=== PATIENT | female | born 1980 | race Caucasian/White ===

== ENCOUNTER 2023-12-19 23:27 | Emergency (ER) | payer OTHER, SELFPAY ==
[2023-12-19 23:34] VITALS: BP 127/88; PULSE 68; TEMP 37.3; O2SAT 98; BMI 35.9
--- NOTE | 2023-12-19 23:38 | XR_ITS ---
The [address] [address] Patient Name: KUN LANDAVERDE MRN: [id number] date: 1980 Sex: F Assigned Patient Location: ED.MAIN Current Patient Location: ER Accession/Order Number: [id number] Exam Date: 12/19/2023 23:59 Report Date: 12/20/2023 00:49 At the request of: AUDRA WIGGINS Procedure: XR cervical spine 2-3V EXAM: XR cervical spine 2-3V HISTORY: The patient is a 43-year-old female. Atraumatic pain for 3 days COMPARISON: None. FINDINGS: There is no radiographic evidence of fracture or loss of vertebral body height throughout the cervical spine. There is no malalignment or disc space narrowing. No prevertebral soft tissue swelling is seen. XR/XR cervical spine 2-3V IMPRESSION: Radiographically negative. Electronically authenticated by: LATOSHA IBANEZ Date: 12/20/2023 00:49
--- NOTE | 2023-12-19 23:39 | ED.NECK1 ---
HPI HPI - Neck Pain/Injury General Chief Complaint: Neck Pain/Injury Stated Complaint: Pain in Neck Time Seen by Provider: 12/19/23 23:29 Source: patient Mode of arrival: walk-in Limitations: no limitations History of Present Illness HPI Narrative: 43-year-old female presents for posterior neck pain of 3 days duration. She was helping somebody clean up their yard and she picked up a pallet and felt a snapping sensation in the back of her neck. It has been hurting since. She did not fall. The pain goes towards the shoulder but not into her arms and she has no weakness or numbness. No previous history of neck problems. Lower back does not hurt Related Data Previous Rx's ?Medication ?Instructions ?Recorded acetaminophen 300 mg-codeine 30 mg 1 tab PO Q6H PRN pain 5 days #20 12/20/23 tablet tabs methocarbamol 500 mg tablet 500 mg PO Q8H PRN pain #20 tabs 12/20/23 Allergies Allergy/AdvReac Type Severity Reaction Status Date / Time No Known Drug Allergies Allergy Verified 12/19/23 23:34 Opioid HPI Opioid Management Most Recent Opioid Data: Last Pain Scale 8 12/20/23 00:55 Last ED Pain Assessment 12/20/23 00:01 Last MAR Pain Assessment 12/20/23 00:55 Review of Systems ROS Narrative A ten point review of systems is negative except as noted above. Exam Narrative Exam Narrative: Nurses note and vital signs reviewed and patient is not hypoxic. General: The patient appears well and in no apparent distress. Patient is resting comfortably on cart. Skin: Warm, dry, no pallor noted. There is no rash noted. Head: Normocephalic, atraumatic Eye: Normal conjunctiva, no drainage Ears, Nose, Mouth, and Throat: oral mucosa is moist. Nares patent. Cardiovascular: Regular Rate and Rhythm Respiratory: Patient is in no distress, no accessory muscle use, lungs are clear to auscultation, no wheezing, rales or rhonchi Back: She is reluctant to turn her head. Cervical spine is not palpably tender. No bruising or swelling. GI: Soft and nontender Musculoskeletal: The patient has no evidence of calf tenderness, no pitting edema, symmetrical pulses noted bilaterally Neurological: A&O, normal speech, upper and lower extremity strength intact Psychiatric: Cooperative Constitutional Vital Signs, click to edit/add: Last Vital Signs Temp 99.1 F 12/19/23 23:34 Pulse 68 12/19/23 23:34 Resp 18 12/19/23 23:34 BP 127/88 12/19/23 23:34 Pulse Ox 98 12/19/23 23:34 O2 Del Method Room Air 12/19/23 23:34 Course Vital Signs Vital signs: Vital Signs Temperature 99.1 F 12/19/23 23:34 Pulse Rate 68 12/19/23 23:34 Respiratory Rate 18 12/19/23 23:34 Blood Pressure 127/88 12/19/23 23:34 Pulse Oximetry 98 12/19/23 23:34 Oxygen Delivery Method Room Air 12/19/23 23:34 Temperature 99.1 F 12/19/23 23:34 Pulse Rate 68 12/19/23 23:34 Respiratory Rate 18 12/19/23 23:34 Blood Pressure 127/88 12/19/23 23:34 Pulse Oximetry 98 12/19/23 23:34 Oxygen Delivery Method Room Air 12/19/23 23:34 MDM - Neck Pain/Injury MDM Narrative Medical decision making narrative: X-ray showed no acute finding per radiologist. She was given IM Toradol and Norflex here and prescribed Tylenol 3 and Robaxin for home. Treatment diagnosis and follow-up were discussed with the patient. Differential Diagnosis Differential diagnosis: Likely fracture of cervical spine without lesion of spinal cord, torticollis and strain of neck muscle Lab Data Labs: Lab Results 12/19/23 Range/Units 23:45 Urine HCG, Qual Negative (NEGATIVE) Imaging Data C-spine x-ray: Radiologist's impression: ITS Impressions Cervical Spine X-Ray 12/19/23 23:38 IMPRESSION: Radiographically negative. Electronically authenticated by: LATOSHA IBANEZ Date: 12/20/2023 00:49 Discharge Plan Discharge Stand Alone Forms: Portal Instructions Chief Complaint: Neck Pain/Injury Clinical Impression: Cervical muscle strain Patient Disposition: Home, Self-Care Time of Disposition Decision: 00:55 Condition: Good Mode of Transportation: Private Vehicle Prescriptions / Home Meds: New acetaminophen-codeine 300-30 mg tablet 1 tab PO Q6H PRN (Reason: pain) 5 Days Qty: 20 0RF methocarbamol 500 mg tablet 500 mg PO Q8H PRN (Reason: pain) Qty: 20 0RF Print Language: Lebanese Instructions: Cervical Strain (ED) Referrals: Physician,Non-Staff, MD [Primary Care Provider] - 1 week
[2023-12-20 00:04] LABS: HCG Qualitative Urine* NEGATIVE (NEGATIVE)
[2023-12-20] MEDS: KETOROLAC TROMETHAMINE 60 MG/2 ML VIAL IM (00:55)
[2023-12-20] MEDS: ORPHENADRINE 60 MG/ 2 ML VIAL IM (00:55)
== END 2023-12-20 01:00 | disposition home or self-care (01) ==
PROVIDERS: Emergency Provider Emergency Medicine
DX: S16.1XXA Strain of muscle, fascia and tendon at neck level, initial encounter (principal); X50.9XXA Other and unspecified overexertion or strenuous movements or postures, initial encounter
CPT/HCPCS: 72040; 84703; 96372; 99284

== ENCOUNTER 2024-08-27 16:31 | Observation (INO) | payer OTHER, SELFPAY ==
[2024-08-27] VITALS (28 sets, daily range): BP systolic 103–130; BP diastolic 69–83; PULSE 97–133; TEMP 36.9–37.1; O2SAT 90–98; BMI 37.1; BMI 39.2
--- OUTSIDE RECORDS SUMMARY | 2024-08-27 16:43 | XMS_ITS | CCD ---
Author Organization [facility] Care Team Providers Care Program Supervisor Name Role Phone DR SHANIQUE VALERIO Primary Care Unavailable AMMY PAZ Admitting Unavailable AMMY APZ Consulting Unavailable AMMY PAZ Attending Unavailable MARK OROZCO Consulting Unavailable MONSE CARRIZALES Consulting Unavailable DO Jose Carpio Emergency Provider NO FAMILY, PHYSICIAN Primary Care Provider Whitney Vega Primary Care Provider DELPHINE FERMIN Referring Unavailable MCCULLOUGH WHITNEY B Primary Care Unavailable TEETEE MCCULLOUGHIN B Referring Unavailable SADIA WHITNEY B Primary Care Unavailable OUSMANE SOTO Referring Unavailrafael e WHITNEY MCCULLOUGH Primary Care Unavailable DELPHINE FERMIN Referring Unavailable TEETEE MCCULLOUGHIN B Primary Care Unavailable OUSMANE SOTO Referring Unavailabl e SADIA WHITNEY B Primary Care Unavailable TIFFANIE KEARNEY Consulting Unavailable BHARAT NUÑEZ Admitting Unavaila BHARAT Leos Attending Unavaila ble JAIR HOUSTON Attending Unava OUSMANE Jamison Attending Unavailabl e OUSMANE SOTO Attending Unavailabl Fercho Nelson Attending Unavailab Fercho Zelaya Admitting Unavailab jessica NO FAMILY, PHYSICIAN Primary Care Unavailable Medications Current Medications Medication Drug Class(es) Dates Sig (Normalized) Sig (Original) 24 hr nicotine 0.875 mg/hr transdermal system (1 source) Cholinergic Nicotinic Agonist Start: 04-08-2023 End: 05-20-2023 apply 1 dose transdermal route once daily nicotine (NICODERM CQ) 21 MG/24HR Indications: Tobacco abuse Place 1 patch onto the skin daily 42 patch 0 04/08/2023 05/20/2023 Active PARoxetine hydrochloride 20 mg oral tablet (1 source) Serotonin Reuptake Inhibitor Start: 04-08-2023 take 1 tablet by mouth once daily PARoxetine (PAXIL) 20 MG tablet Indications: Anxiety and depression Take 1 tablet by mouth daily 30 tablet 3 04/08/2023 Active Problems Active Problems Problem Classification Problem Date Documented Date Episodic/Chronic Abdominal pain (4 sources) Unspecified abdominal pain; Translations: [UNSPECIFIED ABDOMINAL PAIN] Onset: 05-17-2022 Episodic Administrative/social admission (2 sources) Patient encounter status; Translations: [Persons encountering health services in other specified circumstances] 09-12-2022 Episodic Epilepsy; convulsions (1 source) Neurological finding; Translations: [Unspecified convulsions] Onset: 04-08-2023 04-08-2023 Episodic Immunizations and screening for infectious disease (4 sources) Encounter for screening for human papillomavirus (HPV); Translations: [Encounter for screening for human papillomavirus (HPV)] Onset: 05-26-2023 Episodic Menstrual disorders (4 sources) Irregular menstruation, unspecified; Translations: [Irregular menstruation, unspecified] Onset: 07-14-2023 Chronic Other nutritional; endocrine; and metabolic disorders (1 source) Body mass index 30+ - obesity; Translations: [Body mass index (BMI) 33.0-33.9, adult] Onset: 04-08-2023 04-08-2023 Chronic Residual codes; unclassified (1 source) Acquired absence of other specified parts of digestive tract; Translations: [ACQ ABSENCE OTH PART DIGESTV TRACT] Onset: 05-21-2022 Episodic Schizophrenia and other psychotic disorders (1 source) Unspecified psychosis not due to a substance or known physiological condition; Translations: [Unspecified psychosis not due to a substance or known physiological condition] Onset: 08-18-2023 Chronic Substance-related disorders (1 source) Nicotine dependence, cigarettes, uncomplicated; Translations: [NICOTINE DEPEND CIGARETTES UNCOMP] Onset: 05-21-2022 Chronic Unclassified (4 sources) BX; Translations: [BX] Onset: 07-25-2023 Unclassified (1 source) Homelessness unspecified; Translations: [Homelessness unspecified] Onset: 08-11-2023 Past or Other Problems Problem Classification Problem Date Documented Da te Episodic/Chronic Other screening for suspected conditions (not mental disorders or infectious disease) (2 sources) Encounter for screening mammogram for malignant neoplasm of breast; Translations: [Encounter for screening mammogram for malignant neoplasm of breast] Onset: 04-30-2023 Episodic Results Test Name Value Interpretation Reference Range Facility Hepatitis Acute [facility] 08-15 Hep A Ab,IgM Non-Reactive Normal NR [facility] Comment on above: Performed By: #### T SHX, PTT, BHCG, CDP, PT #### [facility] [address] [place] [address] Vat Tender: Pierre Cowart DO #### E2, FSH, LH #### [address] [address] Vat Tender: Robert Neri MD Hep B Core Ab,IgM Non-Reactive Normal [facility] Comment on above: Performed By: #### T SHX, PTT, BHCG, CDP, PT #### [facility] [address] [place] [address] Vat Tender: Pierre Cowart DO #### E2, FSH, LH #### [address] [address] Vat Tender: Robert Neri MD Hep B Surf Ag Non-Reactive Normal [facility] Comment on above: Performed By: #### T SHX, PTT, BHCG, CDP, PT #### [facility] [address] [place] [address] Vat Tender: Pierre Cowart DO #### E2, FSH, LH #### [address] [address] Vat Tender: Robert Neri MD Hep C Ab Non-Reactive Normal [facility] Comment on above: Result Comment: The hepatitis C procedure used in our laboratory is a Chemiluminescent test specific for three recombinant HCV antigens. A negative anti-HCV result indicates that the antibodies to hepatitis C virus are not present at this time. Individuals with reactive anti-HCV should be considered infected and infectious until proven otherwise. Confirmation of all equivocal or reactive results is recommended by ordering HCV RNA by PCR. Performed By: #### T SHX, PTT, BHCG, CDP, PT #### [facility] [address] [place] [address] Vat Tender: Pierre Cowart DO #### E2, FSH, LH #### [address] [address] Vat Tender: Robert Neri MD CBC with Diffon 08-13-2023 Abs. Basophil 0.10 k/uL Normal 0.0-0.2 [facility] Comment on above: Performed By: #### T SHX, PTT, BHCG, CDP, PT #### [facility] [place] [address] Vat Tender: Pierre Cowart DO #### E2, FSH, LH #### [address] [address] Vat Tender: Robert Neri MD Abs.Neutrophil (Seg) 5.00 k/uL Normal 1.3-9.1 [facility] Comment on above: Performed By: #### T SHX, PTT, BHCG, CDP, PT #### [facility] [place] [address] Vat Tender: Pierre Cowart DO #### E2, FSH, LH #### [address] [address] Vat Tender: Robert Neri MD Basophils/100 WBC (Bld) 1 % Normal 0-2 [facility] Comment on above: Performed By: #### T SHX, PTT, BHCG, CDP, PT #### [facility] [place] [address] Vat Tender: Pierre Cowart DO #### E2, FSH, LH #### [address] [address] Vat Tender: Robert Neri MD Eosinophils (Bld) [#/Vol] 0.20 10*3/uL Normal 0.0-0.4 [facility] Comment on above: Performed By: #### T SHX, PTT, BHCG, CDP, PT #### [facility] [address] [place] [address] Vat Tender: Pierre Cowart DO #### E2, FSH, LH #### [address] [address] Vat Tender: Robert Neri MD Eosinophils/100 WBC (Bld) 2 % Normal 0-4 [facility] Comment on above: Performed By: #### T SHX, PTT, BHCG, CDP, PT #### [facility] [address] [place] [address] Vat Tender: Pierre Cowart DO #### E2, FSH, LH #### [address] [address] Vat Tender: Robert Neri MD Erythrocyte distribution width (RBC) [Ratio] 14.9 % Normal 11.5-14.9 [facility] Comment on above: Performed By: #### T SHX, PTT, BHCG, CDP, PT #### [facility] [address] [place] [address] Vat Tender: Pierre Cowart DO #### E2, FSH, LH #### [address] [address] Vat Tender: Robert Neri MD Hematocrit (Bld) [Volume fraction] 39.6 % Normal 36-46 [facility] Comment on above: Performed By: #### T SHX, PTT, BHCG, CDP, PT #### [facility] [address] [place] [address] Vat Tender: Pierre Cowart DO #### E2, FSH, LH #### [address] [place] [address] Vat Tender: Robert Neri MD Hemoglobin (Bld) [Mass/Vol] 12.7 g/dL Normal 12.0-16.0 [facility] Comment on above: Performed By: #### T SHX, PTT, BHCG, CDP, PT #### [facility] [place] [address] Vat Tender: Pierre Cowart DO #### E2, FSH, LH #### [address] [place] [address] Vat Tender: Robert Neri MD Lymphocytes (Bld) [#/Vol] 2.70 10*3/uL Normal 1.0-4.8 [facility] Comment on above: Performed By: #### T SHX, PTT, BHCG, CDP, PT #### [facility] [address] [place] [address] Vat Tender: Pierre Cowart DO #### E2, FSH, LH #### [address] [address] Vat Tender: Robert Neri MD Lymphocytes/100 WBC (Bld) 31 % Normal 24-44 [facility] Comment on above: Performed By: #### T SHX, PTT, BHCG, CDP, PT #### [facility] [place] [address] Vat Tender: Pierre Cowart DO #### E2, FSH, LH #### [address] [address] Vat Tender: Robert Neri MD MCH (RBC) [Entitic mass] 27.5 pg Normal 26-34 [facility] Comment on above: Performed By: #### T SHX, PTT, BHCG, CDP, PT #### [facility] [address] [place] [address] Vat Tender: Pierre Cowart DO #### E2, FSH, LH #### [address] [address] Vat Tender: Robert Neri MD MCHC (RBC) [Mass/Vol] 32.0 g/dL Normal 31-37 [facility] Comment on above: Performed By: #### T SHX, PTT, BHCG, CDP, PT #### [facility] [place] [address] Vat Tender: Pierre Cowart DO #### E2, FSH, LH #### [address] [address] Vat Tender: Robert Neri MD MCV (RBC) [Entitic vol] 86.1 fL Normal 80-100 [facility] Comment on above: Performed By: #### T SHX, PTT, BHCG, CDP, PT #### [facility] [place] [address] Vat Tender: Pierre Cowart DO #### E2, FSH, LH #### [address] [address] Vat Tender: Robert Neri MD Monocytes (Bld) [#/Vol] 0.80 10*3/uL Normal 0.1-1.3 [facility] Comment on above: Performed By: #### T SHX, PTT, BHCG, CDP, PT #### [facility] [address] [place] [address] Vat Tender: Pierre Cowart DO #### E2, FSH, LH #### [address] [address] Vat Tender: Robert Neri MD Monocytes/100 WBC (Bld) 10 % High 1-7 [facility] Comment on above: Performed By: #### T SHX, PTT, BHCG, CDP, PT #### [facility] [address] [place] [address] Vat Tender: Pierre Cowart DO #### E2, FSH, LH #### [address] [address] Vat Tender: Robert Neri MD Neutrophil (Seg) 56 % Normal 36-66 [facility] Comment on above: Performed By: #### T SHX, PTT, BHCG, CDP, PT #### [facility] [address] [place] [address] Vat Tender: Pierre Cowart DO #### E2, FSH, LH #### [address] [address] Vat Tender: Robert Neri MD Platelet mean volume (Bld) [Entitic vol] 9.7 fL Normal 6.0-12.0 [facility] Comment on above: Performed By: #### T SHX, PTT, BHCG, CDP, PT #### [facility] [address] [place] [address] Vat Tender: Pierre Cowart DO #### E2, FSH, LH #### [address] [address] Vat Tender: Robert Neri MD Platelets (Bld) [#/Vol] 228 10*3/uL Normal 150-450 [facility] Comment on above: Performed By: #### T SHX, PTT, BHCG, CDP, PT #### [facility] [place] [address] Vat Tender: Pierre Cowart DO #### E2, FSH, LH #### [address] [address] Vat Tender: Robert Neri MD RBC (Bld) [#/Vol] 4.60 10*6/uL Normal 4.0-5.2 [facility] Comment on above: Performed By: #### T SHX, PTT, BHCG, CDP, PT #### [facility] [address] [place] [address] Vat Tender: Pierre Cowart DO #### E2, FSH, LH #### [address] [address] Vat Tender: Robert Neri MD WBC (Bld) [#/Vol] 8.9 10*3/uL Normal 3.5-11.0 [facility] Comment on above: Performed By: #### T SHX, PTT, BHCG, CDP, PT #### [facility] [address] [place] [address] Vat Tender: Pierre Cowart DO #### E2, FSH, LH #### [address] [address] Vat Tender: Robert Neri MD Comp Metabolic Pr/rfx MGon 1 10-14-2022 Albumin [Mass/Vol] 3.5 g/dL Normal 3.5-5.2 [facility] Comment on above: Performed By: #### T SHX, PTT, BHCG, CDP, PT #### [facility] [address] [place] [address] Vat Tender: Pierre Cowart DO #### E2, FSH, LH #### [address] [address] Vat Tender: Robert Neri MD Alkaline Phos 73 U/L Normal 35-104 [facility] Comment on above: Performed By: #### T SHX, PTT, BHCG, CDP, PT #### [facility] [address] [place] [address] Vat Tender: Pierre Cowart DO #### E2, FSH, LH #### [address] [address] Vat Tender: Robert Neri MD ALT [Catalytic activity/Vol] 36 U/L High 5-33 [facility] Comment on above: Performed By: #### T SHX, PTT, BHCG, CDP, PT #### [facility] [address] [place] [address] Vat Tender: Pierre Cowart DO #### E2, FSH, LH #### [address] [address] Vat Tender: Robert Neri MD Anion gap [Moles/Vol] 6 mmol/L Low 9-17 [facility] Comment on above: Performed By: #### T SHX, PTT, BHCG, CDP, PT #### [facility] [address] [place] [address] Vat Tender: Pierre Cowart DO #### E2, FSH, LH #### [address] [address] Vat Tender: Robert Neri MD AST [Catalytic activity/Vol] 25 U/L Normal <32 [facility] Comment on above: Performed By: #### T SHX, PTT, BHCG, CDP, PT #### [facility] [address] [place] [address] Vat Tender: Pierre Cowart DO #### E2, FSH, LH #### [address] [address] Vat Tender: Robert Neri MD Bilirubin [Mass/Vol] 0.3 mg/dL Normal 0.3-1.2 [facility] Comment on above: Performed By: #### T SHX, PTT, BHCG, CDP, PT #### [facility] [address] [place] [address] Vat Tender: Pierre Cowart DO #### E2, FSH, LH #### [address] [address] Vat Tender: Robert Neri MD Calcium [Mass/Vol] 8.6 mg/dL Normal 8.6-10.4 [facility] Comment on above: Performed By: #### T SHX, PTT, BHCG, CDP, PT #### [facility] [address] [place] [address] Vat Tender: Pierre Cowart DO #### E2, FSH, LH #### [address] [address] Vat Tender: Robert Neri MD Chloride [Moles/Vol] 106 mmol/L Normal 98-107 [facility] Comment on above: Performed By: #### T SHX, PTT, BHCG, CDP, PT #### [facility] [address] [place] [address] Vat Tender: Pierre Cowart DO #### E2, FSH, LH #### [address] [address] Vat Tender: Robert Neri MD CO2 [Moles/Vol] 28 mmol/L Normal 20-31 [facility] Comment on above: Performed By: #### T SHX, PTT, BHCG, CDP, PT #### [facility] [address] [place] [address] Vat Tender: Pierre Cowart DO #### E2, FSH, LH #### [address] [address] Vat Tender: Robert Neri MD Creatinine [Mass/Vol] 0.8 mg/dL Normal 0.5-0.9 [facility] Comment on above: Performed By: #### T SHX, PTT, BHCG, CDP, PT #### [facility] [address] [place] [address] Vat Tender: Pierre Cowart DO #### E2, FSH, LH #### [address] [phone] Vat Tender: Robert Neri MD GFR/1.73 sq M.predicted among non-blacks MDRD (S/P/Bld) [Vol rate/Area] mL/min/{1.73_m2} Normal >60 [facility] Comment on above: Result Comment: These results are not intended for use in patients <18 years of age. eGFR results are calculated without a race factor using the 2020 CKD-EPI equation. Careful clinical correlation is recommended, particularly when comparing to results calculated using previous equations. The CKD-EPI equation is less accurate in patients with extremes of muscle mass, extra-renal metabolism of creatine, excessive creatine ingestion, or following therapy that affects renal tubular secretion. Performed By: #### T SHX, PTT, BHCG, CDP, PT #### [facility] [address] [place] [address] Vat Tender: Pierre Cowart DO #### E2, FSH, LH #### [address] [phone] Vat Tender: Robert Neri MD Glucose [Mass/Vol] 94 mg/dL Normal 70-99 [facility] Comment on above: Performed By: #### T SHX, PTT, BHCG, CDP, PT #### [facility] [address] [place] [address] Vat Tender: Pierre Cowart DO #### E2, FSH, LH #### [address] [address] Vat Tender: Robert Neri MD Potassium [Moles/Vol] 4.6 mmol/L Normal 3.7-5.3 [facility] Comment on above: Performed By: #### T SHX, PTT, BHCG, CDP, PT #### [facility] [place] [address] Vat Tender: Pierre Cowart DO #### E2, FSH, LH #### [address] [address] Vat Tender: Robert Neri MD Protein [Mass/Vol] 5.8 g/dL Low 6.4-8.3 [facility] Comment on above: Performed By: #### T SHX, PTT, BHCG, CDP, PT #### [facility] [place] [address] Vat Tender: Pierre Cowart DO #### E2, FSH, LH #### [address] [address] Vat Tender: Robert Neri MD Sodium [Moles/Vol] 140 mmol/L Normal 135-144 [facility] Comment on above: Performed By: #### T SHX, PTT, BHCG, CDP, PT #### [facility] [place] [address] Vat Tender: Fanelly, Pierre, DO #### E2, FSH, LH #### [address] [place] [address] Vat Tender: Robert Neri MD Urea nitrogen [Mass/Vol] 7 mg/dL Normal 6-20 [facility] Comment on above: Performed By: #### T SHX, PTT, BHCG, CDP, PT #### [facility] [address] [place] [address] Vat Tender: Pierre Cowart DO #### E2, FSH, LH #### [address] [address] Vat Tender: Robert Neri MD Hemoglobin A1Con 9 Glucose [Mass/Vol] 111 mg/dL Normal [facility] Comment on above: Result Comment: The ADA and AACC recommend providing the estimated average glucose result to permit better patient understanding of their HBA1c result. Performed By: #### T SHX, PTT, BHCG, CDP, PT #### [facility] [address] [place] [address] Vat Tender: Pierre Cowart DO #### E2, FSH, LH #### [address] [address] Vat Tender: Robert Neri MD HbA1c (Bld) [Mass fraction] 5.5 % Normal 4.0-6.0 [facility] Comment on above: Performed By: #### T SHX, PTT, BHCG, CDP, PT #### [facility] [address] [place] [address] Vat Tender: Pierre Cowart DO #### E2, FSH, LH #### [address] [address] Vat Tender: Robert Neri MD Lipid Profileon 08-13-2023 Cholesterol [Mass/Vol] 116 mg/dL Normal <200 [facility] Comment on above: Result Comment: Cholesterol Guidelines: <200 Desirable 200-240 Borderline >240 Undesirable Performed By: #### T SHX, PTT, BHCG, CDP, PT #### [facility] [address] [place] [address] Vat Tender: Pierre Cowart DO #### E2, FSH, LH #### [address] [address] Vat Tender: Robert Neri MD Cholesterol in HDL [Mass/Vol] 48 mg/dL Normal >40 [facility] Comment on above: Result Comment: HDL Guidelines: <40 Undesirable 40-59 Borderline >59 Desirable Performed By: #### T SHX, PTT, BHCG, CDP, PT #### [facility] [place] [address] Vat Tender: Pierre Cowart DO #### E2, FSH, LH #### [address] [address] Vat Tender: Robert Neri MD Cholesterol in LDL [Mass/Vol] 52 mg/dL Normal 0-130 [facility] Comment on above: Result Comment: LDL Guidelines: <100 Desirable 100-129 Near to/above Desirable 130-159 Borderline >159 Undesirable Direct (measured) LDL and calculated LDL are not interchangeable tests. Performed By: #### T SHX, PTT, BHCG, CDP, PT #### [facility] [address] [place] [address] Vat Tender: Pierre Cowart DO #### E2, FSH, LH #### [address] [address] Vat Tender: Robert Neri MD Cholesterol.total/Yamileth sterol in HDL [Mass ratio] 2.4 {ratio} Normal <5 [facility] Comment on above: Performed By: #### T SHX, PTT, BHCG, CDP, PT #### [facility] [place] [address] Vat Tender: Pierre Cowart DO #### E2, FSH, LH #### [address] [address] Vat Tender: Robert Neri MD Triglyceride [Mass/Vol] 81 mg/dL Normal <150 [facility] Comment on above: Result Comment: Triglyceride Guidelines: <150 Desirable 150-199 Borderline 200-499 High >499 Very high Based on AHA Guidelines for fasting triglyceride, May 2012. Performed By: #### T SHX, PTT, BHCG, CDP, PT #### [facility] [address] [place] [address] Vat Tender: Pierre Cowart DO #### E2, FSH, LH #### [address] [address] Vat Tender: Robert Neri MD TSH w/reflex to FT4on 2022 Thyroid Stim. Horm. 3.88 uIU/mL Normal 0.30-5.00 [facility] Comment on above: Performed By: #### T SHX, PTT, BHCG, CDP, PT #### [facility] [address] [place] [address] Vat Tender: Pierre Cowart DO #### E2, FSH, LH #### [address] [address] Vat Tender: Robert Neri MD Drug Scr, Abuse, Uron 2022 Amphetamine(s),Ur Negative Normal NEG [facility] Comment on above: Result Comment: (Positive cutoff 1000 ng/mL) Performed By: #### U MICAO, SCOTT, UAX #### [facility] [address] [place] [address] Vat Tender: Pierre Cowart DO Barbiturate(s),Ur Negative Normal NEG [facility] Comment on above: Result Comment: (Positive cutoff 200 ng/mL) Performed By: #### U MICAO, SCOTT, UAX #### [facility] [place] [address] Vat Tender: Pierre Cowart DO Benzodiazepine(s) Negative Normal NEG [facility] Comment on above: Result Comment: (Positive cutoff 200 ng/mL) Performed By: #### U MICAO, SCOTT, UAX #### [facility] [address] [place] [address] Vat Tender: Pierre Cowart DO Cannabinoid(s),Ur Positive Abnormal NEG [facility] Comment on above: Result Comment: (Positive cutoff 50 ng/mL) Performed By: #### U MICAO, SCOTT, UAX #### [facility] [address] [place] [address] Vat Tender: Pierre Cowart DO Cocaine Metabolite Negative Normal NEG [facility] Comment on above: Result Comment: (Positive cutoff 300 ng/mL) Performed By: #### U MICAO, SCOTT, UAX #### [facility] [address] [place] [address] Vat Tender: Pierre Cowart DO Fentanyl, Urine Negative Normal NEG [facility] Comment on above: Result Comment: (Positive cutoff 5 ng/ml) Performed By: #### U MICAO, SCOTT, UAX #### [facility] [address] [place] [address] Vat Tender: Pierre Cowart DO Interpretive Info Assay provides medical screening only. The absence of expected drug(s) and/or Normal [facility] Comment on above: Result Comment: meta bolite(s) may indicate diluted or adulterated urine, limitations of testing or timing of collection. Testing for legal purposes should be confirmed by another method. To request confirmation of test result, please call the lab within 7 days of sample submission. Performed By: #### U MICAO, SCOTT, UAX #### [facility] [address] [place] [address] Vat Tender: Pierre Cowart DO Methadone Ql (U) Negative Normal NEG [facility] Comment on above: Result Comment: (Positive cutoff 300 ng/mL) Performed By: #### U MICAO, SCOTT, UAX #### [facility] [address] [place] [address] Vat Tender: Pierre Cowart DO Opiate(s), Ur Negative Normal NEG [facility] Comment on above: Result Comment: (Positive cutoff 300 ng/mL) Performed By: #### U MICAO, SCOTT, UAX #### [facility] [address] [place] [address] Vat Tender: Pierre Cowart DO Oxycodone, Urine Negative Normal NEG [facility] Comment on above: Result Comment: (Positive cutoff 100 ng/mL) Performed By: #### U MICAO, SCOTT, UAX #### [facility] [address] [place] [address] Vat Tender: Pierre Cowart DO Phencyclidine, Ur Negative Normal NEG [facility] Comment on above: Result Comment: (Positive cutoff 25 ng/mL) Performed By: #### U MICAO, SCOTT, UAX #### [facility] [address] [place] [address] 59341 Vat Tender: Pierre Cowart DO UA w/Reflex Cultureon 2022 Bilirubin, SemiQt,Ur Negative Normal NEG [facility] Comment on above: Performed By: #### U MICAO, SCOTT, UAX #### [facility] [address] [place] [address] 97490 Vat Tender: Pierre Cowart DO Blood, Urine Negative Normal NEG [facility] Comment on above: Performed By: #### U MICAO, SCOTT, UAX #### [facility] [address] [place] [address] 7[address]42 Vat Tender: Pierre Cowart DO Clarity (U) Turbid Abnormal CLEAR [facility] Comment on above: Performed By: #### U MICAO, SCOTT, UAX #### [facility] [address] [place] [address] 91763 Vat Tender: Pierre Cowart DO Color (U) Yellow Normal YEL [facility] Comment on above: Performed By: #### U KYLIEO, SCOTT, UAX #### [facility] [address] [place] [address] 01722 Vat Tender: Pierre Cowart DO Glucose Ql (U) Negative Normal NEG [facility] Comment on above: Performed By: #### U MICAO, SCOTT, UAX #### [facility] [address] [place] [address] 56769 Vat Tender: Pierre Cowart DO Ketones Ql (U) Negative Normal NEG [facility] Comment on above: Performed By: #### U MICAO, SCOTT, UAX #### [facility] [address] [place] [address] 01895 Vat Tender: Pierre Cowart DO Leukocyte esterase Test strip Ql (U) Negative Normal NEG [facility] Comment on above: Performed By: #### U MICAO, SCOTT, UAX #### [facility] [address] [place] [address] 89927 Vat Tender: Pierre Cowart DO Nitrite,Ur Negative Normal NEG [facility] Comment on above: Performed By: #### U MICAO, SCOTT, UAX #### [facility] [place] [address] Vat Tender: Pierre Cowart DO PH,Ur >=9.0 Normal 5.0-8.0 [facility] Comment on above: Performed By: #### U MICAO, SCOTT, UAX #### [facility] [address] [place] [address] 17179 Vat Tender: Pierre Cowart DO Protein Ql (U) Negative Normal NEG [facility] Comment on above: Performed By: #### U MICAO, SCOTT, UAX #### [facility] [address] [place] [address] 21886 Vat Tender: Pierre Cowart DO Spec. [place],Ur 1.016 Normal 1.000-1.030 [facility] Comment on above: Performed By: #### U MICAO, SCOTT, UAX #### [facility] [address] [place] [address] 33189 Vat Tender: Pierre Cowart DO Urobilinogen,Ur Normal Normal 0.0-1.0 [facility] Comment on above: Performed By: #### U MICAO, SCOTT, UAX #### [facility] [address] [place] [address] 50014 Vat Tender: Pierre Cowart DO Urinalysis,Microon 3 Bacteria FEW Abnormal NONE [facility] Comment on above: Performed By: #### T SHX, PTT, BHCG, CDP, PT #### [facility] [address] [place] [address] 45144 Vat Tender: Pierre Cowart DO #### E2, FSH, LH #### [address] [address] Vat Tender: Robert Neri MD Casts 0 TO 2 Abnormal NONE [facility] Comment on above: Performed By: #### T SHX, PTT, BHCG, CDP, PT #### [facility] [address] [place] [address] Vat Tender: Pierre Cowart DO #### E2, FSH, LH #### [address] [address] Vat Tender: Robert Neri MD Epithelial cells LM Ql (Urine sed) 10 TO 20 Normal [facility] Comment on above: Performed By: #### T SHX, PTT, BHCG, CDP, PT #### [facility] [address] [place] [address] Vat Tender: Pierre Cowart DO #### E2, FSH, LH #### [address] [address] Vat Tender: Robert Neri MD Urine RBC's 0 TO 2 Normal R02 [facility] Comment on above: Performed By: #### T SHX, PTT, BHCG, CDP, PT #### [facility] [address] [place] [address] Vat Tender: Pierre Cowart DO #### E2, FSH, LH #### [address] [address] Vat Tender: Robert Neri MD Urine WBC's 3 to 5 Abnormal R05 [facility] Comment on above: Performed By: #### T SHX, PTT, BHCG, CDP, PT #### [facility] [address] [place] [address] Vat Tender: Pierre Cowart DO #### E2, FSH, LH #### [address] [place] [phone] Vat Tender: Robert Neri MD Surgical Pathology Reporton 07-25-2023 Surgical Pathology Report (NOTE) Path Number: [id number] -- Diagnosis -- UTERINE CAVITY, BIOPSY: - BENIGN ENDOCERVICAL TISSUE, SCANT SQUAMOUS EPITHELIUM AND MUCUS. - NO DIAGNOSTIC ENDOMETRIAL TISSUE IS IDENTIFIED. - NEGATIVE FOR ATYPIA AND MALIGNANCY. Marvin Mnceil M.D. Electronically Signed Out [facility]/07/29/2023 Clinical Information Pre-Op Diagnosis: IRREGULAR MENSES; SEVERE DYSMENORRHEA; LEFT OVARIAN CYST Operative Findings: ENDOMETRIUM kb Source of Specimen A: ENDOMETRIUM BIOPSY Gross Description KIERA LANDAVERDETHALIA BX Received in formalin is cloudy mason mucous, 2.8 x 2.5 x 0.2 cm in aggregate. Entirely 1cs. jj tm [facility]/kb2:07/28/2023 Microscopic Description The specimen consists of detached fragments of benign endocervical epithelium and stroma, scant squamous epithelium, and intermixed mucus. No diagnostic endometrial tissue is identified. There is no evidence of atypia or malignancy. Processing Lab: [address] [id number] Interpretation Performed at [address] [id number] SURGICAL PATHOLOGY CONSULTATION Patient Name: KIERA LANDAVERDE [facility] Rec: [id number] [facility] ANATOMIC PATHOLOGY [address] [place] [id number] Normal [facility] APTTon 07-14-2023 aPTT Coag (Bld) [Time] 29.9 s Normal 24.0-36.0 [facility] Comment on above: Result Comment: IV Heparin Therapy Range: 62.0-94.0 Performed By: #### B HCG, CDP, PT, TSHX, PTT #### [facility] [address] [place], [place] [id number] Vat Tender: Pierre Cowart DO #### E2, FSH, LH #### [address] [place] [address] Vat Tender: Robert Neri MD Performed By: #### T SHX, PTT, BHCG, CDP, PT #### [facility] [address] [place] [address] Vat Tender: Pierre Cowart DO #### E2, FSH, LH #### [address] [address] Vat Tender: Robert Neri MD CBC with Diffon 07-14-2023 Abs. Basophil 0.10 k/uL Normal 0.0-0.2 [facility] Comment on above: Performed By: #### B HCG, CDP, PT, TSHX, PTT #### [facility] [address] [place] [address] Vat Tender: Pierre Cowart DO #### E2, FSH, LH #### [address] [address] Vat Tender: Robert Neri MD Performed By: #### T SHX, PTT, BHCG, CDP, PT #### [facility] [address] [place] [address] Vat Tender: Pierre Cowart DO #### E2, FSH, LH #### [address] [address] Vat Tender: Robert Neri MD Abs.Neutrophil (Seg) 6.70 k/uL Normal 1.3-9.1 [facility] Comment on above: Performed By: #### B HCG, CDP, PT, TSHX, PTT #### [facility] [address] [place] [address] Vat Tender: Pierre Cowart DO #### E2, FSH, LH #### [address] [address] Vat Tender: Robert Neri MD Performed By: #### T SHX, PTT, BHCG, CDP, PT #### [facility] [address] [place] [address]231 Vat Tender: Pierre Cowart DO #### E2, FSH, LH #### [address] [address] Vat Tender: Robert Neri MD Basophils/100 WBC (Bld) 1 % Normal 0-2 [facility] Comment on above: Performed By: #### B HCG, CDP, PT, TSHX, PTT #### [facility] [address] [place] [address] 9[address] Vat Tender: Pierre Cowart DO #### E2, FSH, LH #### [place] [address] Vat Tender: Robert Neri MD Performed By: #### T SHX, PTT, BHCG, CDP, PT #### [facility] [address] [place] [address] Vat Tender: Pierre Cowart DO #### E2, FSH, LH #### [place] [address] Vat Tender: Robert Neri MD Eosinophils (Bld) [#/Vol] 0.10 10*3/uL Normal 0.0-0.4 [facility] Comment on above: Performed By: #### B HCG, CDP, PT, TSHX, PTT #### [facility] [address] [place] [address] Vat Tender: Pierre Cowart DO #### E2, FSH, LH #### [address] [address] Vat Tender: Robert Neri MD Performed By: #### T SHX, PTT, BHCG, CDP, PT #### [facility] [address] [place] [address] Vat Tender: Pierre Cowart DO #### E2, FSH, LH #### [address] [address] Vat Tender: Robert Neri MD Eosinophils/100 WBC (Bld) 1 % Normal 0-4 [facility] Comment on above: Performed By: #### B HCG, CDP, PT, TSHX, PTT #### [facility] [address] [place] [address] Vat Tender: Pierre Cowart DO #### E2, FSH, LH #### [address] [phone] Vat Tender: Robert Neri MD Performed By: #### T SHX, PTT, BHCG, CDP, PT #### [facility] [place] [address] Vat Tender: Pierre Cowart DO #### E2, FSH, LH #### [address] [address] Vat Tender: Robert Neri MD Erythrocyte distribution width (RBC) [Ratio] 14.4 % Normal 11.5-14.9 [facility] Comment on above: Performed By: #### B HCG, CDP, PT, TSHX, PTT #### [facility] [place] [address] Vat Tender: Pierre Cowart DO #### E2, FSH, LH #### [address] [address] Vat Tender: Robert Neri MD Performed By: #### T SHX, PTT, BHCG, CDP, PT #### [facility] [place] [address] Vat Tender: Pierre Cowart DO #### E2, FSH, LH #### [address] [address] Vat Tender: Robert Neri MD Hematocrit (Bld) [Volume fraction] 43.1 % Normal 36-46 [facility] Comment on above: Performed By: #### B HCG, CDP, PT, TSHX, PTT #### [facility] [address] [place] [address] Vat Tender: Pierre Cowart DO #### E2, FSH, LH #### [address] [address] Vat Tender: Robert Neri MD Performed By: #### T SHX, PTT, BHCG, CDP, PT #### [facility] [address] [place] [address] 24050 Vat Tender: Pierre Cowart DO #### E2, FSH, LH #### [address] [address] Vat Tender: Robert Neri MD Hemoglobin (Bld) [Mass/Vol] 14.1 g/dL Normal 12.0-16.0 [facility] Comment on above: Performed By: #### B HCG, CDP, PT, TSHX, PTT #### [facility] [address] [place] [address] Vat Tender: Pierre Cowart DO #### E2, FSH, LH #### [address] [address] Vat Tender: Robert Neri MD Performed By: #### T SHX, PTT, BHCG, CDP, PT #### [facility] [address] [place] [address] 8[address]32 Vat Tender: Pierre Cowart DO #### E2, FSH, LH #### [address] [address] Vat Tender: Robert Neri MD Lymphocytes (Bld) [#/Vol] 1.80 10*3/uL Normal 1.0-4.8 [facility] Comment on above: Performed By: #### B HCG, CDP, PT, TSHX, PTT #### [facility] [address] [place] [address]88 Vat Tender: Pierre Cowart DO #### E2, FSH, LH #### [address] [address] Vat Tender: Robert Neri MD Performed By: #### T SHX, PTT, BHCG, CDP, PT #### [facility] [address] [place] [address] Vat Tender: Pierre Cowart DO #### E2, FSH, LH #### [address] [address] Vat Tender: Robert Neri MD Lymphocytes/100 WBC (Bld) 19 % Low 24-44 [facility] Comment on above: Performed By: #### B HCG, CDP, PT, TSHX, PTT #### [facility] [address] [place] [address] Vat Tender: Pierre Cowart DO #### E2, FSH, LH #### [address] [address] Vat Tender: Robert Neri MD Performed By: #### T SHX, PTT, BHCG, CDP, PT #### [facility] [address] [place] [address] Vat Tender: Pierre Cowart DO #### E2, FSH, LH #### [address] [address] Vat Tender: Robert Neri MD MCH (RBC) [Entitic mass] 27.8 pg Normal 26-34 [facility] Comment on above: Performed By: #### B HCG, CDP, PT, TSHX, PTT #### [facility] [address] [place] [address] Vat Tender: Pierre Cowart DO #### E2, FSH, LH #### [address] [address] Vat Tender: Robert Neri MD Performed By: #### T SHX, PTT, BHCG, CDP, PT #### [facility] [address] [place] [address] Vat Tender: Pierre Cowart DO #### E2, FSH, LH #### [address] [address] Vat Tender: Robert Neri MD MCHC (RBC) [Mass/Vol] 32.6 g/dL Normal 31-37 [facility] Comment on above: Performed By: #### B HCG, CDP, PT, TSHX, PTT #### [facility] [address] [place] [address] Vat Tender: Pierre Cowart DO #### E2, FSH, LH #### [address] [address] Vat Tender: Robert Neri MD Performed By: #### T SHX, PTT, BHCG, CDP, PT #### [facility] [address] [place] [address] Vat Tender: Pierre Cowart DO #### E2, FSH, LH #### [address] [address] Vat Tender: Robert Neri MD MCV (RBC) [Entitic vol] 85.2 fL Normal 80-100 [facility] Comment on above: Performed By: #### B HCG, CDP, PT, TSHX, PTT #### [facility] [place] [address] Vat Tender: Pierre Cowart DO #### E2, FSH, LH #### [address] [address] Vat Tender: Robert Neri MD Performed By: #### T SHX, PTT, BHCG, CDP, PT #### [facility] [address] [place] [address] Vat Tender: Pierre Cowart DO #### E2, FSH, LH #### [address] [address] Vat Tender: Robert Neri MD Monocytes (Bld) [#/Vol] 1.00 10*3/uL Normal 0.1-1.3 [facility] Comment on above: Performed By: #### B HCG, CDP, PT, TSHX, PTT #### [facility] [address] [place] [address] Vat Tender: Pierre Cowart DO #### E2, FSH, LH #### [address] [address] Vat Tender: Robert Neri MD Performed By: #### T SHX, PTT, BHCG, CDP, PT #### [facility] [address] [place] [address] Vat Tender: Pierre Cowart DO #### E2, FSH, LH #### [address] [place] [address] Vat Tender: Robert Neri MD Monocytes/100 WBC (Bld) 11 % High 1-7 [facility] Comment on above: Performed By: #### B HCG, CDP, PT, TSHX, PTT #### [facility] [address] [place] [address] Vat Tender: Pierre Cowart DO #### E2, FSH, LH #### [address] [address] Vat Tender: Robert Neri MD Performed By: #### T SHX, PTT, BHCG, CDP, PT #### [facility] [address] [place] [address] Vat Tender: Pierre Cowart DO #### E2, FSH, LH #### [address] [address] Vat Tender: Robert Neri MD Neutrophil (Seg) 68 % High 36-66 [facility] Comment on above: Performed By: #### B HCG, CDP, PT, TSHX, PTT #### [facility] [address] [place] [address] Vat Tender: Pierre Cowart DO #### E2, FSH, LH #### [address] [address] Vat Tender: Robert Neri MD Performed By: #### T SHX, PTT, BHCG, CDP, PT #### [facility] [address] [place] [address] Vat Tender: Pierre Cowart DO #### E2, FSH, LH #### [address] [address] Vat Tender: Robert Neri MD Platelet mean volume (Bld) [Entitic vol] 10.3 fL Normal 6.0-12.0 [facility] Comment on above: Performed By: #### B HCG, CDP, PT, TSHX, PTT #### [facility] [address] [place] [address] Vat Tender: Pierre Cowart DO #### E2, FSH, LH #### [address] [address] Vat Tender: Robert Neri MD Performed By: #### T SHX, PTT, BHCG, CDP, PT #### [facility] [address] [place] [address] Vat Tender: Pierre Cowart DO #### E2, FSH, LH #### [address] [address] Vat Tender: Robert Neri MD Platelets (Bld) [#/Vol] 226 10*3/uL Normal 150-450 [facility] Comment on above: Performed By: #### B HCG, CDP, PT, TSHX, PTT #### [facility] [address] [place] [address] Vat Tender: Pierre Cowart DO #### E2, FSH, LH #### [address] [address] Vat Tender: Robert Neri MD Performed By: #### T SHX, PTT, BHCG, CDP, PT #### [facility] [address] [place] [address] Vat Tender: Pierre Cowart DO #### E2, FSH, LH #### [address] [address] Vat Tender: Robert Neri MD RBC (Bld) [#/Vol] 5.06 10*6/uL Normal 4.0-5.2 [facility] Comment on above: Performed By: #### B HCG, CDP, PT, TSHX, PTT #### [facility] [address] [place] [address] Vat Tender: Pierre Cowart DO #### E2, FSH, LH #### [address] [address] Vat Tender: Robert Neri MD Performed By: #### T SHX, PTT, BHCG, CDP, PT #### [facility] [address] [place] [address] Vat Tender: Pierre Cowart DO #### E2, FSH, LH #### [address] [address] Vat Tender: Robert Neri MD WBC (Bld) [#/Vol] 9.7 10*3/uL Normal 3.5-11.0 [facility] Comment on above: Performed By: #### B HCG, CDP, PT, TSHX, PTT #### [facility] [address] [place] [address] Vat Tender: Pierre Cowart DO #### E2, FSH, LH #### [address] [address] Vat Tender: Robert Neri MD Performed By: #### T SHX, PTT, BHCG, CDP, PT #### [facility] [address] [place] [address] Vat Tender: Pierre Cowart DO #### E2, FSH, LH #### [address] [address] Vat Tender: Robert Neri MD Estradiolon 07-14-2023 Estradiol 107.0 pg/mL Normal [facility] Comment on above: Result Comment: FEMALES: Normally menstruating Luteal phase 60-232 Follicular phase 31-90 Midcycle phase 60-533 Postmenopausal (untreated) <138 Fulvestrant treatment will show an increased estradiol concentration with this methodology. Alternate methodologies are available upon request. Performed By: #### B HCG, CDP, PT, TSHX, PTT #### [facility] [address] [place] [address] Vat Tender: Pierre Cowart DO #### E2, FSH, LH #### [facility] [employer] [address] [place] [address] Vat Tender: Robert Neri MD Performed By: #### T SHX, PTT, BHCG, CDP, PT #### [facility] [address] [place] [address] Vat Tender: Pierre Cowart DO #### E2, FSH, LH #### [facility] [employer] [address] [place] [address] Vat Tender: Robert Neri MD Follicle Stim. Hormon 2022 Follicle Stim. Horm 7.7 mIU/mL Normal [facility] Comment on above: Result Comment: Refe rence Range: Male: 1.5-12.4 Ovulating Female: Follicular Phase 3.5-12.5 Ovulation Phase 4.7-21.5 Luteal Phase 1.7-7.7 Postmenopausal Female: 25.8-134.8 Performed By: #### B HCG, CDP, PT, TSHX, PTT #### [facility] [address] [place] [address] Vat Tender: Pierre Cowart DO #### E2, FSH, LH #### [facility] [address] [place] [address] Vat Tender: Robert Neri MD Performed By: #### T SHX, PTT, BHCG, CDP, PT #### [facility] [address] [place] [address] Vat Tender: Pierre Cowart DO #### E2, FSH, LH #### [address] [address] Vat Tender: Robert Neri MD HCG, Quanton 07-14-2023 HCG, Quant <1.0 Normal <5 [facility] Comment on above: Result Comment: Non-preg premeno <=5 Postmeno <=8 Male <=3 If HCG results do not concur with clinical observations, additional testing to confirm results is recommended. Performed By: #### B HCG, CDP, PT, TSHX, PTT #### [facility] [address] [place] [address] Vat Tender: Pierre Cowart DO #### E2, FSH, LH #### [address] [address] Vat Tender: Robert Neri MD Performed By: #### T SHX, PTT, BHCG, CDP, PT #### [facility] [address] [place] [address] Vat Tender: Pierre Cowart DO #### E2, FSH, LH #### [address] [address] Vat Tender: Robert Neri MD Luteinizing Hormoneon 2 Luteinizing Hormone 7.0 mIU/mL Normal 1.7-8.6 [facility] Comment on above: Result Comment: Refe rence Range: Male: 1.7-8.6 Ovulating Female: Follicular Phase 2.4-12.6 Ovulation Phase 14.0-95.6 Luteal Phase 1.0-11.4 Postmenopausal Female: 7.7-58.5 Performed By: #### B HCG, CDP, PT, TSHX, PTT #### [facility] [address] [place] [address] Vat Tender: Pierre Cowart DO #### E2, FSH, LH #### [address] [address] Vat Tender: Robert Neri MD Performed By: #### T SHX, PTT, BHCG, CDP, PT #### [facility] [address] [place] [address] Vat Tender: Pierre Cowart DO #### E2, FSH, LH #### [address] [address] Vat Tender: Robert Neri MD PTon 07-14-2023 INR Coag (PPP) [Relative time] 1.0 {INR} Normal [facility] Comment on above: Result Comment: Therapeutic Range: Moderate Anticoagulant Intensity: INR = 2.0-3.0 High Anticoagulant Intensity: INR = 2.5-3.5 Performed By: #### B HCG, CDP, PT, TSHX, PTT #### [facility] [place] [address] Vat Tender: Pierre Cowart DO #### E2, FSH, LH #### [address] [address] Vat Tender: Robert Neri MD Performed By: #### T SHX, PTT, BHCG, CDP, PT #### [facility] [address] [place] [address] Vat Tender: Pierre Cowart DO #### E2, FSH, LH #### [address] [address] Vat Tender: Robert Neri MD PT Coag (PPP) [Time] 13.6 s Normal 11.8-14.6 [facility] Comment on above: Performed By: #### B HCG, CDP, PT, TSHX, PTT #### [facility] [address] [facility] [place] [address] Vat Tender: Pierre Cowart DO #### E2, FSH, LH #### [address] [address] Vat Tender: Robert Neri MD Performed By: #### T SHX, PTT, BHCG, CDP, PT #### [facility] [address] [place] [address]. [place] [address] Vat Tender: Pierre Cowart DO #### E2, FSH, LH #### [address] [address] Vat Tender: Robert Neri MD TSH w/reflex to FT4on 2022 Thyroid Stim. Horm. 3.02 uIU/mL Normal 0.30-5.00 [facility] Comment on above: Performed By: #### B HCG, CDP, PT, TSHX, PTT #### [facility] [address] [place] [address]. [place] [address] Vat Tender: Pierre Cowart DO #### E2, FSH, LH #### [address] [address] Vat Tender: Robert Neri MD Performed By: #### T SHX, PTT, BHCG, CDP, PT #### [facility] [address] [place] [address] Vat Tender: Pierre Cowart DO #### E2, FSH, LH #### [address] [address] Vat Tender: Robert Neri MD US PELVIS COMPLETEon 023 US PELVIS COMPLETE Table formatting from the original result was not included. GYNECOLOGY ULTRASOUND REPORT [facility] Obstetrics AND Gynecology [facility]; [address] [place] [address] mn Fax 07/14/2023 Contact Serial #: [id number] Kiera Landaverde Date of : 1980 Age: 42 y.o. The ultrasound images were reviewed. Please see the attached ultrasound report. Safety Spec: Demetria Anthony RDMS Assessment: Kiera Landaverde is a 42 y.o. female 1. Irregular menses Specific Ultrasound Imaging Obtained: Transabdominal Approach: Yes Transvaginal Approach: Yes Limitations of Study Encountered requiring Trans Vaginal imaging: Overlying bowel AND gas limiting the study: No Poor prep for procedure limiting study: Yes Elevated BMI limiting study: No Ovaries are NOT seen on Transabdominal imaging, required to better visualize structures, or a retroverted uterus is present. No Impressions: 1. The Uterus is heterogeneous and anteverted (7.71 x 4.37 x 3.59 cm) 2. The Endometrial Stripe measurement is 0.49 cm 3. The Left Ovary has a less than 3 cm cystic structure. This may be paraovarian in nature. Difficult to visualize 4. The Right Ovary is without masses or cysts 5. There is not an abnormal amount of cul-de-sac fluid Recommendations: 1. Gynecologic Physician follow up appointment 2. Consider 8-12 week follow up Transvaginal imaging vs MR imaging of pelvis if persistent at follow up imaging study. Interpreted by: Ousmane Soto DO Signed by: Ousmane Soto DO 07/14/23 Final result Normal [facility] HPV DNA High Riskon 05-28-20 23 HPV Interp Normal [facility] Comment on above: Result Comment: This test amplifies and detects DNA of 14 high-risk HPV types associated with cervical cancer and its precursor lesions (HPV types 16,18, 31, 33, 35, 39, 45, 51, 52, 56, 58, 59, 66, and 68). Sensitivity may be affected by specimen collection methods, stage of infection, and the presence of interfering substances. Results should be interpreted in conjunction with other available laboratory and clinical data. A negative high-risk HPV result does not exclude the possibility of future cytologic HSIL or underlying CIN2-3 or cancer. This test is intended for medical purposes only and is not valid for the evaluation of suspected sexual abuse or for other forensic purposes. Performed By: #### H PVH #### [address] [address] Vat Tender: Robert Neri MD HPV Type 16 Not detected Normal [facility] Comment on above: Performed By: #### H PVH #### [address] [address] Vat Tender: Robert Neri MD HPV Type 18 Not detected Normal [facility] Comment on above: Performed By: #### H PVH #### [address] [address] Vat Tender: Robert Neri MD Other High Risk HPV Not detected Normal [facility] Comment on above: Performed By: #### H PVH #### [address] [address] Vat Tender: Robert Neri MD HPV DNA High Riskon 05-27-20 23 HPV Sample .THIN PREP Normal [facility] Comment on above: Performed By: #### H PVH #### [address] [address] Vat Tender: Robert Neri MD Source CERVICAL MATERIAL Normal [facility] Comment on above: Performed By: #### H PVH #### [address] [address] Vat Tender: Robert Neri MD Cytology Reporton 05-26-2023 Cytology report Cyto stain.thin prep Doc (Cvx/Vag) (NOTE) Path Number: [id number] DIAGNOSIS Imaged ThinPrep Pap - Cervical (1 monolayer slide): Specimen Adequacy: Satisfactory for evaluation. - Endocervical/transf ormation zone component present. Descriptive Diagnosis: Negative for intraepithelial lesion or malignancy. [employer] Screener: EY Electronically Signed Out Ambar REYES(ASCP) ey/06/04/2023 Procedure/Addendum HPV Procedure Report Date Ordered: 05/27/2023 Status: Signed Out Date Complete: 05/28/2023 By: System Interface Date Reported: 05/28/2023 Sample: HPV Type 16 Result: Not Detected Ref Range: (Not Detected) Sample: HPV Type 18 Result: Not Detected Ref Range: (Not Detected) Sample: Other High Risk HPV Result: Not Detected Ref Range: (Not Detected) Sample: HPV Interp Result: Ref Range: (Not Detected) This test amplifies and detects DNA of 14 high-risk HPV types associated with cervical cancer and its precursor lesions (HPV types 16,18, 31, 33, 35, 39, 45, 51, 52, 56, 58, 59, 66, and 68). Sensitivity may be affected by specimen collection methods, stage of infection, and the presence of interfering substances. Results should be interpreted in conjunction with other available laboratory and clinical data. A negative high-risk HPV result does not exclude the possibility of future cytologic HSIL or underlying CIN2-3 or cancer. This test is intended for medical purposes only and is not valid for the evaluation of suspected sexual abuse or for other forensic purposes. Performed at [facility], [address] [place], [place] [id number] . Source of Specimen: A: Imaged ThinPrep Pap - Cervical (1 monolayer slide) HPV Reflex?............ 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 The Pap smear is a screening test primarily for squamous epithelial lesions, which is subject to both false negative and false positive results. Your patient should be reminded to consult you immediately if she experiences any suspicious signs or symptoms, regardless of her Pap smear result. GYNECOLOGIC CYTOLOGY REPORT Patient Name: KIERA LANDAVERDE [facility] Rec: [id number] [facility] [employer] [facility] ANATOMIC PATHOLOGY [address] [place] [id number] Normal [facility] IRAM DIGITAL SCREEN SELF REFERRAL W OR WO CAD BILATERALon 05-02-2023 [facility] IRAM DIGITAL SCREEN SELF REFERRAL W OR WO CAD BILATERAL EXAMINATION: SCREENING DIGITAL BILATERAL MAMMOGRAM WITH TOMOSYNTHESIS, 04/30/2023 TECHNIQUE: Screening mammography of the bilateral breasts was performed with tomosynthesis. 2D standard and 3D tomosynthesis combination imaging performed through both breasts in the MLO and CC projection. Computer aided detection was utilized in the interpretation of this exam. COMPARISON: Outside mammography dated 06/20/2021 and 03/10/2020 HISTORY: Screening. FINDINGS: The breast tissue is composed of scattered fibroglandular tissue. There is no suspicious mass, suspicious microcalcification, or area of architectural distortion. IMPRESSION: No mammographic evidence of malignancy. BI-RADS 1 BIRADS: BIRADS - CATEGORY 1 Negative, no evidence of malignancy. Normal interval follow-up is recommended in 12 months. OVERALL ASSESSMENT - NEGATIVE A letter of notification will be sent to the patient regarding the results. The [employer] recommends annual mammograms for women 40 years and older. Interpreted by: Josh Mitchell MD Signed by: Josh Mitchell MD 05/02/23 Final result Normal [facility] No mammographic evidence of malignancy. BI-RADS 1 BIRADS: BIRADS - CATEGORY 1 Negative, no evidence of malignancy. Normal interval follow-up is recommended in 12 months. OVERALL ASSESSMENT - NEGATIVE A letter of notification will be sent to the patient regarding the results. The [employer] recommends annual mammograms for women 40 years and older. [facility] RIS CONSOLIDATED EXAMINATION: SCREENING DIGITAL BILATERAL MAMMOGRAM WITH TOMOSYNTHESIS, 04/30/2023 TECHNIQUE: Screening mammography of the bilateral breasts was performed with tomosynthesis. 2D standard and 3D tomosynthesis combination imaging performed through both breasts in the MLO and CC projection. Computer aided detection was utilized in the interpretation of this exam. COMPARISON: Outside mammography dated 06/20/2021 and 03/10/2020 HISTORY: Screening. FINDINGS: The breast tissue is composed of scattered fibroglandular tissue. There is no suspicious mass, suspicious microcalcification, or area of architectural distortion. [facility] RIS CONSOLIDATED [facility] IRAM DIGITAL SCREEN SELF REFERRAL W OR WO CAD BILATERALOrdered By: Josh Mitchell on 05-02-2023 [employer] Work Phone: [facility] IRAM DIGITAL SCREEN SELF REFERRAL W OR WO CAD BILATERALon 04-30-2023 Radiology Study observation (narrative) [facility] Basophils Auto (Bld) [#/Vol] Ordered By: Jose Carpio on 09-12-2022 Basophils (Bld) [#/Vol] 0.1 10*3/uL 0.0-0.2 [facility] Basophils/100 WBC Auto (Bld) Ordered By: Jose Carpio on 09-12-2022 Basophils/100 WBC (Bld) 0.8 % . F [facility] Body fluid albumin measureme nt (mass/volume)Ordered By: Jose Carpio on 09-12-2022 Albumin (Body fld) [Mass/Vol] 3.5 g/dL 3.2-5.5 [facility] Creatinine and Glomerular fi ltration rate.predicted panel (S/P/Bld)Ordered By: Jose Carpio on 09-12-2022 Creatinine [Mass/Vol] 0.80 mg/dL 0.44-1.03 [facility] Eosinophils Auto (Bld) [#/Vo l]Ordered By: Jose Carpio on 09-12-2022 Eosinophils (Bld) [#/Vol] 0.2 10*3/uL 0.0-0.45 [facility] Eosinophils/100 WBC Auto (Bl d)Ordered By: Jose Carpio on 09-12-2022 Eosinophils/100 WBC (Bld) 1.5 % . [facility] Erythrocyte distribution wid th Auto (RBC) [Ratio]Ordered By: Jose Carpio on 09-12-2022 Erythrocyte distribution width (RBC) [Ratio] 14.7 % 11.9-15.3 [facility] Estimated glomerular filtrat ion rate (GFR) non- AmericanOrdered By: Jose Carpio on 09-12-2022 GFR/1.73 sq M.predicted among non-blacks MDRD (S/P/Bld) [Vol rate/Area] > 60 mL/Min [facility] Globulin Calc (S) [Mass/Vol] Ordered By: Jose Carpio on 09-12-2022 Globulin (S) [Mass/Vol] 2.2 g/dL F [facility] Hematocrit Auto (Bld) [Volum e fraction]Ordered By: Jose Carpio on 09-12-2022 Hematocrit (Bld) [Volume fraction] 42.2 % 34.0-46.4 [facility] Hemoglobin [Mass/volume] in BloodOrdered By: Jose Carpio on 09-12-2022 Hemoglobin (Bld) [Mass/Vol] 13.7 g/dL 11.8-15.4 [facility] Leukocytes [#/volume] correc carlos enrique for nucleated erythrocytes in Blood by Automated counOrdered By: Jose Carpio on 09-12-2022 WBC corrected for nucl RBC Auto (Bld) [#/Vol] 11.0 10*3/uL 3.8-11.6 [facility] Lymphocytes Auto (Bld) [#/Vo l]Ordered By: Jose Carpio on 09-12-2022 Lymphocytes (Bld) [#/Vol] 2.6 10*3/uL 1.00-4.8 [facility] Lymphocytes/100 WBC Auto (Bl d)Ordered By: Jose Carpio on 09-12-2022 Lymphocytes/100 WBC (Bld) 23.5 % . [facility] MCH Auto (RBC) [Entitic mass ]Ordered By: Jose Carpio on 09-12-2022 MCH (RBC) [Entitic mass] 27.3 pg 24.7-34.3 [facility] MCHC Auto (RBC) [Mass/Vol]Or dered By: Jose Carpio on 09-12-2022 MCHC (RBC) [Mass/Vol] 32.5 g/dL 32.0-35.0 [facility] MCV Auto (RBC) [Entitic vol] Ordered By: Jose aCrpio on 09-12-2022 MCV (RBC) [Entitic vol] 84.2 fL 80-100 F [facility] Monocyte distribution width [Entitic volume] in Blood by AutomatedOrdered By: Jose Carpio on 09-12-2022 Monocyte distribution width Auto (Bld) [Entitic vol] 17.69 % 0.00-20.00 [facility] Monocytes Auto (Bld) [#/Vol] Ordered By: Jose Carpio on 09-12-2022 Monocytes (Bld) [#/Vol] 1.0 10*3/uL 0.0-0.8 [facility] Monocytes/100 WBC Auto (Bld) Ordered By: Jose Carpio on 09-12-2022 Monocytes/100 WBC (Bld) 9.2 % . F [facility] Neutrophils Auto (Bld) [#/Vo l]Ordered By: Jose Carpio on 09-12-2022 Neutrophils (Bld) [#/Vol] 7.1 10*3/uL 1.8-7.7 [facility] Neutrophils/100 WBC Auto (Bl d)Ordered By: Jose Carpio on 09-12-2022 Neutrophils/100 WBC (Bld) 65.0 % . [facility] No Panel InformationOrdered By: Jose Carpio on 09-12-2022 Estimated GFR () > 60 mL/Min [facility] Comment on above: GFR estimated refere nce range: According to KDOQI guidelines, <60 ml/min/1.73m2 is sufficient to diagnose a patient with chronic kidney disease. Pharmacy Creatinine Clearance (Chem 89.78 [facility] Nucleated erythrocytes [Pres ence] in Blood by Automated countOrdered By: Jose Carpio on 09-12-2022 Nucleated RBC Auto Ql (Bld) 0.2 /100{WBC} 0-0.5 [facility] Platelet mean volume Auto (B ld) [Entitic vol]Ordered By: Jose Carpio on 09-12-2022 Platelet mean volume (Bld) [Entitic vol] 10.3 fL 6.3-10.7 [facility] Platelets Auto (Bld) [#/Vol] Ordered By: Jose Carpio on 09-12-2022 Platelets (Bld) [#/Vol] 237 10*3/uL 150-450 [facility] Protein [Mass/volume] in Ser um or PlasmaOrdered By: Jose Carpio on 09-12-2022 Protein [Mass/Vol] 5.7 g/dL 6.1-7.9 [facility] RBC Auto (Bld) [#/Vol]Ordere d By: Jose Carpio on 09-12-2022 RBC (Bld) [#/Vol] 5.01 10*6/uL 3.60-5.00 [facility] Serum or plasma alanine enriquez otransferase measurement without P-5'-P (enzymatic activiOrdered By: Jose Carpio on 09-12-2022 ALT No additional P-5'-P [Catalytic activity/Vol] 20 U/L 10-60 [facility] Serum or plasma albumin/glob ulin mass ratioOrdered By: Jose Carpio on 09-12-2022 Albumin/Globulin [Mass ratio] 1.6 {ratio} [facility] Serum or plasma alkaline radha sphatase measurement (enzymatic activity/volume)Ordered By: Jose Carpio on 09-12-2022 ALP [Catalytic activity/Vol] 69 U/L 32-92 [facility] Serum or plasma anion gap de terminationOrdered By: Jose Carpio on 09-12-2022 Anion gap [Moles/Vol] 11.2 mmol/L 6.0-15.0 [facility] Serum or plasma aspartate am inotransferase measurement (enzymatic activity/volume)Ordered By: Jose Carpio on 09-12-2022 AST [Catalytic activity/Vol] 14 U/L 10-42 [facility] Serum or plasma calcium bouchra urement (mass/volume)Ordered By: Jose Carpio on 09-12-2022 Calcium [Mass/Vol] 8.9 mg/dL 8.2-10.2 [facility] Serum or plasma chloride seferino surement (moles/volume)Ordered By: Jose Carpio on 09-12-2022 Chloride [Moles/Vol] 103 mmol/L 95-114 [facility] Serum or plasma ethanol bouchra urement (mass/volume)Ordered By: Jose Carpio on 09-12-2022 Ethanol [Mass/Vol] mg/dL [facility] Ethanol [Mass/Vol] TNP [facility] Comment on above: Test not performed Serum or plasma glucose bouchra urement (mass/volume)Ordered By: Jose Carpio on 09-12-2022 Glucose [Mass/Vol] 134 mg/dL 70-100 [facility] Comment on above: ADA recommended refe rence rangeRandom Glucose Reference Range is dependent on time and content of last meal. Glucose of more than 200 mg/dL in a nonstressed, ambulatory subject supports the diagnosis of Diabetes Mellitus. Serum or plasma potassium me asurement (moles/volume)Ordered By: Jose Carpio on 09-12-2022 Potassium [Moles/Vol] 3.7 mmol/L 3.5-5.1 [facility] Serum or plasma sodium measu rement (moles/volume)Ordered By: Jose Carpio on 09-12-2022 Sodium [Moles/Vol] 137 mmol/L 136-146 [facility] Serum or plasma total biliru bin measurement (mass/volume)Ordered By: Jose Carpio on 09-12-2022 Bilirubin [Mass/Vol] 0.2 mg/dL 0.3-1.2 [facility] Serum or plasma total carbon dioxide measurement (moles/volume)Ordered By: Jose Carpio on 09-12-2022 CO2 [Moles/Vol] 26.5 mmol/L 22.0-30.0 [facility] Serum or plasma urea nitroge n measurement (mass/volume)Ordered By: Jose Carpio on 09-12-2022 Urea nitrogen [Mass/Vol] 6 mg/dL 9-23 [facility] WBC Auto (Bld) [#/Vol]Ordere d By: Jose Carpio on 09-12-2022 WBC (Bld) [#/Vol] 11.0 10*3/uL 3.8-11.6 [facility] AMYLASEon 05-18-2022 Amylase [Catalytic activity/Vol] 44 U/L Normal 25-115 [facility] Comment on above: Performed By: #### C MP, LIPA, CMADM, JHONY #### [facility] [address] [address] [address] Desean Ward CARDIAC HELEN ADMITon 022 CK [Catalytic activity/Vol] 51 U/L Normal 26-192 [facility] Comment on above: Performed By: #### C MP, LIPA, CMADM, JHONY #### [facility] [address] [place] [address] Dr. Desean Ward CK.MB [Mass/Vol] 1.15 ng/mL Normal <=3.60 [facility] Comment on above: Performed By: #### C MP, LIPA, CMADM, JHONY #### [facility] [address] [place] [address] Dr. Desean Ward HSTROP <4.0 Normal 4.0-51.3 [facility] Comment on above: Result Comment: CUT- OFF POINTS HAVE BEEN ESTABLISHED BASED ON THE FOURTH UNIVERSAL DEFINITIONS OF MYOCARDIAL INFARCTION. THE UPPER REFERENCE LIMIT (URL) OF TROPONIN, DEFINED THE 99TH PERCENTILE OF cTnI DISTRIBUTION IN A REFERENCE POPULATION, HAS BEEN CONFIRMED THE DECISION THRESHOLD FOR [place] DIAGNOSIS. Performed By: #### C MP, LIPA, CMADM, JHONY #### [facility] [address] [place] [address] Dr. Desean Ward ESTEFANY 38 ng/mL Normal 9-82 [facility] Comment on above: Performed By: #### C MP, LIPA, CMADM, JHONY #### [facility] [address] [place] [address] Dr. Desean Ward CBC AUTO DIFFon 05-18-2022 BASO # 0.1 103/ul Normal 0.0-0.1 [facility] Comment on above: Performed By: #### C BC #### [facility] [address] [place] [address] Dr. Desean Ward Basophils/100 WBC (Bld) 0.8 % Normal 0.2-2.0 [facility] Comment on above: Performed By: #### C BC #### [facility] [address] [place] [address] Dr. Desean Ward EO # 0.2 103/ul Normal 0.0-0.7 [facility] Comment on above: Performed By: #### C BC #### [facility] [address] [place] [address] Dr. Desean Ward Eosinophils/100 WBC (Bld) 1.8 % Normal 0.9-7.0 [facility] Comment on above: Performed By: #### C BC #### [facility] [address] [place] [address] Dr. Desean Ward Erythrocyte distribution width (RBC) [Ratio] 14.3 % Normal 11.0-15.0 [facility] Comment on above: Performed By: #### C BC #### [facility] [address] [place] [address] Dr. Desean Ward Hematocrit (Bld) [Volume fraction] 43.5 % Normal 36.0-48.0 [facility] Comment on above: Performed By: #### C BC #### [facility] [address] [place] [address] Dr. Desean Ward Hemoglobin (Bld) [Mass/Vol] 13.8 g/dL Normal 12.0-16.0 [facility] Comment on above: Performed By: #### C BC #### [facility] [address] [place] [address] Dr. Desean Ward IG # 0.04 10e3/ul Critically high 0.00-0.03 [facility] Comment on above: Performed By: #### C BC #### [facility] [address] [place] [address] Dr. Desean Ward IG % 0.3 % Normal 0.0-0.5 [facility] Comment on above: Performed By: #### C BC #### [facility] [address] [place] [address] Dr. Desean Ward LYMPH # 3.2 103/ul Normal 1.2-3.8 [facility] Comment on above: Performed By: #### C BC #### [facility] [address] [place] [address] Dr. Desean Ward Lymphocytes/100 WBC (Bld) 24.5 % Normal 20.5-60.0 [facility] Comment on above: Performed By: #### C BC #### [facility] [address] [place] [address] Dr. Desean Ward MANUAL DIFF REQ NO Normal [facility] Comment on above: Performed By: #### C BC #### [facility] [address] [place] [address] Dr. Desean Ward MCH (RBC) [Entitic mass] 27.3 pg Normal 26.7-34.0 [facility] Comment on above: Performed By: #### C BC #### [facility] [address] [place] [address] Dr. Desean Ward MCHC (RBC) [Mass/Vol] 31.7 g/dL Normal 29.9-35.2 [facility] Comment on above: Performed By: #### C BC #### [facility] [address] [place] [address] Dr. Desean Ward MCV (RBC) [Entitic vol] 86.1 fL Normal 81.0-99.0 [facility] Comment on above: Performed By: #### C BC #### [facility] [address] [place] [address] Dr. Desean Ward MONO # 1.1 103/ul Critically high 0.3-0.8 [facility] Comment on above: Performed By: #### C BC #### [facility] [address] [place] [address] Dr. Desean Ward Monocytes/100 WBC (Bld) 8.6 % Normal 1.7-12.0 [facility] Comment on above: Performed By: #### C BC #### [facility] [address] [place] [address] Dr. Desean Ward NEUT # 8.5 103/ul Critically high 1.4-6.5 [facility] Comment on above: Performed By: #### C BC #### [facility] [address] [place] [address] Dr. Desean Ward Neutrophils/100 WBC (Bld) 64.0 % Normal 43.0-75.0 [facility] Comment on above: Performed By: #### C BC #### [facility] [address] [place] [address] Dr. Desean Ward Platelet mean volume (Bld) [Entitic vol] 11.3 fL Normal 9.5-13.5 [facility] Comment on above: Performed By: #### C BC #### [facility] [address] [place] [address] Dr. Desean Ward PLT 294 103/ul Normal 150-450 [facility] Comment on above: Performed By: #### C BC #### [facility] [address] [place] [address] Dr. Desean Ward RBC 5.05 106/ul Normal 4.20-5.40 [facility] Comment on above: Performed By: #### C BC #### [facility] [address] [place] [address] Dr. Desean Ward WBC 13.2 103/ul Critically high 4.0-11.0 [facility] Comment on above: Performed By: #### C BC #### [facility] [address] [place] [address] ABD/PELV W CONon 05-18-20 CT ABD/PELV W CON CT ABDOMEN AND PELVIS WITH CONTRAST: INDICATION: GENERALIZED ABDOMINAL PAIN. COMPARISON: None. TECHNIQUE: Helical CT images of the abdomen and pelvis were obtained after the administration of intravenous contrast. Dose reduction techniques were achieved by using automated exposure control and/or adjustment of mA and/or kV according to patient size and/or use of iterative reconstruction technique. FINDINGS: LOWER CHEST: Normal. LIVER: Normal in size and attenuation. No focal lesions. GALLBLADDER AND BILIARY SYSTEM: Status-post cholecystectomy. SPLEEN: Normal. PANCREAS: Normal. ADRENAL GLANDS: Normal. KIDNEYS AND URETERS: Normal. VASCULATURE: Normal. RETROPERITONEUM AND LYMPH NODES: Normal, with no lymphadenopathy. GASTROINTESTINAL TRACT/MESENTERY: The bowel loops are normal in caliber. There is moderate submucosal fat throughout the colon. Normal appendix. BLADDER: Normal. REPRODUCTIVE SYSTEM: There are several cystic lesions in the cervix suggestive of nabothian cysts which measure up to 16 mm. There are bilateral adnexal cystic lesions measuring 2.5 cm and 1.2 cm on the left and 2.3 cm, and 0.9 cm on the right. These are likely physiologic ovarian cysts. There is an arcuate uterus configuration. BODY WALL: Normal. BONES: There is bilateral spondylolysis at L5. No spondylolisthesis. There is no acute osseous abnormality. IMPRESSION: 1. No acute process in the abdomen or pelvis. 2. Prominent submucosal fat in the colon which can be seen as a normal variant as well as with chronic colitis. 3. Bilateral adnexal cysts, likely physiologic ovarian cysts. Nabothian cysts are also visualized in the cervix. 4. Bilateral spondylolysis at L5. Electronically authenticated by: MARK OROZCO Date: 2022-05-18 00:06 Normal The [facility] D-DIMERon 05-18-2022 D-DIMER 0.47 mg/L FEU Normal <=0.59 The [facility] Comment on above: Performed By: #### D DIM #### [facility] [address] [place] [address] Dr. Desean Ward D-DIMER COMMENTS SEE BELOW Normal [facility] Comment on above: Result Comment: Incr eases in D-Dimer concentration observed with thromboembolic events can be variable due to localization, size, and age of the thrombus. Therefore, a thromboembolic event cannot be diagnosed with certainty on the basis of the reference range. D-Dimers may also be elevated for a variety of disorders including: advanced age, , coronary disease, cancer, liver disease, infection, inflammation, hematoma, DIC, trauma, post-surgery, diabetes, thrombolytic or anticoagulant therapy, stress, and generalized hospitalization. Performed By: #### D DIM #### [facility] [address] [address] [address] Desean Ward ER URINE PROFILEon 2 Bilirubin Ql (U) Negative Normal NEGATIVE [facility] Comment on above: Performed By: #### E RUR, PREGU #### [facility] [address] [address] [address] Desean Ward Clarity (U) CLEAR Normal CLEAR [facility] Comment on above: Performed By: #### E RUR, PREGU #### [facility] [address] [place] [address] Dr. Desean Ward Color (U) LT. YELLOW Normal YELLOW [facility] Comment on above: Performed By: #### E RUR, PREGU #### [facility] [address] [address] [address] Desean NEVAREZ A micrscopic examination will be performed if indicated. Normal [facility] Comment on above: Performed By: #### E RUR, PREGU #### [facility] [address] [address] [address] Desean Ward Glucose Ql (U) Negative Normal NEGATIVE The [facility] Comment on above: Performed By: #### E RUR, PREGU #### [facility] [address] [place] [address] Dr. Desean Ward Hemoglobin Ql (U) Negative Normal NEGATIVE [facility] Comment on above: Performed By: #### E RUR, PREGU #### [facility] [address] [place] [address] Dr. Desean Ward Ketones Ql (U) Negative Normal NEGATIVE [facility] Comment on above: Performed By: #### E RUR, PREGU #### [facility] [address] [place] [address] Dr. Desean Ward LEUKOCYTES Negative Normal NEGATIVE [facility] Comment on above: Performed By: #### E RUR, PREGU #### [facility] [address] [place] [address] Dr. Desean Ward Nitrite Ql (U) Negative Normal NEGATIVE [facility] Comment on above: Performed By: #### E RUR, PREGU #### [facility] [address] [place] [address] Dr. Desean Ward pH (U) 6.0 [pH] Normal 5-9 [facility] Comment on above: Performed By: #### E RUR, PREGU #### [facility] [address] [address] [address] Desean Ward SPEC GRAVITY <=1.005 Abnormal 1.005-<=1.02 5 [facility] Comment on above: Performed By: #### E RUR, PREGU #### [facility] [address] [place] [address] Dr. Desean Ward UA PROTEIN Negative Normal NEGATIVE/ TRACE [facility] Comment on above: Performed By: #### E RUR, PREGU #### [facility] [address] [place] [address] Dr. Desean Ward UR MICRO IND NOT INDICATED Normal The [facility] Comment on above: Performed By: #### E TAYLAR, PREGU #### [facility] [address] [place] [address] Dr. Desean Ward Urobilinogen Qn (U) 1.0 {Saul'U}/dL Normal 0.2 - 1. 0 [facility] Comment on above: Performed By: #### E TAYLAR, PREGU #### [facility] [address] [place] [address] Dr. Desean Ward LIPASEon 05-18-2022 Lipase [Catalytic activity/Vol] 109.0 U/L Normal 73.0-393.0 [facility] Comment on above: Performed By: #### C MP, LIPA, CMADM, JHONY #### [facility] [address] [place] [address] Dr. Desean Ward URon 05-18-2022 , QUAL Negative Normal NEGATIVE The [facility] Comment on above: Performed By: #### Jena GORMAN, PREGU #### [facility] [address] [place] [address] Dr. Desean Ward PROF 14(COMP METB)on 022 Albumin [Mass/Vol] 3.6 g/dL Normal 3.4-5.0 [facility] Comment on above: Performed By: #### C MP, LIPA, CMADM, JHONY #### [facility] [address] [place] [address] Dr. Desean Ward Albumin/Globulin [Mass ratio] 1.1 {ratio} Normal [facility] Comment on above: Performed By: #### C MP, LIPA, CMADM, JHONY #### [facility] [address] [place] [address] Dr. Desean Ward ALP [Catalytic activity/Vol] 89 U/L Normal 46-116 [facility] Comment on above: Performed By: #### C MP, LIPA, CMADM, JHONY #### [facility] [address] [place] [address] Dr. Desean Ward ALT [Catalytic activity/Vol] 45 U/L Normal 14-59 [facility] Comment on above: Performed By: #### C MP, LIPA, CMADM, JHONY #### [facility] [address] [place] [address] Dr. Desean Ward Anion gap [Moles/Vol] 8.5 mmol/L Normal [facility] Comment on above: Performed By: #### C MP, LIPA, CMADM, JHONY #### [facility] [address] [place] [address] Dr. Desean Ward AST [Catalytic activity/Vol] 14 U/L Critically low 15-37 [facility] Comment on above: Performed By: #### C MP, LIPA, CMADM, JHONY #### [facility] [address] [place] [address] Dr. Desean Ward Bilirubin [Mass/Vol] 0.4 mg/dL Normal 0.2-1.0 [facility] Comment on above: Performed By: #### C MP, LIPA, CMADM, JHONY #### [facility] [address] [place] [address] Dr. Desean Ward Calcium [Mass/Vol] 8.7 mg/dL Normal 8.5-10.1 [facility] Comment on above: Performed By: #### C MP, LIPA, CMADM, JHONY #### [facility] [address] [address] [address] Desean Ward Chloride [Moles/Vol] 98 mmol/L Normal 98-107 [facility] Comment on above: Performed By: #### C MP, LIPA, CMADM, JHONY #### [facility] [address] [place] [address] Dr. Desean Ward CO2 [Moles/Vol] 28.9 mmol/L Normal 21.0-32.0 [facility] Comment on above: Performed By: #### C MP, LIPA, CMADM, JHONY #### [facility] [address] [place], [place] [id number] Dr. Desean Ward Creatinine [Mass/Vol] 0.83 mg/dL Normal 0.55-1.02 [facility] Comment on above: Performed By: #### C MP, LIPA, CMADM, JHONY #### [facility] [address] [address] [address] Desean Ward EGFR-AF FILIPINO >60 Normal >=60 [facility] Comment on above: Performed By: #### C MP, LIPA, CMADM, JHONY #### [facility] [address] [address] [address] Desean Ward EGFR-NON AF FILIPINO >60 Normal >=60 [facility] Comment on above: Performed By: #### C MP, LIPA, CMADM, JHONY #### [facility] [address] [place] [address] Dr. Desean Ward Globulin (S) [Mass/Vol] 3.2 g/dL Normal T [facility] Comment on above: Performed By: #### C MP, LIPA, CMADM, JHONY #### [facility] [address] [address] [address] Desean Ward Glucose [Mass/Vol] 95 mg/dL Normal 74-106 [facility] Comment on above: Performed By: #### C MP, LIPA, CMADM, JHONY #### [facility] [address] [place] [address] Dr. Desean Ward Potassium [Moles/Vol] 3.4 mmol/L Critically low 3.5-5.1 [facility] Comment on above: Performed By: #### C MP, LIPA, CMADM, JHONY #### [facility] [address] [place] [address] Dr. Desean Ward Protein [Mass/Vol] 6.8 g/dL Normal 6.4-8.2 [facility] Comment on above: Performed By: #### C MP, LIPA, CMADM, JHONY #### [facility] [address] [place] [address] Dr. Desean Ward Sodium [Moles/Vol] 132 mmol/L Critically low 136-145 Th e [facility] Comment on above: Performed By: #### C MP, LIPA, CMADM, JHONY #### [facility] [address] [address] [address] Desean Ward Urea nitrogen [Mass/Vol] 6.0 mg/dL Critically low 7.0-18.0 [facility] Comment on above: Performed By: #### C MP, LIPA, CMADM, HJONY #### [facility] [address] [address] [address] Desean Ward Urea nitrogen/Creatinine [Mass ratio] 7.2 mg/mg Normal [facility] Comment on above: Performed By: #### C MP, LIPA, CMADM, JHONY #### [facility] [address] [address] [address] Desean Ward XR CHEST 1 Von 05-18-2022 XR CHEST 1 V EXAM: XR CHEST 1 V HISTORY: Chest pain NAUSEA WITH VOMITING, UNSPECIFIED COMPARISON: None. TECHNIQUE: Single frontal view chest x-ray FINDINGS: No lobar consolidation, large pleural effusions, pneumothorax, or acute bony abnormality. Cardiac size is unremarkable. Accentuated left pulmonary vasculature density, likely secondary to projectional artifact. IMPRESSION: No radiographic evidence for acute chest abnormality. Electronically authenticated by: MONSE CARRIZALES Date: 2022-05-17 23:22 Normal [facility] Vital Signs Date Time Vital Sign Value Performing Clinician Karen bravo 09-12-2022 13:37-0500 Body height 157.48 cm DO Jose Shirin Work Phone: [facility] 09-12-2022 13:37-0500 Body weight 81.65 kg DO Jose Shirin Work Phone: [facility] 09-12-2022 13:37-0500 Diastolic blood pressure 94 mm[Hg] DO Jose Shirin Work Phone: [facility] 09-12-2022 13:37-0500 Heart rate 105 /min DO Jose Shirin Work Phone: [facility] 09-12-2022 13:37-0500 Respiratory rate 20 /min DO Ojse Shirin Work Phone: [facility] 09-12-2022 13:37-0500 SaO2% (BldA) [Mass fraction] 95 % DO Jose Carpio Work Phone: [facility] 09-12-2022 13:37-0500 Systolic blood pressure 142 mm[Hg] DO Jose Carpio Work Phone: [facility] Encounters Encounter Date Encounter Type Care Provider Facility Start: 11-20-2023 ambulatory Fercho [place] [facility] Start: 08-11-2023 End: 08-19-2023 Evaluation and management of inpatient TIFFANIE [facility] Start: 08-11-2023 End: 08-11-2023 Emergency department patient visit JAIR ADAM [facility] Start: 07-25-2023 End: 07-26-2023 ambulatory OUSMANE SOTO [facility] Start: [facility]: 07-14-2023 End: 07-15-2023 ambulatory [facility] Start: 07-14-2023 End: 07-14-2023 ambulatory OUSMANE SOTO [facility] Start: 05-26-2023 End: 05-27-2023 ambulatory [facility] Start: 05-26-2023 End: 05-27-2023 Encounter for gynecological examination (general) (routine) without abnormal findings [facility] Start: 04-30-2023 End: 05-03-2023 ambulatory WHITNEY MCCULLOUGH [facility] Start: 04-30-2023 End: 05-02-2023 [facility] Comment on above: Encounter for screen ing mammogram for malignant neoplasm of breast Start: 09-12-2022 End: 09-12-2022 Emergency department patient visit DO Jose Carpio Work Phone: [facility] Work Phone: Start: 05-17-2022 End: 05-18-[address] DOCTOR ABBOTT Facility:H1 Procedures Date Procedure Procedure Detail Performing Clinician Start: 04-30-2023 Screening mammograph y bi 2-view breast inc cad Whitney TERRELL Work Phone: Start: 06-10-2021 Microscopic observat ion [Identifier] in Cervix by Cyto stain [facility] Plan of Treatment Date Care Activity Detail Author Start: 04-15-2028 Lipid panel Lipids [facility] Start: 06-10-2024 Screening for malign ant neoplasm of cervix [facility] Start: 04-08-2024 Depression Monitoring Depression Mon itoring [facility] Start: 10-09-2023 End: 10-09-2023 Patient encounter procedure 10/09/2023 1:00 PM EST Office Visit [facility] [address] [place], [place] [id number] [place] [address] [facility] [place] [address] Return in about 6 weeks (around 05/20/2023) for Med cehck paxil smoking check. [facility] Comment on above: Return in about 6 we eks (around 05/20/2023) for Med cehck paxil smoking check. Start: 03-18-2023 Influenza vaccination Flu vaccine (# 1) [facility] Start: 09-12-2022 [facility] Start: 2009 Screening for malign ant neoplasm of cervix HPV (without or with Pap) [facility] Start: 1998 DTaP/Tdap/Td vaccine (1 - Tdap) DTaP/Tdap/Td vaccine (1 - Tdap) [facility] Start: 1994 HIV screening HIV screen [facility] Start: 1985 Pneumococcal 0-64 ye ars Vaccine (1 - PCV) Pneumococcal 0-64 years Vaccine (1 - PCV) [facility] Start: 02-05-1980 COVID-19 Vaccine (#1) COVID-19 Vacci ne (#1) [facility] Start: 1979 Hepatitis B vaccine (1 of 3 - 3-dose series) Hepatitis B vaccine (1 of 3 - 3-dose series) [facility] Patient referral [facility] Work Phone: Payers Date Payer Category Payer Self-pay [id number] 1980 Unknown [id number] [id number] 1980 Unknown [id number] 2.16.8 [id number] 1979 Unknown [id number] 2.16.8 [id number] 1979 Unknown [id number] 2.16. [id number] 1979 Unknown [id number] 2.16. [id number] 1979 Unknown [id number] 2.16. [id number] 1979 Unknown [id number] 2.16.8 [id number] 1979 Unknown [id number] 2.16.8 [id number] 1959 Unknown [id number] Medicaid [facility] [id number] Medicaid [place] [employer] [id number] 501 [id number] Unknown [id number] [id number] Social History Date Type Detail Facility Start: 01-26-2023 [facility] Start: 1980 Sex Assigned At Female F [facility] Start: 08-18-1995 [facility] [employer] Start: 08-18-1995 History of tobacco use Cigarette Smo ker [employer] Start: 04-08-2023 End: 04-30-2023 Cigarettes smoked current (pack per day) - Reported 1 [employer] Start: 04-08-2023 Tobacco use and exposure Smoke less tobacco non-user [employer] Start: 04-30-2023 Alcohol intake Lifetime non-d mk (finding) [employer] Start: 04-08-2023 End: 04-30-2023 Tobacco use panel [employer] How hard is it for y ou to pay for the very basics like food, housing, medical care, and heating Very hard [employer] Patient Health Questionnaire 9 item (PHQ-9) total score [Reported] 0 [employer] (I/We) worried johnny er (my/our) food would run out before (I/we) got money to buy more. Often true [employer] At any time in the p ast 12 months, were you homeless or living in alf [including now]? Yes [employer] Start: 04-08-2023 Tobacco Comment Unsure if she wants to quit [employer] Start: 1980 Sex Assigned At Not on file B ON [employer] NEGATED: Highlighted rowStart: NINF History of tobacco use Passive smoker [employer] Evaluation note Note Date & Type Note Facility Evaluation note No assessment information availa ble [facility] Work Phone: Evaluation note Note Date & Type Note Facility Evaluation note Diagnosis Encounter for screening mammogram for malignant neoplasm of breast Other screening mammogram documented in this encounter [employer] [facility] Discharge instructions Note Date & Type Note Facility Hospital Discharge instructions Additional Instructions Follow-up with your primary care doctor and mental health Return to the ED if develop worsening symptoms or concerns [facility] Work Phone: Summary Purpose Family History No Family History Records FoundNo Family History Records FoundNo Family History Records FoundNo Family History Records FoundNo Family History Records FoundNo Family History Records Found Advance Directives No Advanced Directives Records Found Advance Directive Response Recorded Date/ Time Advance Directives No August 20, 2018 1:35pm Chief Complaint and Reason for Visit Chief Complaint request mental eval Reason for Referral Specialty Diagnoses / Procedures Referred By Ron morgan Referred To Contact Radiology Diagnoses Encounter for screening mammogram for malignant neoplasm of breast Procedures JAMEE IRAM DIGITAL SCREEN SELF REFERRAL W OR WO CAD BILATERAL JAMEE DIGITAL SCREEN W [place] [address] [place] [address] Referral ID Status Reason Start Date Expiration Date Visits Re quested Visits Authorized [id number] Closed 04/08/2023 04/07/2024 1 1 Additional Source Comments INFORMATION SOURCE (unrecogn ized section and content) DATE CREATED AUTHOR 06/28/2022 [facility] DATE CREATED AUTHOR AUTHOR'S ORGANIZ ATION 07/15/2023 [facility] DATE CREATED AUTHOR AUTHOR'S ORGANIZ ATION 07/31/2023 [facility] DATE CREATED AUTHOR AUTHOR'S ORGANIZ ATION 08/21/2023 [facility] DATE CREATED AUTHOR AUTHOR'S ORGANIZ ATION 08/21/2023 [facility] DATE CREATED AUTHOR AUTHOR'S ORGANIZ ATION 01/08/2024 [facility] Care Teams (unrecognized sec tion and content) Team Status: Inactive Member Role Status Dates Jose Carpio DO Emergency Provider Active PHYSICIAN NO FAMILY Primary Care Provider Active Team Status: Active Member Role Status Dates PHYSICIAN NO FAMILY Primary Care Provider Active Program Supervisor Relationship Specialty Start [place] [address] [place] [address] PCP - General Physician Manager Music 04/08/23 Goals (unrecognized section and content) Goals may be documented in a n alternate section Reason for Visit (unrecogniz ed section and content) Specialty Diagnoses / Procedures Referred By Ron morgan Referred To Contact Radiology Diagnoses Encounter for screening mammogram for malignant neoplasm of breast Procedures JAMEE IRAM DIGITAL SCREEN SELF REFERRAL W OR WO CAD BILATERAL JAMEE DIGITAL SCREEN W OR WO CAD BILATERAL Whitney Mccullough, NIDHI [address] [facility] [place] [address] Referral ID Status Reason Start Date Expiration Date Visits Re quested Visits Authorized [id number] Closed 04/08/2023 04/07/2024 1 1 FOR RECORDS PERTAINING TO PATIENTS WHO ARE OR HAVE BEEN ENROLLED IN A CHEMICAL DEPENDENCY/SUBSTANCEABUSE PROGRAM, SOME INFORMATION MAY BE OMITTED. This clinical summary was aggregated from multiple sources. Caution should be exercised in using it in the provision of clinical care. This summary normalizes information from multiple sources, and as a consequence, information in this document may materially change the coding, format and clinical context of patient data. In addition, data may be omitted in some cases. CLINICAL DECISIONS SHOULD BE BASED ON THE PRIMARY CLINICAL RECORDS. [facility] [employer] provides no warranty or guarantee of the accuracy or completeness of information in this document.
--- NOTE | 2024-08-27 16:53 | ECG_ITS ---
The [facility] Test Date: 2024-08-27 Pat Name: KUN LANDAVERDE Department: Room: - Gender: Female [employer] Consultant: : 1980 Requested By: Order Number: [id number] Reading MD: JENNIFER ANNA Measurements Intervals [place] Rate: 115 P: 64 AL: 164 QRS: 78 QRSD: 90 T: 62 QT: 314 QTc: 382 Interpretive Statements 1120 Sinus tachycardia 7300 Indeterminate axis 8102 Low QRS voltage in chest leads 9140 abnormal rhythm ECG Electronically Signed On 08-28-2024 8:02:05 EST by JENNIFER ANNA
--- NOTE | 2024-08-27 16:53 | XR_ITS ---
The [address] [address] Patient Name: KUN LANDAVERDE MRN: [id number] date: 1980 Sex: F Assigned Patient Location: ER Current Patient Location: ER Accession/Order Number: [id number] Exam Date: 08/27/2024 17:08 Report Date: 08/27/2024 18:22 At the request of: COLTON GRAY Procedure: XR chest 1V CXR HISTORY: Shortness of breath COMPARISON: None. TECHNIQUE: 1 view chest submitted for review. FINDINGS: The lungs are adequately expanded without evidence of acute infiltrate or effusion. The cardiac silhouette measures within normal. Pulmonary vascularity is unremarkable. Osseous structures do not demonstrate any acute abnormality. XR/XR chest 1V IMPRESSION: No plain film evidence for acute cardiopulmonary disease. Electronically authenticated by: SADAF GÓMEZ Date: 08/27/2024 18:22
--- NOTE | 2024-08-27 17:04 | ED_ITS ---
HPI HPI - General Adult General Chief complaint: Shortness of Breath/Dyspnea Stated complaint: DIFF BREATHING, EAR CONGESTION, CHILLS Time Seen by Provider: 08/27/24 16:37 Source: patient Mode of arrival: walk-in History of Present Illness HPI narrative: Patient is a 44-year-old female who is presenting to the ER today with chief complaint of difficulty breathing intermittently for the past 2 months. Patient has 2 inhalers at home, she realized today that neither of her inhalers have any more puffs on them. Patient stated that she was staying with a family house, where she has a CPAP machine and a nebulizer. Patient states she is not been around anybody that had influenza or COVID. Patient states he supposed to wear CPAP at nighttime, but she does not have the machine. The family member locked the house, if she cannot get her supplies cannot afford another CPAP machine or nebulizer. Patient does have a PCP, Dr. Chand. Patient has no abdominal pain, nausea or vomiting. Patient has no recent traveling. Patient has a history of tobacco abuse history, smokes 1 pack of cigarettes a day when she is feeling well. Patient has a history of asthma, patient never been intubated. She does have a history of COPD. Patient states years ago she did have medication for COPD and when she was taking them she felt really good, she has not taken on years, has not refilled any medication. Patient is currently going from different houses living, she is currently staying in the basement of her friend's house. She states a friend's house a very nice, no old vents, no chance of mold that she believes. All systems are negative except as noted/marked. All systems reviewed and otherwise negative. Nurses note and vital signs reviewed and patient is not hypoxic. General: The patient appears well and in no apparent distress. Patient is resting comfortably on cart. Patient is not toxic, lethargic, or listless Skin: Warm, dry, no pallor noted. There is no rash noted. No petechiae, purpura. Head: Normocephalic, atraumatic Eye: Normal conjunctiva, no drainage, EOMI. PERRL Ears, Nose, Mouth, and Throat: oral mucosa is moist. Patient has clear drainage to the posterior pharynx, cobblestoning noted. No unilateral swelling. No oral airway compromise no intraoral pathology Nares patent. Mouth without vesicles. Cardiovascular: Regular Rate and Rhythm, no murmur, gallop, rub Respiratory: Patient is in no distress, no accessory muscle use, lungs are significantly diminished bilateral, faint wheezing to upper lobes bilateral, no rhonchi or rales heard, prolonged expiration, equal breath sounds bilateral. Back: non-tender, no CVA tenderness bilaterally to percussion. No CT LS midline pain GI: no tenderness to palpation, no masses appreciated. No rebound, guarding, or rigidity noted. No distention Musculoskeletal: Patient has full range of motion of all of the extremities, no motor, sensory, or focal neurological deficits Neurological: A&O x4, normal speech Psychiatric: Cooperative Related Data Allergies Allergy/AdvReac Type Severity Reaction Status Date / Time No Known Drug Allergies Allergy Verified 12/19/23 23:34 Opioid HPI Opioid Management Most Recent Opioid Data: Last Pain Scale 8 12/20/23 00:55 12/20/23 PFSH PFSH Social History Little interest or pleasure in doing things: not at all Feeling down, depressed, or hopeless: not at all Exam Constitutional Vital Signs, click to edit/add: Last Vital Signs Temp 98.4 F 08/27/24 16:34 Pulse 105 H 08/27/24 19:18 Resp 18 08/27/24 19:18 BP 130/82 08/27/24 18:30 Pulse Ox 96 08/27/24 19:18 O2 Del Method Nasal Cannula 08/27/24 19:18 O2 Flow Rate 2 08/27/24 19:18 Course Vital Signs Vital signs: Vital Signs Temperature 98.4 F 08/27/24 16:34 Pulse Rate 133 H 08/27/24 16:34 Respiratory Rate 20 08/27/24 16:34 Blood Pressure 108/77 08/27/24 16:34 Pulse Oximetry 95 08/27/24 16:34 Oxygen Delivery Method Room Air 08/27/24 16:34 Temperature 98.4 F 08/27/24 16:34 Pulse Rate 105 H 08/27/24 19:18 Respiratory Rate 18 08/27/24 19:18 Blood Pressure 130/82 08/27/24 18:30 Pulse Oximetry 96 08/27/24 19:18 Oxygen Delivery Method Nasal Cannula 08/27/24 19:18 Oxygen Delivery Flow Rate 2 08/27/24 19:18 Medical Decision Making MDM Narrative Medical decision making narrative: EKG shows tachycardia. Patient was given 2 DuoNeb breathing treatments, Solu- Medrol, chest x-ray, lab work. Influenza COVID swabs are done as well. Patient heart rate improved from the 130s down into the low 100s. Patient chest x-ray shows no acute signs of infiltrate, effusion, or acute cardiopulmonary disease. Patient was given albuterol aerosol at 7 PM. Patient will be given a dose of Levaquin. 1914 patient's heart rate is 107, blood pressure is 114/76, 94% on 2 L. 191 I have spoken to Linda NAVARRO, nurse practitioner. She recommended adding blood cultures, urine drug screen. Lactic acid is also been ordered along with urinalysis. Patient agrees to admission. I am concerned about patient going home, she has no inhalers, nebulizers, she has no CPAP to wear at nighttime. Patient lungs have improved, she still wheezy throughout, expiration has improved, she does have better air movement. However, she has a high risk of rebeca uncing back with failed outpatient treatment because she had does not have any many resources to obtain any medications as well. Patient will be admitted for observation. Patient will continue IV steroids, breathing treatments, and continue treatment on the floor. Lab Data Labs: Lab Results 08/27/24 08/27/24 08/27/24 Range/Units 17:00 17:50 18:10 WBC 23.0 H (4.0-11.0) 10^3/uL RBC 5.60 H (4.20-5.40) 10^6/uL Hgb 14.7 (12.0-16.0) g/dL Hct 46.5 (36.0-48.0) % MCV 83.0 (81.0-99.0) fL MCH 26.3 L (26.7-34.0) pg MCHC 31.6 (29.9-35.2) g/dL RDW 13.9 (11.0-15.0) % Plt Count 266 (150-450) 10^3/uL MPV 12.1 (9.5-13.5) fL Neut % (Auto) 77.6 H (43.0-75.0) % Lymph % (Auto) 10.3 L (20.5-60.0) % [place] % (Auto) 10.8 (1.7-12.0) % Eos % (Auto) 0.4 L (0.9-7.0) % Baso % (Auto) 0.4 (0.2-2.0) % Neut # (Auto) 17.8 H (1.4-6.5) 10^3/uL Lymph # (Auto) 2.4 (1.2-3.8) 10^3/uL [place] # (Auto) 2.5 H (0.3-0.8) 10^3/uL Eos # (Auto) 0.1 (0.0-0.7) 10^3/uL Baso # (Auto) 0.1 (0.0-0.1) 10^3/uL Abs Immat Gran (auto) 0.12 H (0.00-0.03) 10^3/uL Imm/Tot Granulo (auto) 0.5 (0.0-0.5) % D-Dimer 0.48 (<=0.59) mg/L FEU VBG pH 7.410 (7.330-7.430) VBG pCO2 38.7 L (40.0-52.0) mmHg Sodium 138 (136-145) mmol/L Potassium 3.7 (3.5-5.1) mmol/L Chloride 100 (98-107) mmol/L Carbon Dioxide 27.1 (21.0-32.0) mmol/L Anion Gap 14.6 BUN 7.0 (7.0-18.0) mg/dL Creatinine 0.88 (0.55-1.02) mg/dL Est GFR ( Amer) >60 (>=60 mL/min/1.73m^2) Est GFR (Non-Af Amer) >60 (>=60 mL/min/1.73m^2) BUN/Creatinine Ratio 8.0 Glucose 123 H (74-106) mg/dL Calcium 9.0 (8.5-10.1) mg/dL Troponin I High Sens <4.0 L (4.0-51.3) pg/mL NT-Pro-B Natriuret Pep 76.0 (<=450.0) pg/mL ECG Data Attestation: I personally reviewed and interpreted this ECG as follows: (EKG interpretation. Sinus tachycardia at 115. Normal axis deviation. No acute ST elevation, no acute ectopy. QTc of 382. Low voltage QRS.) Discharge Plan Discharge Chief Complaint: Shortness of Breath/Dyspnea Clinical Impression: Chronic dyspnea, Medical non-compliance, Asthma with COPD with exacerbation, Dehydration Patient Disposition: Admitted as Observation Time of Disposition Decision: 19:14 Condition: Fair
[2024-08-27] MEDS: METHYLPREDNISOLONE SOD SUCC PF 125 MG/2 ML VIAL IVP (17:09)
[2024-08-27] MEDS: IPRATROPIUM/ALBUTEROL SULFATE 3 ML AMPUL.NEB 6 ML IH (17:13)
[2024-08-27] MEDS: 0.9 % SODIUM CHLORIDE 1,000 ML 1000 ML IV (17:35)
[2024-08-27 18:01] LABS: Basophils Absolute Auto 0.1 10^3/uL (0.0-0.1); Basophils Percent Auto 0.4 % (0.2-2.0); Eosinophils Absolute Auto 0.1 10^3/uL (0.0-0.7); Eosinophils Percent Auto 0.4 % (0.9-7.0); Hematocrit 46.5 % (36.0-48.0); Hemoglobin 14.7 g/dL (12.0-16.0); Immature Granulocytes Abs Auto 0.12 10^3/uL (0.00-0.03); Immature Granulocytes Pct Auto 0.5 % (0.0-0.5); Lymphocytes Absolute Auto 2.4 10^3/uL (1.2-3.8); Lymphocytes Percent Auto 10.3 % (20.5-60.0); Mean Corpuscular HGB Conc 31.6 g/dL (29.9-35.2); Mean Corpuscular Hemoglobin 26.3 pg (26.7-34.0); Mean Platelet Volume 12.1 fL (9.5-13.5); Monocytes Absolute Auto 2.5 10^3/uL (0.3-0.8); Monocytes Percent Auto 10.8 % (1.7-12.0); Neutrophils Absolute Auto 17.8 10^3/uL (1.4-6.5); Neutrophils Percent Auto 77.6 % (43.0-75.0); Platelet Count 266 10^3/uL (150-450); Red Cell Distribution Width 13.9 % (11.0-15.0)
[2024-08-27 18:06] LABS: D Dimer 0.48 mg/L FEU (<=0.59)
[2024-08-27 18:18] LABS: Anion Gap 14.6; Carbon Dioxide 27.1 mmol/L (21.0-32.0); Chloride 100 mmol/L (98-107); Estimated GFR (African America >60 (>=60 mL/min/1.73m^2); Estimated GFR (Non-African Ame >60 (>=60 mL/min/1.73m^2); Glucose 123 mg/dL (74-106); Potassium 3.7 mmol/L (3.5-5.1); Sodium 138 mmol/L (136-145); Troponin I High Sensitivity <4.0 pg/mL (4.0-51.3)
[2024-08-27 18:24] LABS: PCO2 VBG 38.7 mmHg (40.0-52.0)
[2024-08-27] MEDS: ALBUTEROL SULFATE 2.5 MG/3 ML VIAL NEB IH (19:18)
[2024-08-27 20:00] LABS: Lactate/Lactic Acid 1.4 mmol/L (0.4-2.0)
--- OUTSIDE RECORDS SUMMARY | 2024-08-27 20:09 | XMS_ITS | CCD ---
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 Name Role Phone DR SHANIQUE VALERIO Primary Care Unavailable AMMY PAZ Admitting Unavailable AMMY PAZ Consulting Unavailable AMMY PAZ Attending Unavailable MARK [...] Value Interpretation Reference Range Facility Hepatitis Acute [facility] 08-15 Hep A Ab,IgM Non-Reactive Normal NR [facility] Comment on above: Performed By: #### T SHX, PTT, BHCG, CDP, PT #### [facility] [address] [place] [address] [employer]ary Furnace Tender: Pierre Cowart DO #### E2, FSH, LH #### [address] [address] [employer]ary Furnace Tender: Robert Neri MD Hep B Core Ab,IgM Non-Reactive Normal [facility] Comment on above: Performed By: #### T SHX, PTT, BHCG, CDP, PT #### [facility] [address] [place] [address] [employer]ary Furnace Tender: Pierre Cowart DO #### E2, FSH, LH #### [address] [address] [employer]ary Furnace Tender: Robert Neri MD Hep B Surf Ag Non-Reactive Normal [facility] Comment on above: Performed By: #### T SHX, PTT, BHCG, CDP, PT #### [facility] [address] [place] [address] [employer]ary Furnace Tender: Pierre Cowart DO #### E2, FSH, LH #### [address] [address] [employer]ary Furnace Tender: Robert Neri MD Hep C Ab Non-Reactive Normal [facility] Comment on above: Result Comment: The hepatitis [...] T SHX, PTT, BHCG, CDP, PT #### [facility] [address] [place] [address] [employer]ary Furnace Tender: Pierre Cowart DO #### E2, FSH, LH #### [address] [address] [employer]ary Furnace Tender: Robert Neri MD CBC with Diffon 08-13-2023 Abs. Basophil 0.10 k/uL Normal 0.0-0.2 [facility] Comment on above: Performed By: #### T SHX, PTT, BHCG, CDP, PT #### [facility] [place] [address] Rotary Furnace Tender: Pierre Cowart DO #### E2, FSH, LH #### [address] [address] [employer]ary Furnace Tender: Robert Neri MD Abs.Neutrophil (Seg) 5.00 k/uL Normal 1.3-9.1 [facility] Comment on above: Performed By: #### T SHX, PTT, BHCG, CDP, PT #### [facility] [place] [address] [employer]ary Furnace Tender: Pierre Cowart DO #### E2, FSH, LH #### [address] [address] [employer]ary Furnace Tender: Robert Neri MD Basophils/100 WBC (Bld) 1 % Normal 0-2 M [facility] Comment on above: Performed By: #### T SHX, PTT, BHCG, CDP, PT #### [facility] [place] [address] [employer]ary Furnace Tender: Pierre Cowart DO #### E2, FSH, LH #### [address] [address] Rotary Furnace Tender: Robert Neri MD Eosinophils (Bld) [#/Vol] 0.20 10*3/uL Normal 0.0-0.4 [facility] Comment on above: Performed By: #### T SHX, PTT, BHCG, CDP, PT #### [facility] [address] [place] [address] [employer]ary Furnace Tender: Pierre Cowart DO #### E2, FSH, LH #### [address] [address] Rotary Furnace Tender: Robert Neri MD Eosinophils/100 WBC (Bld) 2 % Normal 0-4 [facility] Comment on above: Performed By: #### T SHX, PTT, BHCG, CDP, PT #### [facility] [address] [place] [address] [employer]ary Furnace Tender: Pierre Cowart DO #### E2, FSH, LH #### [address] [address] [employer]ary Furnace Tender: Robert Neri MD Erythrocyte distribution width (RBC) [Ratio] 14.9 % Normal 11.5-14.9 [facility] Comment on above: Performed By: #### T SHX, PTT, BHCG, CDP, PT #### [facility] [address] [place] [address] Rotary Furnace Tender: Pierre Cowart DO #### E2, FSH, LH #### [address] [address] [employer]ary Furnace Tender: Robert Neri MD Hematocrit (Bld) [Volume fraction] 39.6 % Normal 36-46 [facility] Comment on above: Performed By: #### T SHX, PTT, BHCG, CDP, PT #### [facility] [address] [place] [address] [employer]ary Furnace Tender: Pierre Cowart DO #### E2, FSH, LH #### [id number] [place] [address] [employer]ary Furnace Tender: Robert Neri MD Hemoglobin (Bld) [Mass/Vol] 12.7 g/dL Normal 12.0-16.0 [facility] Comment on above: Performed By: #### T SHX, PTT, BHCG, CDP, PT #### [facility] [place] [address] Rotary Furnace Tender: Pierre Cowart DO #### E2, FSH, LH #### [address] [place] [address] [employer]ary Furnace Tender: Robert Neri MD Lymphocytes (Bld) [#/Vol] 2.70 10*3/uL Normal 1.0-4.8 [facility] Comment on above: Performed By: #### T SHX, PTT, BHCG, CDP, PT #### [facility] [address] [place] [address] Rotary Furnace Tender: Pierre Cowart DO #### E2, FSH, LH #### [address] [address] Rotary Furnace Tender: Robert Neri MD Lymphocytes/100 WBC (Bld) 31 % Normal 24-44 [facility] Comment on above: Performed By: #### T SHX, PTT, BHCG, CDP, PT #### [facility] [place] [address] Rotary Furnace Tender: Pierre Cowart DO #### E2, FSH, LH #### [address] [address] Rotary Furnace Tender: Robert Neri MD MCH (RBC) [Entitic mass] 27.5 pg Normal 26-34 [facility] Comment on above: Performed By: #### T SHX, PTT, BHCG, CDP, PT #### [facility] [address] [place] [address] Rotary Furnace Tender: Pierre Cowart DO #### E2, FSH, LH #### [address] [address] Rotary Furnace Tender: Robert Neri MD MCHC (RBC) [Mass/Vol] 32.0 g/dL Normal 31-37 [facility] Comment on above: Performed By: #### T SHX, PTT, BHCG, CDP, PT #### [facility] [place] [address] Rotary Furnace Tender: Pierre Cowart DO #### E2, FSH, LH #### [address] [address] Rotary Furnace Tender: Robert Neri MD MCV (RBC) [Entitic vol] 86.1 fL Normal 80-100 M [facility] Comment on above: Performed By: #### T SHX, PTT, BHCG, CDP, PT #### [facility] [place] [address] Rotary Furnace Tender: Pierre Cowart DO #### E2, FSH, LH #### [address] [address] Rotary Furnace Tender: Robert Neri MD Monocytes (Bld) [#/Vol] 0.80 10*3/uL Normal 0.1-1.3 [facility] Comment on above: Performed By: #### T SHX, PTT, BHCG, CDP, PT #### [facility] [address] [place] [address] Rotary Furnace Tender: Pierre Cowart DO #### E2, FSH, LH #### [address] [address] Rotary Furnace Tender: Robert Neri MD Monocytes/100 WBC (Bld) 10 % High 1-7 M [facility] Comment on above: Performed By: #### T SHX, PTT, BHCG, CDP, PT #### [facility] [address] [place] [address] Rotary Furnace Tender: Pierre Cowart DO #### E2, FSH, LH #### [address] [address] Rotary Furnace Tender: Robert Neri MD Neutrophil (Seg) 56 % Normal 36-66 [facility] Comment on above: Performed By: #### T SHX, PTT, BHCG, CDP, PT #### [facility] [address] [place] [address] Rotary Furnace Tender: Pierre Cowart DO #### E2, FSH, LH #### [address] [address] Rotary Furnace Tender: Robert Neri MD Platelet mean volume (Bld) [Entitic vol] 9.7 fL Normal 6.0-12.0 [facility] Comment on above: Performed By: #### T SHX, PTT, BHCG, CDP, PT #### [facility] [address] [place] [address] Rotary Furnace Tender: Pierre Cowart DO #### E2, FSH, LH #### [address] [address] Rotary Furnace Tender: Robert Neri MD Platelets (Bld) [#/Vol] 228 10*3/uL Normal 150-450 [facility] Comment on above: Performed By: #### T SHX, PTT, BHCG, CDP, PT #### [facility] [place] [address] Rotary Furnace Tender: Pierre Cowart DO #### E2, FSH, LH #### [address] [address] Rotary Furnace Tender: Robert Neri MD RBC (Bld) [#/Vol] 4.60 10*6/uL Normal 4.0-5.2 [facility] Comment on above: Performed By: #### T SHX, PTT, BHCG, CDP, PT #### [facility] [address] [place] [address] Rotary Furnace Tender: Pierre Cowart DO #### E2, FSH, LH #### [address] [address] Rotary Furnace Tender: Robert Neri MD WBC (Bld) [#/Vol] 8.9 10*3/uL Normal 3.5-11.0 [facility] Comment on above: Performed By: #### T SHX, PTT, BHCG, CDP, PT #### [facility] [address] [place] [address] Rotary Furnace Tender: Pierre Cowart DO #### E2, FSH, LH #### [address] [address] Rotary Furnace Tender: Robert Neri MD Comp Metabolic Pr/rfx MGon 1 10-14-2022 Albumin [Mass/Vol] 3.5 g/dL Normal 3.5-5.2 [facility] Comment on above: Performed By: #### T SHX, PTT, BHCG, CDP, PT #### [facility] [address] [place] [address] Rotary Furnace Tender: Pierre Cowart DO #### E2, FSH, LH #### [address] [address] Rotary Furnace Tender: Robert Neri MD Alkaline Phos 73 U/L Normal 35-104 [facility] Comment on above: Performed By: #### T SHX, PTT, BHCG, CDP, PT #### [facility] [address] [place] [address] Rotary Furnace Tender: Pierre Cowart DO #### E2, FSH, LH #### [address] [address] Rotary Furnace Tender: Robert Neri MD ALT [Catalytic activity/Vol] 36 U/L High 5-33 [facility] Comment on above: Performed By: #### T SHX, PTT, BHCG, CDP, PT #### [facility] [address] [place] [address] [employer]ary Furnace Tender: Pierre Cowart DO #### E2, FSH, LH #### [address] [address] Rotary Furnace Tender: Robert Neri MD Anion gap [Moles/Vol] 6 mmol/L Low 9-17 [facility] Comment on above: Performed By: #### T SHX, PTT, BHCG, CDP, PT #### [facility] [address] [place] [address] Rotary Furnace Tender: Pierre Cowart DO #### E2, FSH, LH #### [address] [address] Rotary Furnace Tender: Robert Neri MD AST [Catalytic activity/Vol] 25 U/L Normal <32 [facility] Comment on above: Performed By: #### T SHX, PTT, BHCG, CDP, PT #### [facility] [address] [place] [address] Rotary Furnace Tender: Pierre Cowart DO #### E2, FSH, LH #### [address] [address] Rotary Furnace Tender: Robert Neri MD Bilirubin [Mass/Vol] 0.3 mg/dL Normal 0.3-1.2 [facility] Comment on above: Performed By: #### T SHX, PTT, BHCG, CDP, PT #### [facility] [address] [place] [address] Rotary Furnace Tender: Pierre Cowart DO #### E2, FSH, LH #### [address] [address] Rotary Furnace Tender: Robert Neri MD Calcium [Mass/Vol] 8.6 mg/dL Normal 8.6-10.4 [facility] Comment on above: Performed By: #### T SHX, PTT, BHCG, CDP, PT #### [facility] [address] [place] [address] Rotary Furnace Tender: Pierre Cowart DO #### E2, FSH, LH #### [address] [address] Rotary Furnace Tender: Robert Neri MD Chloride [Moles/Vol] 106 mmol/L Normal 98-107 [facility] Comment on above: Performed By: #### T SHX, PTT, BHCG, CDP, PT #### [facility] [address] [place] [address] Rotary Furnace Tender: Pierre Cowart DO #### E2, FSH, LH #### [address] [address] Rotary Furnace Tender: Robert Neri MD CO2 [Moles/Vol] 28 mmol/L Normal 20-31 [facility] Comment on above: Performed By: #### T SHX, PTT, BHCG, CDP, PT #### [facility] [address] [place] [address] Rotary Furnace Tender: Pierre Cowart DO #### E2, FSH, LH #### [address] [address] Rotary Furnace Tender: Robert Neri MD Creatinine [Mass/Vol] 0.8 mg/dL Normal 0.5-0.9 [facility] Comment on above: Performed By: #### T SHX, PTT, BHCG, CDP, PT #### [facility] [address] [place] [address] Rotary Furnace Tender: Pierre Cowart DO #### E2, FSH, LH #### [address] [id number] Rot[employer] Furnace Tender: Robert Neri MD GFR/1.73 sq M.predicted among non-blacks MDRD (S/P/Bld) [Vol rate/Area] mL/min/{1.73_m2} Normal >60 [facility] Comment on above: Result Comment: These results [...] T SHX, PTT, BHCG, CDP, PT #### [facility] [address] [place] [address] Rotary Furnace Tender: Pierre Cowart DO #### E2, FSH, LH #### [address] [phone] Rot[employer] Furnace Tender: Robert Neri MD Glucose [Mass/Vol] 94 mg/dL Normal 70-99 [facility] Comment on above: Performed By: #### T SHX, PTT, BHCG, CDP, PT #### [facility] [address] [place] [address] Rotary Furnace Tender: Pierre Cowart DO #### E2, FSH, LH #### [address] [address] Rotary Furnace Tender: Robert Neri MD Potassium [Moles/Vol] 4.6 mmol/L Normal 3.7-5.3 [facility] Comment on above: Performed By: #### T SHX, PTT, BHCG, CDP, PT #### [facility] [place] [address] Rotary Furnace Tender: Pierre Cowart DO #### E2, FSH, LH #### [address] [address] Rotary Furnace Tender: Robert Neri MD Protein [Mass/Vol] 5.8 g/dL Low 6.4-8.3 [facility] Comment on above: Performed By: #### T SHX, PTT, BHCG, CDP, PT #### [facility] [place] [address] Rotary Furnace Tender: Pierre Cowart DO #### E2, FSH, LH #### [address] [address] Rotary Furnace Tender: Robert Neri MD Sodium [Moles/Vol] 140 mmol/L Normal 135-144 [facility] Comment on above: Performed By: #### T SHX, PTT, BHCG, CDP, PT #### [facility] [place] [address] Rotary Furnace Tender: Fanelly, Pierre, DO #### E2, FSH, LH #### [address] [place] [address] [employer]ary Furnace Tender: Robert Neri MD Urea nitrogen [Mass/Vol] 7 mg/dL Normal 6-20 [facility] Comment on above: Performed By: #### T SHX, PTT, BHCG, CDP, PT #### [facility] [address] [place] [address] Rotary Furnace Tender: Pierre Cowart DO #### E2, FSH, LH #### [address] [address] Rotary Furnace Tender: Robert Neri MD Hemoglobin A1Con 6 Glucose [Mass/Vol] 111 mg/dL Normal [facility] Comment on above: Result Comment: The ADA and AACC recommend providing the estimated average glucose result to permit better patient understanding of their HBA1c result. Performed By: #### T SHX, PTT, BHCG, CDP, PT #### [facility] [address] [place] [address] Rotary Furnace Tender: Pierre Cowart DO #### E2, FSH, LH #### [address] [address] Rotary Furnace Tender: Robert Neri MD HbA1c (Bld) [Mass fraction] 5.5 % Normal 4.0-6.0 [facility] Comment on above: Performed By: #### T SHX, PTT, BHCG, CDP, PT #### [facility] [address] [place] [address] Rotary Furnace Tender: Pierre Cowart DO #### E2, FSH, LH #### [address] [address] Rotary Furnace Tender: Robert Neri MD Lipid Profileon 08-13-2023 Cholesterol [Mass/Vol] 116 mg/dL Normal <200 [facility] Comment on above: Result Comment: Cholesterol Guidelines: <200 Desirable 200-240 Borderline >240 Undesirable Performed By: #### T SHX, PTT, BHCG, CDP, PT #### [facility] [address] [place] [address] Rotary Furnace Tender: Pierre Cowart DO #### E2, FSH, LH #### [address] [address] Rotary Furnace Tender: Robert Neri MD Cholesterol in HDL [Mass/Vol] 48 mg/dL Normal >40 [facility] Comment on above: Result Comment: HDL Guidelines: <40 Undesirable 40-59 Borderline >59 Desirable Performed By: #### T SHX, PTT, BHCG, CDP, PT #### [facility] [place] [address] Rotary Furnace Tender: Pierre Cowart DO #### E2, FSH, LH #### [address] [address] Rotary Furnace Tender: Robert Neri MD Cholesterol in LDL [Mass/Vol] 52 mg/dL Normal 0-130 [facility] Comment on above: Result Comment: LDL Guidelines: <100 Desirable 100-129 Near to/above Desirable 130-159 Borderline >159 Undesirable Direct (measured) LDL and calculated LDL are not interchangeable tests. Performed By: #### T SHX, PTT, BHCG, CDP, PT #### [facility] [address] [place] [address] Rotary Furnace Tender: Pierre Cowart DO #### E2, FSH, LH #### [address] [address] Rotary Furnace Tender: Robert Neri MD Cholesterol.total/Yamileth sterol in HDL [Mass ratio] 2.4 {ratio} Normal <5 [facility] Comment on above: Performed By: #### T SHX, PTT, BHCG, CDP, PT #### [facility] [place] [address] Rotary Furnace Tender: Pierre Cowart DO #### E2, FSH, LH #### [address] [address] Rotary Furnace Tender: Robert Neri MD Triglyceride [Mass/Vol] 81 mg/dL Normal <150 [facility] Comment on above: Result Comment: Triglyceride Guidelines: <150 Desirable 150-199 Borderline 200-499 High >499 Very high Based on AHA Guidelines for fasting triglyceride, May 2012. Performed By: #### T SHX, PTT, BHCG, CDP, PT #### [facility] [address] [place] [address] Rotary Furnace Tender: Pierre Cowart DO #### E2, FSH, LH #### [address] [address] Rotary Furnace Tender: Robert Neri MD TSH w/reflex to FT4on 2022 Thyroid Stim. Horm. 3.88 uIU/mL Normal 0.30-5.00 [facility] Comment on above: Performed By: #### T SHX, PTT, BHCG, CDP, PT #### [facility] [address] [place] [address] Rotary Furnace Tender: Pierre Cowart DO #### E2, FSH, LH #### [address] [address] Rotary Furnace Tender: Robert Neri MD Drug Scr, Abuse, Uron 2022 Amphetamine(s),Ur Negative Normal NEG [facility] Comment on above: Result Comment: (Positive cutoff 1000 ng/mL) Performed By: #### U MICAO, SCOTT, UAX #### [facility] [address] [place] [address] Rotary Furnace Tender: Pierre Cowart DO Barbiturate(s),Ur Negative Normal NEG [facility] Comment on above: Result Comment: (Positive cutoff 200 ng/mL) Performed By: #### U MICAO, SCOTT, UAX #### [facility] [place] [address] Rotary Furnace Tender: Pierre Cowart DO Benzodiazepine(s) Negative Normal NEG [facility] Comment on above: Result Comment: (Positive cutoff 200 ng/mL) Performed By: #### U MICAO, SCOTT, UAX #### [facility] [address] [place] [address] Rotary Furnace Tender: Pierre Cowart DO Cannabinoid(s),Ur Positive Abnormal NEG [facility] Comment on above: Result Comment: (Positive cutoff 50 ng/mL) Performed By: #### U MICAO, SCOTT, UAX #### [facility] [address] [place] [address] Rot[employer] Furnace Tender: Pierre Cowart DO Cocaine Metabolite Negative Normal NEG [facility] Comment on above: Result Comment: (Positive cutoff 300 ng/mL) Performed By: #### U MICAO, SCOTT, UAX #### [facility] [address] [place] [address] Rotary Furnace Tender: Pierre Cowart DO Fentanyl, Urine Negative Normal NEG [facility] Comment on above: Result Comment: (Positive cutoff 5 ng/ml) Performed By: #### U MICAO, SCOTT, UAX #### [facility] [address] [place] [address] Rotary Furnace Tender: Pierre Cowart DO Interpretive Info Assay provides medical screening only. The absence of expected drug(s) and/or Normal [facility] Comment on above: Result Comment: meta bolite(s) may indicate diluted or adulterated urine, limitations of testing or timing of collection. Testing for legal purposes should be confirmed by another method. To request confirmation of test result, please call the lab within 7 days of sample submission. Performed By: #### U MICAO, SCOTT, UAX #### [facility] [address] [place] [address] Rotary Furnace Tender: Pierre Cowart DO Methadone Ql (U) Negative Normal NEG [facility] Comment on above: Result Comment: (Positive cutoff 300 ng/mL) Performed By: #### U MICAO, SCOTT, UAX #### [facility] [address] [place] [address] Rotary Furnace Tender: Pierre Cowart DO Opiate(s), Ur Negative Normal NEG [facility] Comment on above: Result Comment: (Positive cutoff 300 ng/mL) Performed By: #### U MICAO, SCOTT, UAX #### [facility] [address] [place] [address] Rot[employer] Furnace Tender: Pierre Cowart DO Oxycodone, Urine Negative Normal NEG [facility] Comment on above: Result Comment: (Positive cutoff 100 ng/mL) Performed By: #### U MICAO, SCOTT, UAX #### [facility] [address] [place] [address] Rot[employer] Furnace Tender: Pierre Cowart DO Phencyclidine, Ur Negative Normal NEG [facility] Comment on above: Result Comment: (Positive cutoff 25 ng/mL) Performed By: #### U MICAO, SCOTT, UAX #### [facility] [address] [place] [address] [employer] Furnace Tender: Pierre Cowart DO UA w/Reflex Cultureon 2022 Bilirubin, SemiQt,Ur Negative Normal NEG [facility] Comment on above: Performed By: #### U MICAO, SCOTT, UAX #### [facility] [address] [place] [address] [employer] Furnace Tender: Pierre Cowart DO Blood, Urine Negative Normal NEG [facility] Comment on above: Performed By: #### U MICAO, SCOTT, UAX #### [facility] [address] [place] [address] [employer] Furnace Tender: Pierre Cowart DO Clarity (U) Turbid Abnormal CLEAR [facility] Comment on above: Performed By: #### U MICAO, SCOTT, UAX #### [facility] [address] [place] [address] [employer] Furnace Tender: Pierre Cowart DO Color (U) Yellow Normal YEL [facility] Comment on above: Performed By: #### U KYLIEO, SCOTT, UAX #### [facility] [address] [place] [address] [employer] Furnace Tender: Pierre Cowart DO Glucose Ql (U) Negative Normal NEG [facility] Comment on above: Performed By: #### U MICAO, SCOTT, UAX #### [facility] [address] [place] [address] [employer] Furnace Tender: Pierre Cowart DO Ketones Ql (U) Negative Normal NEG [facility] Comment on above: Performed By: #### U MICAO, SCOTT, UAX #### [facility] [address] [place] [address] [employer] Furnace Tender: Pierre Cowart DO Leukocyte esterase Test strip Ql (U) Negative Normal NEG [facility] Comment on above: Performed By: #### U MICAO, SCOTT, UAX #### [facility] [address] [place] [address] [employer] Furnace Tender: Pierre Cowart DO Nitrite,Ur Negative Normal NEG [facility] Comment on above: Performed By: #### U MICAO, SCOTT, UAX #### [facility] [place] [address] [employer]ary Furnace Tender: Pierre Cowart DO PH,Ur >=9.0 Normal 5.0-8.0 [facility] Comment on above: Performed By: #### U MICAO, SCOTT, UAX #### [facility] [address] [place] [address] [employer] Furnace Tender: Pierre Cowart DO Protein Ql (U) Negative Normal NEG [facility] Comment on above: Performed By: #### U MICAO, SCOTT, UAX #### [facility] [address] [place] [address] [employer] Furnace Tender: Pierre Cowart DO Spec. Tillar,Ur 1.016 Normal 1.000-1.030 [facility] Comment on above: Performed By: #### U MICAO, SCOTT, UAX #### [facility] [address] [place] [address] [employer] Furnace Tender: Pierre Cowart DO Urobilinogen,Ur Normal Normal 0.0-1.0 [facility] Comment on above: Performed By: #### U MICAO, SCOTT, UAX #### [facility] Lab [address] [place] [address] [employer]ary Furnace Tender: Pierre Cowart DO Urinalysis,Microon 3 Bacteria FEW Abnormal NONE [facility] Comment on above: Performed By: #### T SHX, PTT, BHCG, CDP, PT #### [facility] [address] [place] [address] [employer] Furnace Tender: Pierre Cowart DO #### E2, FSH, LH #### [address] [address] Rotary Furnace Tender: Robert Neri MD Casts 0 TO 2 Abnormal NONE [facility] Comment on above: Performed By: #### T SHX, PTT, BHCG, CDP, PT #### [facility] [address] [place] [address] [employer]ary Furnace Tender: Pierre Cowart DO #### E2, FSH, LH #### [address] [address] Rotary Furnace Tender: Robert Neri MD Epithelial cells LM Ql (Urine sed) 10 TO 20 Normal [facility] Comment on above: Performed By: #### T SHX, PTT, BHCG, CDP, PT #### [facility] [address] [place] [address] [employer] Furnace Tender: Pierre Cowart DO #### E2, FSH, LH #### [address] [address] Rotary Furnace Tender: Robert Neri MD Urine RBC's 0 TO 2 Normal R02 [facility] Comment on above: Performed By: #### T SHX, PTT, BHCG, CDP, PT #### [facility] [address] [place] [address] [employer] Furnace Tender: Pierre Cowart DO #### E2, FSH, LH #### [address] [address] Rotary Furnace Tender: Robert Neri MD Urine WBC's 3 to 5 Abnormal R05 [facility] Comment on above: Performed By: #### T SHX, PTT, BHCG, CDP, PT #### [facility] [address] [place] [address] [employer]ary Furnace Tender: Pierre Cowart DO #### E2, FSH, LH #### [address] [place] [id number] Rotary Furnace Tender: Robert Neri MD Surgical Pathology Reporton 07-25-2023 Surgical Pathology Report (NOTE) Path Number: [id number] -- Diagnosis -- UTERINE CAVITY, BIOPSY: - BENIGN ENDOCERVICAL TISSUE, SCANT SQUAMOUS EPITHELIUM AND MUCUS. - NO DIAGNOSTIC ENDOMETRIAL TISSUE IS IDENTIFIED. - NEGATIVE FOR ATYPIA AND MALIGNANCY. Marvin Mcneil M.D. Electronically Signed [facility]/07/29/2023 Clinical Information Pre-Op Diagnosis: IRREGULAR MENSES; SEVERE DYSMENORRHEA; LEFT OVARIAN CYST Operative Findings: ENDOMETRIUM kb Source of Specimen A: ENDOMETRIUM BIOPSY Gross Description KIERA LANDAVERDETHALIA BX Received in formalin is cloudy mason mucous, 2.8 x 2.5 x 0.2 cm in aggregate. Entirely 1cs. jj tm [facility]/kb2:07/28/2023 Microscopic Description The specimen consists of detached fragments of benign endocervical epithelium and stroma, scant squamous epithelium, and intermixed mucus. No diagnostic endometrial tissue is identified. There is no evidence of atypia or malignancy. Processing Lab: [address] [address] Interpretation Performed at [address] [id number] SURGICAL PATHOLOGY CONSULTATION Patient Name: KIERA LANDAVERDE [facility] Rec: [id number] [facility] ANATOMIC PATHOLOGY [address] [place] [phone] Normal [facility] APTTon 07-14-2023 aPTT Coag (Bld) [Time] 29.9 s Normal 24.0-36.0 [facility] Comment on above: Result Comment: IV Heparin Therapy Range: 62.0-94.0 Performed By: #### B HCG, CDP, PT, TSHX, PTT #### [facility] [address] [place], [place] [id number] [employer]ary Furnace Tender: Pierre Cowart DO #### E2, FSH, LH #### [address] [place] [address] Rotary Furnace Tender: Robert Neri MD Performed By: #### T SHX, PTT, BHCG, CDP, PT #### [facility] [address] [place] [address] Rotary Furnace Tender: Pierre Cowart DO #### E2, FSH, LH #### [address] [address] Rotary Furnace Tender: Robert Neri MD CBC with Diffon 07-14-2023 Abs. Basophil 0.10 k/uL Normal 0.0-0.2 [facility] Comment on above: Performed By: #### B HCG, CDP, PT, TSHX, PTT #### [facility] [address] [place] [address] Rotary Furnace Tender: Pierre Cowart DO #### E2, FSH, LH #### [address] [address] Rotary Furnace Tender: Robert eNri MD Performed By: #### T SHX, PTT, BHCG, CDP, PT #### [facility] [address] [place] [address] Rotary Furnace Tender: Pierre Cowart DO #### E2, FSH, LH #### [address] [address] Rotary Furnace Tender: Robert Neri MD Abs.Neutrophil (Seg) 6.70 k/uL Normal 1.3-9.1 [facility] Comment on above: Performed By: #### B HCG, CDP, PT, TSHX, PTT #### [facility] [address] [place] [address] Rotary Furnace Tender: Pierre Cowart DO #### E2, FSH, LH #### [address] [address] Rotary Furnace Tender: Robert Neri MD Performed By: #### T SHX, PTT, BHCG, CDP, PT #### [facility] [address] [place] [address] [employer] Furnace Tender: Pierre Cowart DO #### E2, FSH, LH #### [address] [address] Rotary Furnace Tender: Robert Neri MD Basophils/100 WBC (Bld) 1 % Normal 0-2 M [facility] Comment on above: Performed By: #### B HCG, CDP, PT, TSHX, PTT #### [facility] [address] [place] [address] Rotary Furnace Tender: Pierre Cowart DO #### E2, FSH, LH #### [place] [address] Rotary Furnace Tender: Robert Neri MD Performed By: #### T SHX, PTT, BHCG, CDP, PT #### [facility] [address] [place] [address] Rotary Furnace Tender: Pierre Cowart DO #### E2, FSH, LH #### [place] [address] Rotary Furnace Tender: Robert Neri MD Eosinophils (Bld) [#/Vol] 0.10 10*3/uL Normal 0.0-0.4 [facility] Comment on above: Performed By: #### B HCG, CDP, PT, TSHX, PTT #### [facility] [address] [place] [address] Rotary Furnace Tender: Pierre Cowart DO #### E2, FSH, LH #### [address] [address] Rotary Furnace Tender: Robert Neri MD Performed By: #### T SHX, PTT, BHCG, CDP, PT #### [facility] [address] [place] [address] Rotary Furnace Tender: Pierre Cowart DO #### E2, FSH, LH #### [address] [address] Rotary Furnace Tender: Robert Neri MD Eosinophils/100 WBC (Bld) 1 % Normal 0-4 [facility] Comment on above: Performed By: #### B HCG, CDP, PT, TSHX, PTT #### [facility] [address] [place] [address] Rotary Furnace Tender: Pierre Cowart DO #### E2, FSH, LH #### [address] [id number] Rotary Furnace Tender: Robert Neri MD Performed By: #### T SHX, PTT, BHCG, CDP, PT #### [facility] [place] [address] Rotary Furnace Tender: Pierre Cowart DO #### E2, FSH, LH #### [address] [address] Rotary Furnace Tender: Robert Neri MD Erythrocyte distribution width (RBC) [Ratio] 14.4 % Normal 11.5-14.9 [facility] Comment on above: Performed By: #### B HCG, CDP, PT, TSHX, PTT #### [facility] [place] [address] Rotary Furnace Tender: Pierre Cowart DO #### E2, FSH, LH #### [address] [address] Rotary Furnace Tender: Robert Neri MD Performed By: #### T SHX, PTT, BHCG, CDP, PT #### [facility] [place] [address] Rotary Furnace Tender: Pierre Cowart DO #### E2, FSH, LH #### [address] [address] Rotary Furnace Tender: Robetr Neri MD Hematocrit (Bld) [Volume fraction] 43.1 % Normal 36-46 [facility] Comment on above: Performed By: #### B HCG, CDP, PT, TSHX, PTT #### [facility] [address] [place] [address] Rotary Furnace Tender: Pierre Cowart DO #### E2, FSH, LH #### [address] [address] Rotary Furnace Tender: Robert Neri MD Performed By: #### T SHX, PTT, BHCG, CDP, PT #### [facility] [address] [place] [address] Rotary Furnace Tender: Pierre Cowart DO #### E2, FSH, LH #### [address] [address] Rotary Furnace Tender: Robert Neri MD Hemoglobin (Bld) [Mass/Vol] 14.1 g/dL Normal 12.0-16.0 [facility] Comment on above: Performed By: #### B HCG, CDP, PT, TSHX, PTT #### [facility] [address] [place] [address] Rotary Furnace Tender: Pierre Cowart DO #### E2, FSH, LH #### [address] [address] Rotary Furnace Tender: Robert Neri MD Performed By: #### T SHX, PTT, BHCG, CDP, PT #### [facility] [address] [place] [address] Rotary Furnace Tender: Pierre Cowart DO #### E2, FSH, LH #### [address] [address] Rotary Furnace Tender: Robert Neri MD Lymphocytes (Bld) [#/Vol] 1.80 10*3/uL Normal 1.0-4.8 [facility] Comment on above: Performed By: #### B HCG, CDP, PT, TSHX, PTT #### [facility] [address] [place] [address] Rotary Furnace Tender: Pierre Cowart DO #### E2, FSH, LH #### [address] [address] Rotary Furnace Tender: Robert Neri MD Performed By: #### T SHX, PTT, BHCG, CDP, PT #### [facility] [address] [place] [address] Rotary Furnace Tender: Pierre Cowart DO #### E2, FSH, LH #### [address] [address] Rotary Furnace Tender: Robert Neri MD Lymphocytes/100 WBC (Bld) 19 % Low 24-44 [facility] Comment on above: Performed By: #### B HCG, CDP, PT, TSHX, PTT #### [facility] [address] [place] [address] Rotary Furnace Tender: Pierre Cowart DO #### E2, FSH, LH #### [address] [address] Rotary Furnace Tender: Robert Neri MD Performed By: #### T SHX, PTT, BHCG, CDP, PT #### [facility] [address] [place] [address] Rotary Furnace Tender: Pierre Cowart DO #### E2, FSH, LH #### [address] [address] Rotary Furnace Tender: Robert Neri MD MCH (RBC) [Entitic mass] 27.8 pg Normal 26-34 [facility] Comment on above: Performed By: #### B HCG, CDP, PT, TSHX, PTT #### [facility] [address] [place] [address] Rotary Furnace Tender: Pierre Cowart DO #### E2, FSH, LH #### [address] [address] Rotary Furnace Tender: Robert Neri MD Performed By: #### T SHX, PTT, BHCG, CDP, PT #### [facility] [address] [place] [address] Rotary Furnace Tender: Pierre Cowart DO #### E2, FSH, LH #### [address] [address] Rotary Furnace Tender: Robert Neri MD MCHC (RBC) [Mass/Vol] 32.6 g/dL Normal 31-37 [facility] Comment on above: Performed By: #### B HCG, CDP, PT, TSHX, PTT #### [facility] [address] [place] [address] Rotary Furnace Tender: Pierre Cowart DO #### E2, FSH, LH #### [address] [address] Rotary Furnace Tender: Robert Neri MD Performed By: #### T SHX, PTT, BHCG, CDP, PT #### [facility] [address] [place] [address] Rotary Furnace Tender: Pierre Cowart DO #### E2, FSH, LH #### [address] [address] Rotary Furnace Tender: Robert Neri MD MCV (RBC) [Entitic vol] 85.2 fL Normal 80-100 M [facility] Comment on above: Performed By: #### B HCG, CDP, PT, TSHX, PTT #### [facility] [place] [address] Rotary Furnace Tender: Pierre Cowart DO #### E2, FSH, LH #### [address] [address] Rotary Furnace Tender: Robert Neri MD Performed By: #### T SHX, PTT, BHCG, CDP, PT #### [facility] [address] [place] [address] Rotary Furnace Tender: Pierre Cowart DO #### E2, FSH, LH #### [address] [address] Rotary Furnace Tender: Robert Neri MD Monocytes (Bld) [#/Vol] 1.00 10*3/uL Normal 0.1-1.3 [facility] Comment on above: Performed By: #### B HCG, CDP, PT, TSHX, PTT #### [facility] [address] [place] [address] Rotary Furnace Tender: Pierre Cowart DO #### E2, FSH, LH #### [address] [address] Rotary Furnace Tender: Robert Neri MD Performed By: #### T SHX, PTT, BHCG, CDP, PT #### [facility] [address] [place] [address] Rotary Furnace Tender: Pierre Cowart DO #### E2, FSH, LH #### [address] [place] [address] Rotary Furnace Tender: Robert Neri MD Monocytes/100 WBC (Bld) 11 % High 1-7 M [facility] Comment on above: Performed By: #### B HCG, CDP, PT, TSHX, PTT #### [facility] [address] [place] [address] Rotary Furnace Tender: Pierre Cowart DO #### E2, FSH, LH #### [address] [address] Rotary Furnace Tender: Robert Neri MD Performed By: #### T SHX, PTT, BHCG, CDP, PT #### [facility] [address] [place] [address] Rotary Furnace Tender: Pierre Cowart DO #### E2, FSH, LH #### [address] [address] Rotary Furnace Tender: Robert Neri MD Neutrophil (Seg) 68 % High 36-66 [facility] Comment on above: Performed By: #### B HCG, CDP, PT, TSHX, PTT #### [facility] [address] [place] [address] Rotary Furnace Tender: Pierre Cowart DO #### E2, FSH, LH #### [address] [address] Rotary Furnace Tender: Robert Neri MD Performed By: #### T SHX, PTT, BHCG, CDP, PT #### [facility] [address] [place] [address] Rotary Furnace Tender: Pierre Cowart DO #### E2, FSH, LH #### [address] [address] Rotary Furnace Tender: Robert Neri MD Platelet mean volume (Bld) [Entitic vol] 10.3 fL Normal 6.0-12.0 [facility] Comment on above: Performed By: #### B HCG, CDP, PT, TSHX, PTT #### [facility] [address] [place] [address] Rotary Furnace Tender: Pierre Cowart DO #### E2, FSH, LH #### [address] [address] Rotary Furnace Tender: Robert Neri MD Performed By: #### T SHX, PTT, BHCG, CDP, PT #### [facility] [address] [place] [address] Rotary Furnace Tender: Pierre Cowart DO #### E2, FSH, LH #### [address] [address] Rotary Furnace Tender: Robert Neri MD Platelets (Bld) [#/Vol] 226 10*3/uL Normal 150-450 [facility] Comment on above: Performed By: #### B HCG, CDP, PT, TSHX, PTT #### [facility] [address] [place] [address] Rotary Furnace Tender: Pierre Cowart DO #### E2, FSH, LH #### [address] [address] Rotary Furnace Tender: Robert Neri MD Performed By: #### T SHX, PTT, BHCG, CDP, PT #### [facility] [address] [place] [address] Rotary Furnace Tender: Pierre Cowart DO #### E2, FSH, LH #### [address] [address] Rotary Furnace Tender: Robert Neri MD RBC (Bld) [#/Vol] 5.06 10*6/uL Normal 4.0-5.2 [facility] Comment on above: Performed By: #### B HCG, CDP, PT, TSHX, PTT #### [facility] [address] [place] [address] Rotary Furnace Tender: Pierre Cowart DO #### E2, FSH, LH #### [address] [address] Rotary Furnace Tender: Robert Neri MD Performed By: #### T SHX, PTT, BHCG, CDP, PT #### [facility] [address] [place] [address] Rotary Furnace Tender: Pierre Cowart DO #### E2, FSH, LH #### [address] [address] Rotary Furnace Tender: Robert Neri MD WBC (Bld) [#/Vol] 9.7 10*3/uL Normal 3.5-11.0 [facility] Comment on above: Performed By: #### B HCG, CDP, PT, TSHX, PTT #### [facility] [address] [place] [address] Rotary Furnace Tender: Pierre Cowart DO #### E2, FSH, LH #### [address] [address] Rotary Furnace Tender: Robert Neri MD Performed By: #### T SHX, PTT, BHCG, CDP, PT #### [facility] [address] [place] [address] Rotary Furnace Tender: Pierre Cowart DO #### E2, FSH, LH #### [address] [address] Rotary Furnace Tender: Robert Neri MD Estradiolon 07-14-2023 Estradiol 107.0 pg/mL Normal [facility] Comment on above: Result Comment: FEMALES: Normally menstruating Luteal phase 60-232 Follicular phase 31-90 Midcycle phase 60-533 Postmenopausal (untreated) <138 Fulvestrant treatment will show an increased estradiol concentration with this methodology. Alternate methodologies are available upon request. Performed By: #### B HCG, CDP, PT, TSHX, PTT #### [facility] [address] [place] [address] Rotary Furnace Tender: Pierre Cowart DO #### E2, FSH, LH #### [facility] [employer] [address] [place] [address] Rotary Furnace Tender: Robert Neri MD Performed By: #### T SHX, PTT, BHCG, CDP, PT #### [facility] [address] [place] [address] Rotary Furnace Tender: Pierre Cowart DO #### E2, FSH, LH #### [facility] [address] [place] [address] Rotary Furnace Tender: Robert Neri MD Follicle Stim. Hormon 2022 Follicle Stim. Horm 7.7 mIU/mL Normal [facility] Comment on above: Result Comment: Refe rence Range: Male: 1.5-12.4 Ovulating Female: Follicular Phase 3.5-12.5 Ovulation Phase 4.7-21.5 Luteal Phase 1.7-7.7 Postmenopausal Female: 25.8-134.8 Performed By: #### B HCG, CDP, PT, TSHX, PTT #### [facility] [address] [place] [address] Rotary Furnace Tender: Pierre Cowart DO #### E2, FSH, LH #### [facility] [address] [place] [address] Rotary Furnace Tender: Robert Neri MD Performed By: #### T SHX, PTT, BHCG, CDP, PT #### [facility] [address] [place] [address] Rotary Furnace Tender: Pierre Cowart DO #### E2, FSH, LH #### [address] [address] Rotary Furnace Tender: Robert Neri MD HCG, Quanton 07-14-2023 HCG, Quant <1.0 Normal <5 [facility] Comment on above: Result Comment: Non-preg premeno <=5 Postmeno <=8 Male <=3 If HCG results do not concur with clinical observations, additional testing to confirm results is recommended. Performed By: #### B HCG, CDP, PT, TSHX, PTT #### [facility] [address] [place] [address] Rotary Furnace Tender: Pierre Cowart DO #### E2, FSH, LH #### [address] [address] Rotary Furnace Tender: Robert Neri MD Performed By: #### T SHX, PTT, BHCG, CDP, PT #### [facility] [address] [place] [address] Rotary Furnace Tender: Pierre Cowart DO #### E2, FSH, LH #### [address] [address] Rotary Furnace Tender: Robert Neri MD Luteinizing Hormoneon 5 Luteinizing Hormone 7.0 mIU/mL Normal 1.7-8.6 [facility] Comment on above: Result Comment: Refe rence Range: Male: 1.7-8.6 Ovulating Female: Follicular Phase 2.4-12.6 Ovulation Phase 14.0-95.6 Luteal Phase 1.0-11.4 Postmenopausal Female: 7.7-58.5 Performed By: #### B HCG, CDP, PT, TSHX, PTT #### [facility] [address] [place] [address] Rotary Furnace Tender: Pierre Cowart DO #### E2, FSH, LH #### [address] [address] Rotary Furnace Tender: Robert Neri MD Performed By: #### T SHX, PTT, BHCG, CDP, PT #### [facility] [address] [place] [address] Rotary Furnace Tender: Pierre Cowart DO #### E2, FSH, LH #### [address] [address] Rotary Furnace Tender: Robert Neri MD PTon 07-14-2023 INR Coag (PPP) [Relative time] 1.0 {INR} Normal [facility] Comment on above: Result Comment: Therapeutic Range: Moderate Anticoagulant Intensity: INR = 2.0-3.0 High Anticoagulant Intensity: INR = 2.5-3.5 Performed By: #### B HCG, CDP, PT, TSHX, PTT #### [facility] [place] [address] Rotary Furnace Tender: Pierre Cowart DO #### E2, FSH, LH #### [address] [address] Rotary Furnace Tender: Robert Neri MD Performed By: #### T SHX, PTT, BHCG, CDP, PT #### [facility] [address] [place] [address] Rotary Furnace Tender: Pierre Cowart DO #### E2, FSH, LH #### [address] [address] Rotary Furnace Tender: Robert Neri MD PT Coag (PPP) [Time] 13.6 s Normal 11.8-14.6 [facility] Comment on above: Performed By: #### B HCG, CDP, PT, TSHX, PTT #### [facility] [address] [facility] [place] [address] Rotary Furnace Tender: Pierre Cowart DO #### E2, FSH, LH #### [address] [address] Rotary Furnace Tender: Robert Neri MD Performed By: #### T SHX, PTT, BHCG, CDP, PT #### [facility] [address] [place] [address]. [place] [address] Rotary Furnace Tender: Pierre Cowart DO #### E2, FSH, LH #### [address] [address] Rotary Furnace Tender: Robert Neri MD TSH w/reflex to FT4on 2022 Thyroid Stim. Horm. 3.02 uIU/mL Normal 0.30-5.00 [facility] Comment on above: Performed By: #### B HCG, CDP, PT, TSHX, PTT #### [facility] [address] [place] [address]. [place] [address] Rotary Furnace Tender: Pierre Cowart DO #### E2, FSH, LH #### [address] [address] Rotary Furnace Tender: Robert Neri MD Performed By: #### T SHX, PTT, BHCG, CDP, PT #### [facility] [address] [place] [address] Rotary Furnace Tender: Pierre Cowart DO #### E2, FSH, LH #### [address] [address] Rotary Furnace Tender: Robert Neri MD US PELVIS COMPLETEon 023 US PELVIS COMPLETE Table formatting from the original result was not included. GYNECOLOGY ULTRASOUND REPORT [facility]; [address] [place] [address] m[place] Fax 07/14/2023 Contact Serial #: [id number] Kiera Landaverde Date of : 1980 Age: 42 y.o. The ultrasound images were reviewed. Please see the attached ultrasound report. Steam Locomotive Firer/Fireman: Demetria Anthony RDMS Assessment: Kiera Landaverde is [...] Ousmane Soto DO 07/14/23 Final result Normal [facility] HPV DNA High Riskon 05-28-20 23 HPV Interp Normal [facility] Comment on above: Result Comment: This [...] purposes. Performed By: #### H PVH #### [address] [address] Rotary Furnace Tender: Robert Neri MD HPV Type 16 Not detected Normal [facility] Comment on above: Performed By: #### H PVH #### [address] [address] Rotary Furnace Tender: Robert Neri MD HPV Type 18 Not detected Normal [facility] Comment on above: Performed By: #### H PVH #### [address] [address] Rotary Furnace Tender: Robert Neri MD Other High Risk HPV Not detected Normal [facility] Comment on above: Performed By: #### H PVH #### [address] [address] Rotary Furnace Tender: Robert Neri MD HPV DNA High Riskon 05-27-20 23 HPV Sample .THIN PREP Normal [facility] Comment on above: Performed By: #### H PVH #### [address] [address] Rotary Furnace Tender: Robert Neri MD Source CERVICAL MATERIAL Normal [facility] Comment on above: Performed By: #### H PVH #### [address] [address] Rotary Furnace Tender: Robert Neri MD Cytology Reporton 05-26-2023 Cytology report Cyto stain.thin prep Doc (Cvx/Vag) (NOTE) Path Number: [id number] DIAGNOSIS Imaged ThinPrep Pap - Cervical (1 [...] or for other forensic purposes. Performed at [facility], [address] [place], [place] [id number] . Source of Specimen: A: Imaged ThinPrep Pap - Cervical (1 monolayer slide) HPV Reflex?............ ..........HPV Regardless Clinical History Perimenopausal Z01.419 Routine sports marketer exam without abnormal findings Z11.51 Encounter for screening for HPV LMP: 02/21/23 Processing Lab: [address] [address] Interpretation performed at [address] [address] This Pap Test has been evaluated with [...] GYNECOLOGIC CYTOLOGY REPORT Patient Name: KIERA LANDAVERDE [facility] Rec: [id number] [facility] [facility] ANATOMIC [facility]OLOG[facility] [address] [place] [phone] Normal [facility] IRAM DIGITAL SCREEN SELF REFERRAL W OR WO CAD BILATERALon 05-02-2023 [facility] IRAM DIGITAL SCREEN SELF REFERRAL W OR [...] to the patient regarding the results. [employer] recommends annual mammograms for women 40 years and older. Interpreted by: Josh Mitchell MD Signed by: Josh Mitchell MD 05/02/23 Final result Normal [facility] No mammographic evidence of malignancy. BI-RADS 1 BIRADS: BIRADS - CATEGORY 1 Negative, no evidence of malignancy. Normal interval follow-up is recommended in 12 months. OVERALL ASSESSMENT - NEGATIVE A letter of notification will be sent to the patient regarding the results. The [employer] recommends annual mammograms for women 40 years and older. [facility]INATION: SCREENING DIGITAL BILATERAL MAMMOGRAM [...] area of architectural distortion. [facility] RIS CONSOLIDATED [facility] IRAM DIGITAL SCREEN SELF REFERRAL W OR WO CAD BILATERALOrdered By: Josh Mitchell on 05-02-2023 [employer] Work Phone: [facility] IRAM DIGITAL SCREEN SELF REFERRAL W OR WO CAD BILATERALon 04-30-2023 Radiology Study observation (narrative) [facility] Basophils Auto (Bld) [#/Vol] Ordered By: Jose Carpio on 09-12-2022 Basophils (Bld) [#/Vol] 0.1 10*3/uL 0.0-0.2 [facility] Basophils/100 WBC Auto (Bld) Ordered By: Jose Carpio on 09-12-2022 Basophils/100 WBC (Bld) 0.8 % . [facility] Body fluid albumin measureme nt (mass/volume)Ordered By: Jose Carpio on 09-12-2022 Albumin (Body fld) [Mass/Vol] 3.5 g/dL 3.2-5.5 [facility] Creatinine and Glomerular fi ltration rate.predicted panel (S/P/Bld)Ordered By: Jose Carpio on 09-12-2022 Creatinine [Mass/Vol] 0.80 mg/dL 0.44-1.03 [facility] Eosinophils Auto (Bld) [#/Vo l]Ordered By: Jose Carpio on 09-12-2022 Eosinophils (Bld) [#/Vol] 0.2 10*3/uL 0.0-0.45 [facility] Eosinophils/100 WBC Auto (Bl d)Ordered By: Jose Carpio on 09-12-2022 Eosinophils/100 WBC (Bld) 1.5 % . [facility] Erythrocyte distribution wid th Auto (RBC) [Ratio]Ordered By: Jose Carpio on 09-12-2022 Erythrocyte distribution width (RBC) [Ratio] 14.7 % 11.9-15.3 [facility] Estimated glomerular filtrat ion rate (GFR) non- AmericanOrdered By: Jose Carpio on 09-12-2022 GFR/1.73 sq M.predicted among non-blacks MDRD (S/P/Bld) [Vol rate/Area] > 60 mL/Min [facility] Globulin Calc (S) [Mass/Vol] Ordered By: Jose Carpio on 09-12-2022 Globulin (S) [Mass/Vol] 2.2 g/dL [facility] Hematocrit Auto (Bld) [Volum e fraction]Ordered By: Jose Carpio on 09-12-2022 Hematocrit (Bld) [Volume fraction] 42.2 % 34.0-46.4 [facility] Hemoglobin [Mass/volume] in BloodOrdered By: Jose Carpio on 09-12-2022 Hemoglobin (Bld) [Mass/Vol] 13.7 g/dL 11.8-15.4 [facility] Leukocytes [#/volume] correc carlos enrique for nucleated erythrocytes in Blood by Automated counOrdered By: Jose Carpio on 09-12-2022 WBC corrected for nucl RBC Auto (Bld) [#/Vol] 11.0 10*3/uL 3.8-11.6 [facility] Lymphocytes Auto (Bld) [#/Vo l]Ordered By: Jose Carpio on 09-12-2022 Lymphocytes (Bld) [#/Vol] 2.6 10*3/uL 1.00-4.8 [facility] Lymphocytes/100 WBC Auto (Bl d)Ordered By: Jose Carpio on 09-12-2022 Lymphocytes/100 WBC (Bld) 23.5 % . [facility] MCH Auto (RBC) [Entitic mass ]Ordered By: Jose Carpio on 09-12-2022 MCH (RBC) [Entitic mass] 27.3 pg 24.7-34.3 [facility] MCHC Auto (RBC) [Mass/Vol]Or dered By: Jose Carpio on 09-12-2022 MCHC (RBC) [Mass/Vol] 32.5 g/dL 32.0-35.0 [facility] MCV Auto (RBC) [Entitic vol] Ordered By: Jose Carpio on 09-12-2022 MCV (RBC) [Entitic vol] 84.2 fL 80-100 [facility] Monocyte distribution width [Entitic volume] in Blood by AutomatedOrdered By: Jose Carpio on 09-12-2022 Monocyte distribution width Auto (Bld) [Entitic vol] 17.69 % 0.00-20.00 [facility] Monocytes Auto (Bld) [#/Vol] Ordered By: Jose Carpio on 09-12-2022 Monocytes (Bld) [#/Vol] 1.0 10*3/uL 0.0-0.8 [facility] Monocytes/100 WBC Auto (Bld) Ordered By: Jose Carpio on 09-12-2022 Monocytes/100 WBC (Bld) 9.2 % . [facility] Neutrophils Auto (Bld) [#/Vo l]Ordered By: Jose Carpio on 09-12-2022 Neutrophils (Bld) [#/Vol] 7.1 10*3/uL 1.8-7.7 [facility] Neutrophils/100 WBC Auto (Bl d)Ordered By: Jose Carpio on 09-12-2022 Neutrophils/100 WBC (Bld) 65.0 % . [facility] No Panel InformationOrdered By: Jose Carpio on 09-12-2022 Estimated GFR () > 60 mL/Min [facility] Comment on above: GFR estimated refere nce range: According to KDOQI guidelines, <60 ml/min/1.73m2 is sufficient to diagnose a patient with chronic kidney disease. Pharmacy Creatinine Clearance (Chem 89.78 [facility] Nucleated erythrocytes [Pres ence] in Blood by Automated countOrdered By: Jose Carpio on 09-12-2022 Nucleated RBC Auto Ql (Bld) 0.2 /100{WBC} 0-0.5 [facility] Platelet mean volume Auto (B ld) [Entitic vol]Ordered By: Jose Carpio on 09-12-2022 Platelet mean volume (Bld) [Entitic vol] 10.3 fL 6.3-10.7 [facility] Platelets Auto (Bld) [#/Vol] Ordered By: Jose Carpio on 09-12-2022 Platelets (Bld) [#/Vol] 237 10*3/uL 150-450 [facility] Protein [Mass/volume] in Ser um or PlasmaOrdered By: Jose Carpio on 09-12-2022 Protein [Mass/Vol] 5.7 g/dL 6.1-7.9 [facility] RBC Auto (Bld) [#/Vol]Ordere d By: Jose Carpio on 09-12-2022 RBC (Bld) [#/Vol] 5.01 10*6/uL 3.60-5.00 [facility] Serum or plasma alanine enriquez otransferase measurement without P-5'-P (enzymatic activiOrdered By: Jose Carpio on 09-12-2022 ALT No additional P-5'-P [Catalytic activity/Vol] 20 U/L 10-60 [facility] Serum or plasma albumin/glob ulin mass ratioOrdered By: Jose Carpio on 09-12-2022 Albumin/Globulin [Mass ratio] 1.6 {ratio} [facility] Serum or plasma alkaline radha sphatase measurement (enzymatic activity/volume)Ordered By: Jose Carpio on 09-12-2022 ALP [Catalytic activity/Vol] 69 U/L 32-92 [facility] Serum or plasma anion gap de terminationOrdered By: Jose Carpio on 09-12-2022 Anion gap [Moles/Vol] 11.2 mmol/L 6.0-15.0 [facility] Serum or plasma aspartate am inotransferase measurement (enzymatic activity/volume)Ordered By: Jose Carpio on 09-12-2022 AST [Catalytic activity/Vol] 14 U/L 10-42 [facility] Serum or plasma calcium bouchra urement (mass/volume)Ordered By: Jose Carpio on 09-12-2022 Calcium [Mass/Vol] 8.9 mg/dL 8.2-10.2 [facility] Serum or plasma chloride seferino surement (moles/volume)Ordered By: Jose Carpio on 09-12-2022 Chloride [Moles/Vol] 103 mmol/L 95-114 [facility] Serum or plasma ethanol bouchra urement (mass/volume)Ordered By: Jose Carpio on 09-12-2022 Ethanol [Mass/Vol] mg/dL [facility] Ethanol [Mass/Vol] TNP [facility] Comment on above: Test not performed Serum or plasma glucose bouchra urement (mass/volume)Ordered By: Jose Carpio on 09-12-2022 Glucose [Mass/Vol] 134 mg/dL 70-100 [facility] Comment on above: ADA recommended refe rence rangeRandom Glucose Reference Range is dependent on time and content of last meal. Glucose of more than 200 mg/dL in a nonstressed, ambulatory subject supports the diagnosis of Diabetes Mellitus. Serum or plasma potassium me asurement (moles/volume)Ordered By: Joes Carpio on 09-12-2022 Potassium [Moles/Vol] 3.7 mmol/L 3.5-5.1 [facility] Serum or plasma sodium measu rement (moles/volume)Ordered By: Jose Carpio on 09-12-2022 Sodium [Moles/Vol] 137 mmol/L 136-146 [facility] Serum or plasma total biliru bin measurement (mass/volume)Ordered By: Jose Carpio on 09-12-2022 Bilirubin [Mass/Vol] 0.2 mg/dL 0.3-1.2 [facility] Serum or plasma total carbon dioxide measurement (moles/volume)Ordered By: Jose Carpio on 09-12-2022 CO2 [Moles/Vol] 26.5 mmol/L 22.0-30.0 [facility] Serum or plasma urea nitroge n measurement (mass/volume)Ordered By: Jose Carpio on 09-12-2022 Urea nitrogen [Mass/Vol] 6 mg/dL 9-23 [facility] WBC Auto (Bld) [#/Vol]Ordere d By: Jose Carpio on 09-12-2022 WBC (Bld) [#/Vol] 11.0 10*3/uL 3.8-11.6 [facility] AMYLASEon 05-18-2022 Amylase [Catalytic activity/Vol] 44 U/L Normal 25-115 [facility] Comment on above: Performed By: #### C MP, LIPA, CMADM, JHONY #### [facility] [address] [address] [address] Desean Ward CARDIAC HELEN ADMITon 022 CK [Catalytic activity/Vol] 51 U/L Normal 26-192 [facility] Comment on above: Performed By: #### C MP, LIPA, CMADM, JHONY #### [facility] [address] [place] [address] Dr. Desean Ward CK.MB [Mass/Vol] 1.15 ng/mL Normal <=3.60 [facility] Comment on above: Performed By: #### C MP, LIPA, CMADM, JHONY #### [facility] [address] [place] [address] Dr. Desean Ward HSTROP <4.0 Normal 4.0-51.3 [facility] Comment on above: Result Comment: CUT- OFF POINTS HAVE BEEN ESTABLISHED BASED ON THE FOURTH UNIVERSAL DEFINITIONS OF MYOCARDIAL INFARCTION. THE UPPER REFERENCE LIMIT (URL) OF TROPONIN, DEFINED THE 99TH PERCENTILE OF cTnI DISTRIBUTION IN A REFERENCE POPULATION, HAS BEEN CONFIRMED THE DECISION THRESHOLD FOR ND DIAGNOSIS. Performed By: #### C MP, LIPA, CMADM, JHONY #### [facility] [address] [place] [address] Dr. Desean Ward ESTEFANY 38 ng/mL Normal 9-82 [facility] Comment on above: Performed By: #### C MP, LIPA, CMADM, JHONY #### [facility] [address] [place] [address] Dr. Desean Ward CBC AUTO DIFFon 05-18-2022 BASO # 0.1 103/ul Normal 0.0-0.1 [facility] Comment on above: Performed By: #### C BC #### [facility] [address] [place] [address] Dr. Desean Ward Basophils/100 WBC (Bld) 0.8 % Normal 0.2-2.0 [facility] Comment on above: Performed By: #### C BC #### [facility] [address] [place] [address] Dr. Desean Ward EO # 0.2 103/ul Normal 0.0-0.7 [facility] Comment on above: Performed By: #### C BC #### [facility] [address] [place] [address] Dr. Desean Ward Eosinophils/100 WBC (Bld) 1.8 % Normal 0.9-7.0 [facility] Comment on above: Performed By: #### C BC #### [facility] [address] [place] [address] Dr. Desean Ward Erythrocyte distribution width (RBC) [Ratio] 14.3 % Normal 11.0-15.0 [facility] Comment on above: Performed By: #### C BC #### [facility] [address] [place] [address] Dr. Desean Ward Hematocrit (Bld) [Volume fraction] 43.5 % Normal 36.0-48.0 [facility] Comment on above: Performed By: #### C BC #### [facility] [address] [place] [address] Dr. Desean Ward Hemoglobin (Bld) [Mass/Vol] 13.8 g/dL Normal 12.0-16.0 [facility] Comment on above: Performed By: #### C BC #### [facility] [address] [place] [address] Dr. Desean Ward IG # 0.04 10e3/ul Critically high 0.00-0.03 [facility] Comment on above: Performed By: #### C BC #### [facility] [address] [place] [address] Dr. Desean Ward IG % 0.3 % Normal 0.0-0.5 [facility] Comment on above: Performed By: #### C BC #### [facility] [address] [place] [address] Dr. Desean Ward LYMPH # 3.2 103/ul Normal 1.2-3.8 [facility] Comment on above: Performed By: #### C BC #### [facility] [address] [place] [address] Dr. Desean Ward Lymphocytes/100 WBC (Bld) 24.5 % Normal 20.5-60.0 [facility] Comment on above: Performed By: #### C BC #### [facility] [address] [place] [address] Dr. Desean Ward MANUAL DIFF REQ NO Normal [facility] Comment on above: Performed By: #### C BC #### [facility] [address] [place] [address] Dr. Desean Ward MCH (RBC) [Entitic mass] 27.3 pg Normal 26.7-34.0 [facility] Comment on above: Performed By: #### C BC #### [facility] [address] [place] [address] Dr. Desean Ward MCHC (RBC) [Mass/Vol] 31.7 g/dL Normal 29.9-35.2 [facility] Comment on above: Performed By: #### C BC #### [facility] [address] [place] [address] Dr. Desean Ward MCV (RBC) [Entitic vol] 86.1 fL Normal 81.0-99.0 [facility] Comment on above: Performed By: #### C BC #### [facility] [address] [place] [address] Dr. Desean Ward MONO # 1.1 103/ul Critically high 0.3-0.[address] [facility] Comment on above: Performed By: #### C BC #### [facility] [address] [place] [address] Dr. Desean Ward Monocytes/100 WBC (Bld) 8.6 % Normal 1.7-12.0 [facility] Comment on above: Performed By: #### C BC #### [facility] [address] [place] [address] Dr. Desean Ward NEUT # 8.5 103/ul Critically high 1.4-6.[address] [facility] Comment on above: Performed By: #### C BC #### [facility] [address] [place] [address] Dr. Desean Ward Neutrophils/100 WBC (Bld) 64.0 % Normal 43.0-75.0 [facility] Comment on above: Performed By: #### C BC #### [facility] [address] [place] [address] Dr. Desean Ward Platelet mean volume (Bld) [Entitic vol] 11.3 fL Normal 9.5-13.5 [facility] Comment on above: Performed By: #### C BC #### [facility] [address] [place] [address] Dr. Desean Ward PLT 294 103/ul Normal 150-450 [facility] Comment on above: Performed By: #### C BC #### [facility] [address] [place] [address] Dr. Desean Ward RBC 5.05 106/ul Normal 4.20-5.40 [facility] Comment on above: Performed By: #### C BC #### [facility] [address] [place] [address] Dr. Desean Ward WBC 13.2 103/ul Critically high 4.0-11.0 [facility] Comment on above: Performed By: #### C BC #### [facility] [address] [place] [address] ABD/PELV W CONon [...] MARK OROZCO Date: 2022-05-18 00:06 Normal [facility] D-DIMERon 05-18-2022 D-DIMER 0.47 mg/L FEU Normal <=0.59 [facility] Comment on above: Performed By: #### D DIM #### [facility] [address] [place] [address] Dr. Desean Ward D-DIMER COMMENTS SEE BELOW Normal [facility] Comment on above: Result Comment: Incr eases [...] hospitalization. Performed By: #### D DIM #### [facility] [address] [address] [address] Desean Ward ER URINE PROFILEon 2 Bilirubin Ql (U) Negative Normal NEGATIVE [facility] Comment on above: Performed By: #### E RUR, PREGU #### [facility] [address] [address] [address] Desean Ward Clarity (U) CLEAR Normal CLEAR [facility] Comment on above: Performed By: #### E RUR, PREGU #### [facility] [address] [place] [address] Dr. Desean Ward Color (U) LT. YELLOW Normal YELLOW [facility] Comment on above: Performed By: #### E RUR, PREGU #### [facility] [address] [address] [address] Desean NEVAREZ A micrscopic examination will be performed if indicated. Normal [facility] Comment on above: Performed By: #### E RUR, PREGU #### [facility] [address] [address] [address] Desean Ward Glucose Ql (U) Negative Normal NEGATIVE [facility] Comment on above: Performed By: #### E RUR, PREGU #### [facility] [address] [place] [address] Dr. Desean Ward Hemoglobin Ql (U) Negative Normal NEGATIVE [facility] Comment on above: Performed By: #### E RUR, PREGU #### [facility] [address] [place] [address] Dr. Desean Ward Ketones Ql (U) Negative Normal NEGATIVE [facility] Comment on above: Performed By: #### E RUR, PREGU #### [facility] [address] [place] [address] Dr. Desean Ward LEUKOCYTES Negative Normal NEGATIVE [facility] Comment on above: Performed By: #### E RUR, PREGU #### [facility] [address] [place] [address] Dr. Desean Ward Nitrite Ql (U) Negative Normal NEGATIVE [facility] Comment on above: Performed By: #### E RUR, PREGU #### [facility] [address] [place] [address] Dr. Desean Ward pH (U) 6.0 [pH] Normal 5-9 [facility] Comment on above: Performed By: #### E RUR, PREGU #### [facility] [address] [address] [address] Desean Ward SPEC GRAVITY <=1.005 Abnormal 1.005-<=1.02 5 [facility] Comment on above: Performed By: #### E RUR, PREGU #### [facility] [address] [place] [address] Dr. Desean Ward UA PROTEIN Negative Normal NEGATIVE/ TRACE [facility] Comment on above: Performed By: #### E RUR, PREGU #### [facility] [address] [place] [address] Dr. Desean Ward UR MICRO IND NOT INDICATED Normal [facility] Comment on above: Performed By: #### E TAYLAR, PREGU #### [facility] [address] [place] [address] Dr. Desean Ward Urobilinogen Qn (U) 1.0 {Saul'U}/dL Normal 0.2 - 1. 0 [facility] Comment on above: Performed By: #### E TAYLAR, PREGU #### [facility] [address] [place] [address] Dr. Desean Ward LIPASEon 05-18-2022 Lipase [Catalytic activity/Vol] 109.0 U/L Normal 73.0-393.0 [facility] Comment on above: Performed By: #### C MP, LIPA, CMADM, JHONY #### [facility] [address] [place] [address] Dr. Desean Ward URon 05-18-2022 , QUAL Negative Normal NEGATIVE [facility] Comment on above: Performed By: #### Jena GORMAN, PREGU #### [facility] [address] [place] [address] Dr. Desean Ward PROF 14(COMP METB)on 022 Albumin [Mass/Vol] 3.6 g/dL Normal 3.4-5.0 [facility] Comment on above: Performed By: #### C MP, LIPA, CMADM, JHONY #### [facility] [address] [place] [address] Dr. Desean Ward Albumin/Globulin [Mass ratio] 1.1 {ratio} Normal [facility] Comment on above: Performed By: #### C MP, LIPA, CMADM, JHONY #### [facility] [address] [place] [address] Dr. Desean Ward ALP [Catalytic activity/Vol] 89 U/L Normal 46-116 [facility] Comment on above: Performed By: #### C MP, LIPA, CMADM, JHONY #### [facility] [address] [place] [address] Dr. Desean Ward ALT [Catalytic activity/Vol] 45 U/L Normal 14-59 [facility] Comment on above: Performed By: #### C MP, LIPA, CMADM, JHONY #### [facility] [address] [place] [address] Dr. Desean Ward Anion gap [Moles/Vol] 8.5 mmol/L Normal [facility] Comment on above: Performed By: #### C MP, LIPA, CMADM, JHONY #### [facility] [address] [place] [address] Dr. Desean Ward AST [Catalytic activity/Vol] 14 U/L Critically low 15-37 [facility] Comment on above: Performed By: #### C MP, LIPA, CMADM, JHONY #### [facility] [address] [place] [address] Dr. Desean Ward Bilirubin [Mass/Vol] 0.4 mg/dL Normal 0.2-1.0 [facility] Comment on above: Performed By: #### C MP, LIPA, CMADM, JHONY #### [facility] [address] [place] [address] Dr. Desean Ward Calcium [Mass/Vol] 8.7 mg/dL Normal 8.5-10.1 [facility] Comment on above: Performed By: #### C MP, LIPA, CMADM, JHONY #### [facility] [address] [address] [address] Desean Ward Chloride [Moles/Vol] 98 mmol/L Normal 98-107 [facility] Comment on above: Performed By: #### C MP, LIPA, CMADM, JHONY #### [facility] [address] [place] [address] Dr. Desean Ward CO2 [Moles/Vol] 28.9 mmol/L Normal 21.0-32.0 [facility] Comment on above: Performed By: #### C MP, LIPA, CMADM, JHONY #### [facility] [address] [place], [place] [id number] Dr. Desean Ward Creatinine [Mass/Vol] 0.83 mg/dL Normal 0.55-1.02 [facility] Comment on above: Performed By: #### C MP, LIPA, CMADM, JHONY #### [facility] [address] [address] [address] Desean Ward EGFR-AF MEXICAN >60 Normal >=60 [facility] Comment on above: Performed By: #### C MP, LIPA, CMADM, JHONY #### [facility] [address] [address] [address] Desean Ward EGFR-NON AF MEXICAN >60 Normal >=60 [facility] Comment on above: Performed By: #### C MP, LIPA, CMADM, JHONY #### [facility] [address] [place] [address] Dr. Desean Ward Globulin (S) [Mass/Vol] 3.2 g/dL Normal T [facility] Comment on above: Performed By: #### C MP, LIPA, CMADM, JHONY #### [facility] [address] [address] [address] Desean Ward Glucose [Mass/Vol] 95 mg/dL Normal 74-106 [facility] Comment on above: Performed By: #### C MP, LIPA, CMADM, JHONY #### [facility] [address] [place] [address] Dr. Desean Ward Potassium [Moles/Vol] 3.4 mmol/L Critically low 3.5-5.1 [facility] Comment on above: Performed By: #### C MP, LIPA, CMADM, JHONY #### [facility] [address] [place] [address] Dr. Desean Ward Protein [Mass/Vol] 6.8 g/dL Normal 6.4-8.2 [facility] Comment on above: Performed By: #### C MP, LIPA, CMADM, JHONY #### [facility] [address] [place] [address] Dr. Desean Ward Sodium [Moles/Vol] 132 mmol/L Critically low 136-145 Th e [facility] Comment on above: Performed By: #### C MP, LIPA, CMADM, JHONY #### [facility] [address] [address] [address] Desean Ward Urea nitrogen [Mass/Vol] 6.0 mg/dL Critically low 7.0-18.0 [facility] Comment on above: Performed By: #### C MP, LIPA, CMADM, JHONY #### [facility] [address] [address] [address] Desean Ward Urea nitrogen/Creatinine [Mass ratio] 7.2 mg/mg Normal [facility] Comment on above: Performed By: #### C MP, LIPA, CMADM, JHONY #### [facility] [address] [address] [address] Desean Ward XR CHEST 1 Von [...] by: MONSE CARRIZALES Date: 2022-05-17 23:22 Normal [facility] Vital Signs Date Time Vital Sign Value Performing Clinician Karen bravo 09-12-2022 13:37-0500 Body height 157.48 cm DO Jose Shirin Work Phone: [facility] 09-12-2022 13:37-0500 Body weight 81.65 kg DO Jose Shirin Work Phone: [facility] 09-12-2022 13:37-0500 Diastolic blood pressure 94 mm[Hg] DO Jose Shirin Work Phone: [facility] 09-12-2022 13:37-0500 Heart rate 105 /min DO Jose Shirin Work Phone: [facility] 09-12-2022 13:37-0500 Respiratory rate 20 /min DO Jose Shirin Work Phone: [facility] 09-12-2022 13:37-0500 SaO2% (BldA) [Mass fraction] 95 % DO Jose Carpio Work Phone: [facility] 09-12-2022 13:37-0500 Systolic blood pressure 142 mm[Hg] DO Jose Carpio Work Phone: [facility] Encounters Encounter Date Encounter Type Care Provider Facility Start: 11-20-2023 ambulatory Fercho [place] acility:[facility] Start: 08-11-2023 End: 08-19-2023 Evaluation and management of inpatient TIFFANIE [facility] Start: 08-11-2023 End: 08-11-2023 Emergency department patient visit JAIR ADAM [facility] Start: 07-25-2023 End: 07-26-2023 ambulatory OUSMANE SOTO [facility] Start: [facility]: 07-14-2023 End: 07-15-2023 ambulatory [facility] Start: 07-14-2023 End: 07-14-2023 ambulatory OUSMANE SOTO [facility] Start: 05-26-2023 End: 05-27-2023 ambulatory [facility] Start: 05-26-2023 End: 05-27-2023 Encounter for gynecological examination (general) (routine) without abnormal findings [facility] Start: 04-30-2023 End: 05-03-2023 ambulatory WHITNEY MCCULLOUGH [facility] Start: 04-30-2023 End: 05-02-2023 Subsequent hospital visit by physician [facility] Mammography Comment on above: Encounter for screen [...] [Identifier] in Cervix by Cyto stain [facility] Plan of Treatment Date Care Activity Detail Author Start: 04-15-2028 Lipid panel Lipids [facility] Start: 06-10-2024 Screening for malign ant neoplasm of cervix [facility] Start: 04-08-2024 Depression Monitoring Depression Mon itoring [facility] Start: 10-09-2023 End: 10-09-2023 Patient encounter procedure 10/09/2023 1:00 PM EST Office Visit [facility] [id number] [place], [place] [id number] [place] [address] [facility] [place] [address] Return in about 6 weeks (around 05/20/2023) for Med cehck paxil smoking check. [facility] Comment on above: Return in about 6 we eks (around 05/20/2023) for Med cehck paxil smoking check. Start: 03-18-2023 Influenza vaccination Flu vaccine (# 1) [facility] Start: 09-12-2022 [facility] Start: 2009 Screening for malign ant neoplasm of cervix HPV (without or with Pap) [facility] Start: 1998 DTaP/Tdap/Td vaccine (1 - Tdap) DTaP/Tdap/Td vaccine (1 - Tdap) [facility] Start: 1994 HIV screening HIV screen [facility] Start: 1985 Pneumococcal 0-64 ye ars Vaccine (1 - PCV) Pneumococcal 0-64 years Vaccine (1 - PCV) [facility] Start: 02-05-1980 COVID-19 Vaccine (#1) COVID-19 Vacci ne (#1) [facility] Start: 1979 Hepatitis B vaccine (1 of 3 - 3-dose series) Hepatitis B vaccine (1 of 3 - 3-dose series) [facility] Patient referral [facility] Work Phone: Payers Date Payer Category Payer Self-pay [id number] 1980 Unknown [id number] 1980 Unknown [id number] 2.16.8 [id number] 1979 Unknown [id number] 2.16.8 [id number] 1979 Unknown [id number] 2.16. [id number] 1979 Unknown [id number] 2.16. [id number] 1979 Unknown [id number] 2.16. [id number] 1979 Unknown [id number] 2.16.8 [id number] 1979 Unknown [id number] 2.16.8 [id number] 1959 Unknown [id number] Medicaid [facility] [id number] Medicaid [place] [employer] [id number] 501 [id number] Unknown [id number] [id number] Social History Date Type Detail Facility Start: 01-26-2023 [facility] Start: 1980 Sex Assigned At Female F [facility] Start: 08-18-1995 [facility] daily [employer] Start: 08-18-1995 History of tobacco use Cigarette Smo ker [employer] Start: 04-08-2023 End: 04-30-2023 Cigarettes smoked current (pack per day) - Reported 1 [employer] Start: 04-08-2023 Tobacco use and exposure Smoke less tobacco non-user [employer] Start: 04-30-2023 Alcohol intake Lifetime non-d mk (finding) [employer] Start: 04-08-2023 End: 04-30-2023 Tobacco use panel [employer] How hard is it for y ou to pay for the very basics like food, housing, medical care, and heating Very hard [employer] Patient Health Questionnaire 9 item (PHQ-9) total score [Reported] 0 [employer] (I/We) worried johnny er (my/our) food would run out before (I/we) got money to buy more. Often true [employer] At any time in the p ast 12 months, were you homeless or living in group home [including now]? Yes [employer] Start: 04-08-2023 Tobacco Comment Unsure if she wants to quit [employer] Start: 1980 Sex Assigned At Not on file B [employer] NEGATED: Highlighted rowStart: NINF History of tobacco use Passive smoker [employer] Evaluation note Note Date & Type Note Facility Evaluation note No assessment information availa ble [facility] Work Phone: Evaluation note Note Date & Type Note Facility Evaluation note Diagnosis Encounter for screening mammogram for malignant neoplasm of breast Other screening mammogram documented in this encounter [employer] [facility] Hospital Discharge instructions Note Date & Type Note Facility Hospital Discharge instructions Additional Instructions Follow-up with your primary care doctor and mental health Return to the ED if develop worsening symptoms or concerns [facility] Work Phone: Summary Purpose Family History [...] [place] [address] [place] [address] Referral ID Status Reason Start Date Expiration Date Visits Re quested Visits Authorized [id number] Closed 04/08/2023 04/07/2024 1 1 Additional Source Comments INFORMATION SOURCE (unrecogn ized section and content) DATE CREATED AUTHOR 06/28/2022 [facility] DATE CREATED AUTHOR AUTHOR'S ORGANIZ ATION 07/15/2023 [facility] DATE CREATED AUTHOR AUTHOR'S ORGANIZ ATION 07/31/2023 [facility] DATE CREATED AUTHOR AUTHOR'S ORGANIZ ATION 08/21/2023 [facility] DATE CREATED AUTHOR AUTHOR'S ORGANIZ ATION 08/21/2023 [facility] DATE CREATED AUTHOR AUTHOR'S ORGANIZ ATION 01/08/2024 [facility] Care Teams (unrecognized sec tion and content) Team Status: Inactive Member Role Status Dates Jose Carpio DO Emergency Provider Active PHYSICIAN NO FAMILY Primary Care Provider Active Team Status: Active Member Role Status Dates PHYSICIAN NO FAMILY 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 [facility] [employer] provides no warranty or guarantee of the accuracy or completeness of information in this document.
[2024-08-27] MEDS: LEVOFLOXACIN IN DEXTROSE 5 % 750 MG/150 ML PREMIX 100 MG IV (20:15)
[2024-08-27] MEDS: ENOXAPARIN SODIUM 40 MG/0.4 ML SYRINGE SUBQ (21:00)
[2024-08-27] MEDS: NICOTINE 21 MG PATCH.TD24 TD (21:00)
[2024-08-27] MEDS: ACETAMINOPHEN 325 MG TABLET 650 MG PO (21:01)
[2024-08-27 22:22] LABS: Bilirubin Urine NEGATIVE (NEGATIVE); Blood Urine TRACE-I (NEGATIVE); Clarity Urine CLEAR (CLEAR); Color Urine YELLOW (YELLOW); Glucose Urine UA 500 mg/dL (NEGATIVE); Ketones Urine 15 mg/dL (NEGATIVE); Leukocyte Esterase Urine NEGATIVE (NEGATIVE); Nitrite Urine NEGATIVE (NEGATIVE); Protein Urine NEGATIVE (NEG/TRACE); Specific Gravity Urine >=1.030 (1.005-1.025); pH Urine 5.5 (5.0-9.0)
[2024-08-27 22:25] LABS: HCG Qualitative Urine* NEGATIVE (NEGATIVE); Internal Control Within Normal Limits
[2024-08-27 22:30] LABS: Bacteria Urine TRACE #/HPF (NONE SEEN); RBC Urine 0-2 #/HPF (0-2); WBC Urine 0-2 #/HPF (NONE SEEN)
[2024-08-27 22:31] LABS: Cast Seen? NONE SEEN #/LPF (NONE SEEN); Crystals Seen? None Seen #/HPF (None Seen); Mucus Urine MODERATE (NONE SEEN); Squamous Epithelial Cell Urine MODERATE #/LPF (NONE/RARE)
[2024-08-27 22:35] LABS: Amphetamine Screen Urine NEGATIVE (NEGATIVE); Barbiturates Screen Urine NEGATIVE (NEGATIVE); Benzodiazepines Screen Urine NEGATIVE (NEGATIVE); Buprenorphine Screen Urine NEGATIVE (NEGATIVE); Cannabinoid Screen Urine POSITIVE (NEGATIVE); Cocaine Screen Urine NEGATIVE (NEGATIVE); Methadone Screen Urine NEGATIVE (NEGATIVE); Methamphetamines Screen Urine NEGATIVE (NEGATIVE); Opiate Screen Urine POSITIVE (NEGATIVE); Oxycodone Screen Urine NEGATIVE (NEGATIVE); Phencyclidine Screen Urine NEGATIVE (NEGATIVE); Tricyclic Antidepressant Urine NEGATIVE (NEGATIVE)
[2024-08-27] MEDS: IPRATROPIUM/ALBUTEROL SULFATE 3 ML AMPUL.NEB IH (23:03)
[2024-08-28] VITALS (20 sets, daily range): BP systolic 107–125; BP diastolic 69–81; PULSE 74–112; TEMP 36.6–36.8; O2SAT 88–95
[2024-08-28] MEDS: METHYLPREDNISOLONE SOD SUCC PF 40 MG/ML VIAL IVP ×3 (01:09→17:46)
[2024-08-28] MEDS: IPRATROPIUM/ALBUTEROL SULFATE 3 ML AMPUL.NEB IH ×6 (04:00→23:07)
[2024-08-28 06:18] LABS: Basophils Percent Auto 0.1 % (0.2-2.0); Hematocrit 40.5 % (36.0-48.0); Hemoglobin 12.7 g/dL (12.0-16.0); Immature Granulocytes Abs Auto 0.06 10^3/uL (0.00-0.03); Immature Granulocytes Pct Auto 0.4 % (0.0-0.5); Lymphocytes Percent Auto 6.7 % (20.5-60.0); Mean Corpuscular HGB Conc 31.4 g/dL (29.9-35.2); Mean Corpuscular Hemoglobin 26.3 pg (26.7-34.0); Mean Corpuscular Volume 83.9 fL (81.0-99.0); Mean Platelet Volume 12.1 fL (9.5-13.5); Monocytes Absolute Auto 0.3 10^3/uL (0.3-0.8); Monocytes Percent Auto 1.9 % (1.7-12.0); Neutrophils Absolute Auto 13.7 10^3/uL (1.4-6.5); Neutrophils Percent Auto 90.9 % (43.0-75.0); Platelet Count 222 10^3/uL (150-450); Red Blood Count 4.83 10^6/uL (4.20-5.40); Red Cell Distribution Width 13.8 % (11.0-15.0)
[2024-08-28] MEDS: ACETAMINOPHEN 325 MG TABLET 650 MG PO ×2 (06:37→21:26)
[2024-08-28 06:55] LABS: Alanine Aminotransferase 11 U/L (14-59); Alkaline Phosphatase 77 U/L (46-116); Anion Gap 11.5; Aspartate Amino Transferase 8 U/L (15-37); BUN Creatinine Ratio 7.2; Bilirubin Total 0.3 mg/dL (0.2-1.0); Calcium 8.8 mg/dL (8.5-10.1); Carbon Dioxide 27.5 mmol/L (21.0-32.0); Chloride 102 mmol/L (98-107); Estimated GFR (African America >60 (>=60 mL/min/1.73m^2); Estimated GFR (Non-African Ame >60 (>=60 mL/min/1.73m^2); Glucose 171 mg/dL (74-106); Magnesium 1.7 mg/dL (1.8-2.4); Sodium 137 mmol/L (136-145); Total Protein 6.4 g/dL (6.4-8.2)
--- NOTE | 2024-08-28 07:59 | PM.HP ---
HPI H&P: HPI History of Present Illness Chief complaint: DIFF BREATHING, EAR CONGESTION, CHILLS,ASTHMA EXAC Narrative: Patient is a 44 year old white female with past medical history of Asthma and COPD and is a 1 pack per day smoker. She has been staying with friends and family and does not have her nebulizer and CPAP machine. She does not take any medications or use inhalers frequently and recently has run out of what inhalers she did have, she cannot remember the names of them. She has a restraining order on her from her grandmother and place that has zeyad nebulizer machine and CPAP so she has been uable to get it back. She was admitted overnight for increased shortness of breath, cough that she reports is going on for the last 1-2 weeks. No fevers or chills. ER findings: D-dimer normal, Troponin normal , ProBNP normal, Chest Xray showed no acute disease. WBC's elevated of 23, Lactate normal, Urine drug screen positive for opiates and THC. Patient was given breathing treatments, Solumedrol and Levaquin IV. She was admitted to the hospitalist service for further plan of care for her Acute COPD exacerbation. Opioid HPI Opioid Management Most Recent Pain and Opioid Data: Last Pain Scale 0 08/28/24 07:37 08/28/24 Last Pain Assessment 08/28/24 09:00 Last MAR Pain Assessment 08/28/24 07:37 Last ORT Total Score 5 08/27/24 20:13 08/27/24 Last ORT Risk Category Moderate Risk 08/27/24 20:13 08/27/24 Ur Phencyclidine Scrn Negative (NEGATIVE) 08/27/24 22:09 08/27/24 Review of Systems ROS Narrative ROS: a complete review of systems were reviewed with patient and are positive as below or listed in History of Chief Complaint. General: no fever, chills, night sweats Head: no headache, trauma, visual changes, nausea or vomiting Skin: no reported rashes, itching or sores Eyes: no blurriness of vision Ears: no reported hearing loss, vertigo, earache, or tinnitus Throat: no sore throat, hoarseness, swelling of neck, or tongue pain Heart: chest pain Lungs: shortness of breath and cough GI: no diarrhea or vomiting/nausea Urinary: no urinary urgency, frequency or pain Neuro: no numbness or tingling HEM: no bleeding issues or bruising ENDO: no thyroid problems Psych: [facility] History (Updated 08/28/24 @ 08:13 by Anneliese Barrientos DO) Tobacco abuse ?Z72.0 - Tobacco use (ICD-10) Marijuana abuse ?F12.10 - Cannabis abuse, uncomplicated (ICD-10) Social History Highest level of school completed/degree received: high school graduate Little interest or pleasure in doing things: several days Feeling down, depressed, or hopeless: several days Meds Home Medications and Allergies Allergies Allergy/AdvReac Type Severity Reaction Status Date / Time No Known Drug Allergies Allergy Verified 12/19/23 23:34 Exam Narrative Exam Narrative: General: Patient is alert, and oriented to person, place and time with normal affect, proper hygiene Skin: no visible rashes, or ulcers Head: atraumatic, acephalic Eyes: PERRLA, no nystagmus present, conjunctiva clear, no scleral icterus Ears: normal gross auditory acuity Nose: symmetric, no discharge, no maxillary or frontal sinus tenderness Neck: no masses palpated, normal thyroid Heart: Normal rate and rhythm, no murmurs/rubs/gallops Lungs: audible wheezes, no crackles and diminished breath sounds all lung alcantar Abdomen: Normal audible bowel sounds, no distension, No palpable masses, no organomegaly, no rebound/guarding/ or rigidity Musculoskeletal: no swelling bilateral lower extremities Neuro: CN II-X grossly intact Constitutional Vital Signs, click to edit/add: Last Vital Signs Temp 97.9 F 08/28/24 05:42 Pulse 85 08/28/24 07:35 Resp 18 08/28/24 05:42 BP 119/76 08/28/24 05:42 Pulse Ox 94 L 08/28/24 07:35 O2 Del Method Room Air 08/28/24 07:35 O2 Flow Rate 2 08/28/24 05:42 Results Labs Labs: Short CBC 08/27/24 08/28/24 Range/Units 17:50 05:39 WBC 23.0 H 15.0 H (4.0-11.0) 10^3/uL Hgb 14.7 12.7 (12.0-16.0) g/dL Hct 46.5 40.5 (36.0-48.0) % Plt Count 266 222 (150-450) 10^3/uL BMP 08/27/24 08/28/24 17:00 05:39 Sodium 138 137 Potassium 3.7 4.0 Chloride 100 102 Carbon Dioxide 27.1 27.5 BUN 7.0 6.0 L Creatinine 0.88 0.83 Glucose 123 H 171 H Calcium 9.0 8.8 Liver Function 08/28/24 Range/Units 05:39 Total Bilirubin 0.3 (0.2-1.0) mg/dL AST 8 L (15-37) U/L ALT 11 L (14-59) U/L Alkaline Phosphatase 77 (46-116) U/L Urine 08/27/24 Range/Units 22:09 Urine Color Yellow (YELLOW) Urine Clarity Clear (CLEAR) Urine pH 5.5 (5.0-9.0) Ur Specific [place] >=1.030 A (1.005-1.025) Urine Protein Negative (NEG/TRACE) mg/dL Urine Glucose (UA) 500 A (NEGATIVE) mg/dL ABG ABG results: 08/27/24 18:10 VBG pH 7.410 VBG pCO2 38.7 L Assessment and Plan Assessment and Plan (1) Asthma with COPD with exacerbation: Assessment and Plan: continue with solumedrol 40mg IV q8 hours, OPEP, Duonebs and pulmicort nebs scheduled. IV levaquin will be transitioned to PO today. Currently saturating well on Room air but given her history of asthma and COPD and current smoker and non compliance/social situation, she has increased risk of respiratory decompensation. Monitor oxygen saturation closely. (2) Medical non-compliance: Assessment and Plan: currently on no medications, will need inhalers, steroid taper and antibiotics at discharge, and close PCP follow up. (3) Hypomagnesemia: Assessment and Plan: mag was 1.7, replace with 2 grams IV (4) Marijuana abuse: Assessment and Plan: positive in UDS. (5) Tobacco abuse: Assessment and Plan: she would benefit from tobacco and THC cessation. Plan continue Lovenox for DVT prophylaxis Patient is a full code Currently observation status but will require 1 more day of hospital necessary care for her COPD exacerbation
[2024-08-28] MEDS: MAGNESIUM SULFATE IN WATER 2 GM/50 ML PREMIX IV (08:29)
[2024-08-28] MEDS: ENOXAPARIN SODIUM 40 MG/0.4 ML SYRINGE SUBQ (08:29)
[2024-08-28 09:27] LABS: Albumin Globulin Ratio 0.9; Globulin 3.4 g/dL
[2024-08-28] MEDS: BUDESONIDE 0.5 MG/2 ML AMPULE NEB IH ×2 (11:01→23:07)
[2024-08-28] MEDS: LEVOFLOXACIN 750 MG TABLET PO (13:12)
[2024-08-28] MEDS: NICOTINE 21 MG PATCH.TD24 TD (21:25)
[2024-08-29] VITALS (14 sets, daily range): BP systolic 109–111; BP diastolic 56–72; PULSE 84–122; TEMP 36.4–36.7; O2SAT 92–98
[2024-08-29] MEDS: METHYLPREDNISOLONE SOD SUCC PF 40 MG/ML VIAL IVP ×2 (01:06→08:29)
[2024-08-29] MEDS: IPRATROPIUM/ALBUTEROL SULFATE 3 ML AMPUL.NEB IH ×3 (03:48→11:23)
[2024-08-29 06:18] LABS: Hematocrit 37.7 % (36.0-48.0); Mean Corpuscular HGB Conc 31.8 g/dL (29.9-35.2); Mean Corpuscular Hemoglobin 26.6 pg (26.7-34.0); Mean Corpuscular Volume 83.6 fL (81.0-99.0); Platelet Count 241 10^3/uL (150-450); Red Blood Count 4.51 10^6/uL (4.20-5.40); White Blood Count 22.4 10^3/uL (4.0-11.0)
[2024-08-29 06:33] LABS: Alanine Aminotransferase 16 U/L (14-59); Albumin Globulin Ratio 0.9; Albumin Level 2.8 g/dL (3.4-5.0); Alkaline Phosphatase 74 U/L (46-116); Anion Gap 10.5; Aspartate Amino Transferase 8 U/L (15-37); BUN Creatinine Ratio 13.6; Bilirubin Total 0.2 mg/dL (0.2-1.0); Calcium 8.8 mg/dL (8.5-10.1); Carbon Dioxide 29.8 mmol/L (21.0-32.0); Chloride 103 mmol/L (98-107); Estimated GFR (African America >60 (>=60 mL/min/1.73m^2); Estimated GFR (Non-African Ame >60 (>=60 mL/min/1.73m^2); Globulin 3.2 g/dL; Glucose 177 mg/dL (74-106); Potassium 4.3 mmol/L (3.5-5.1); Sodium 139 mmol/L (136-145)
[2024-08-29 06:45] LABS: Lymphocytes Absolute Manual 0.67 10^3/uL (1.20-3.80); Monocytes Absolute Manual 0.22 10^3/uL (0.30-0.80)
--- NOTE | 2024-08-29 07:50 | PM.DS1 ---
DS: Providers Provider Date of admission: 08/27/24 20:00 Primary care physician: Non-Staff Physician, Attending physician on admission: Anneliese Barrientos Consults: 08/27/24 Consult to Epic Ambulatory Analysts Routine Reason for consult:: Financial Concerns Attending physician on discharge: Anneliese Barrientos DS: Diagnosis Discharge Diagnosis (1) Asthma with COPD with exacerbation: (2) Medical non-compliance: (3) Hypomagnesemia: (4) Marijuana abuse: (5) Tobacco abuse: DS: Summary Hospital Course Hospital Course: Patient is a 44 year old white female with past medical history of Asthma and COPD and is a 1 pack per day smoker. She has been staying with friends and family and does not have her nebulizer and CPAP machine. She does not take any medications or use inhalers frequently and recently has run out of what inhalers she did have, she cannot remember the names of them. She has a restraining order on her from her grandmother and place that has zeyad nebulizer machine and CPAP so she has been uable to get it back. She was admitted overnight for increased shortness of breath, cough that she reports is going on for the last 1-2 weeks. No fevers or chills. ER findings: D-dimer normal, Troponin normal , ProBNP normal, Chest Xray showed no acute disease. WBC's elevated of 23, Lactate normal, Urine drug screen positive for opiates and THC. Patient was given breathing treatments, Solumedrol and Levaquin IV. She was admitted to the hospitalist service for further plan of care for her Acute COPD exacerbation. WBC's at the time of discharge were 22.4 but patient is on high dose IV steroids. She continues to saturate well on room air. Otherwise labs are normal range. No events on Telemetry. She will be discharged home today with close PCP follow up that she will call Clinic tomorrow for follow up. Will be discharged on Albuterol inhaler, Trelogy, Prednisone 40mg x 7 days, and Levaquin 750mg PO daily x 5 days. She may return to the ER with any worsening signs or symptoms. She is encouraged to try to get her nebulizer and CPAP machines as insurance is less likely to not cover another. Patient is afebrile. I have given her a written work note for 1 week off, any further time off or documentation for court she will need to see her PCP. Status at Discharge Functional status at discharge: independent ambulation Overall status at discharge: patient is progressing back to baseline Time Spent with Patient Time attestation: Total time spent providing and/or coordinating discharge services: Time spent: greater than 30 minutes Exam Narrative Exam Narrative: General: Patient is alert, and oriented to person, place and time with normal affect, proper hygiene Skin: no visible rashes, or ulcers Head: atraumatic, acephalic Eyes: PERRLA, no nystagmus present, conjunctiva clear, no scleral icterus Ears: normal gross auditory acuity Nose: symmetric, no discharge, no maxillary or frontal sinus tenderness Neck: no masses palpated, normal thyroid Heart: Normal rate and rhythm, no murmurs/rubs/gallops Lungs: audible wheezes, no crackles and diminished breath sounds all lung alcantar, improved compared to yesterday Abdomen: Normal audible bowel sounds, no distension, No palpable masses, no organomegaly, no rebound/guarding/ or rigidity Musculoskeletal: no swelling bilateral lower extremities Neuro: CN II-X grossly intact Constitutional Vital Signs, click to edit/add: Last Vital Signs Temp 97.5 F L 08/29/24 05:46 Pulse 93 H 08/29/24 07:47 Resp 18 08/29/24 07:40 BP 109/72 08/29/24 05:46 Pulse Ox 98 08/29/24 07:48 O2 Del Method Room Air 08/29/24 07:48 O2 Flow Rate 2 08/29/24 05:46 DS: Data Data Completed and Pending Labs on day of discharge: Labs from last 24 hours 08/29/24 08/28/24 05:47 05:39 WBC 22.4 H RBC 4.51 Hgb 12.0 Hct 37.7 MCV 83.6 MCH 26.6 L MCHC 31.8 RDW 14.0 Plt Count 241 MPV 12.0 Seg Neuts % (Manual) 96.0 H Lymphocytes % (Manual) 3.0 L Monocytes % (Manual) 1.0 L Eosinophils % (Manual) 0.0 L Basophils % (Manual) 0.0 L Neutrophils # (Manual) 21.50 H Lymphocytes # (Manual) 0.67 L Monocytes # (Manual) 0.22 L Eosinophils # (Manual) 0.00 Basophils # (Manual) 0.00 Sodium 139 Potassium 4.3 Chloride 103 Carbon Dioxide 29.8 Anion Gap 10.5 BUN 12.0 Creatinine 0.88 Est GFR ( Amer) >60 Est GFR (Non-Af Amer) >60 BUN/Creatinine Ratio 13.6 Glucose 177 H Calcium 8.8 Total Bilirubin 0.2 AST 8 L ALT 16 Alkaline Phosphatase 74 Total Protein 6.0 L Albumin 2.8 L 3.0 L Globulin 3.2 3.4 Albumin/Globulin Ratio 0.9 0.9 Discharge Plan Discharge Disposition: Home, Self-Care Condition: Fair Discharge Medications: New levofloxacin 750 mg Tablet 750 mg PO Q24H 5 Days Qty: 5 0RF albuterol sulfate 90 mcg/actuation HFA aerosol inhaler 2 inh inhalation Q4H PRN (Reason: shortness of breath or wheezing) Qty: 8.5 0RF prednisone 20 mg tablet 20 mg PO BID 7 Days Qty: 14 0RF Trelegy Ellipta 100-62.5-25 mcg blister with device 1 inh inhalation DAILY Qty: 60 0RF Activity: increase activity as tolerated and other Activity Detail: wear CPAP at night time Diet: advance to your usual diet Print Language: Kinyarwanda Forms: Portal Instructions Follow Up Appointments: please call PCP's office friday for hospital follow up appointment this week Given work excuse for 1 week until seen by PCP
[2024-08-29] MEDS: ENOXAPARIN SODIUM 40 MG/0.4 ML SYRINGE SUBQ (08:28)
[2024-08-29] MEDS: LEVOFLOXACIN 750 MG TABLET PO (11:02)
[2024-08-29] MEDS: BUDESONIDE 0.5 MG/2 ML AMPULE NEB IH (11:23)
--- NOTE | 2024-08-30 09:58 | SWNOTE1 ---
SW consulted for financial concerns, pt was discharged prior to SW seeing her.
--- NOTE | 2024-08-30 14:41 | CM.DCFOLLOWU ---
No phone number listed 08/30/24
== END 2024-08-29 15:48 | disposition home or self-care (01) ==
LOC: ER 19:14 → MS 20:06
PROVIDERS: Registered Nurse; Admitting Provider Family Medicine; Emergency Provider Emergency Medicine; Visit Provider Family Medicine
DX: J44.1 Chronic obstructive pulmonary disease with (acute) exacerbation (principal); R06.00 Dyspnea, unspecified; E86.0 Dehydration; Z91.198 Patient's noncompliance with other medical treatment and regimen for other reason; F17.210 Nicotine dependence, cigarettes, uncomplicated; F11.90 Opioid use, unspecified, uncomplicated; E83.42 Hypomagnesemia; F12.10 Cannabis abuse, uncomplicated
CPT/HCPCS: 36415; 71045; 80048; 80053; 80307; 81001; 82800; 83605; 83735; 83880; 84484; 84703; 85007; 85025; 85027; 85378; 87040; 93005; 94640; 94667; 94668; 94761; 96361; 96365; 96366; 96367; 96372; 96375; 96376; 99285; 99406; G0378; J1650; J2919; J3475

== ENCOUNTER 2025-05-04 18:36 | Emergency (ER) | payer OTHER, SELFPAY ==
[2025-05-04 18:42] VITALS: BP 149/94; PULSE 79; TEMP 36.8; O2SAT 100
--- NOTE | 2025-05-04 18:47 | ECG_ITS ---
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 Measurements Intervals Spring Rate: 77 P: 56 NH: 170 QRS: 65 QRSD: 90 T: 71 QT: 364 QTc: 396 Interpretive Statements 1100 Sinus rhythm 8102 Low QRS voltage in chest leads 9120 atypical ECG Compared to ECG 08/27/2024 16:57:19 Sinus tachycardia no longer present Indeterminate axis no longer present Electronically Signed On 05-05-2025 18:13:12 EDT by SAFIA NAVARRETE M.D.
--- OUTSIDE RECORDS SUMMARY | 2025-05-04 18:54 | XMS_ITS | CCD ---
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 Name Role Phone DR SHANIQUE VALERIO Primary Care Unavailable AMMY PAZ Admitting Unavailable AMMY PAZ Consulting Unavailable AMMY PAZ Attending Unavailable MARK OROZCO Consulting Unavailable MONSE CARRIZALES Consulting Unavailable DO Jose Carpio Emergency Provider NO FAMILY, PHYSICIAN Primary Care Provider Unava ilable Whitney Mane Primary Care Provider DELPHINE FERMIN Referring Unavailable WHITNEY MCCULLOUGH Primary Care Unavailable WHITNEY MCCULLOUGH Referring Unavailable WHITNEY MCCULLOUGH Primary Care Unavailable OUSMANE SOTO Referring Unavailabl e WHITNEY MCCULLOUGH Primary Care Unavailable DELPHINE FERMIN Referring Unavailable WHITNEY MCCULLOUGH Primary Care Unavailable OUSMANE SOTO Referring Unavailabl e WHITNEY MCCULLOUGH Primary Care Unavailable OUSMANE SOTO Attending Unavailabl e OUSMANE SOTO Attending Unavailabl e Fercho Maloney Attending Unavailab le Fercho Maloney Admitting Unavailab le NO FAMILY, PHYSICIAN Primary Care Unavailable Whitney Mane Primary Care Provider WHITNEY MCCULLOUGH Referring Unavailable WHITNEY MCCULLOUGH Primary Care Unavailable WHITNEY MCCULLOUGH Referring Unavailable WHITNEY MCCULLOUGH Primary Care Unavailable AUGUSTINE LANDON Attending Unavailable NO PCP, NO PCP Primary Care Unavailable NO PCP, NO PCP Primary Care Unavailable SHAMAR BROWN Attending Unavailable Allergies Allergy Classification Reported Allergen(s) Allergy Type Date of Onset Reaction(s) Facility (1 source) Silicone adhesive tape Propensity to adverse reactions to drug 3 [facility] (1 source) Adhesive agent; Translations: [ADHESIVE] Propensity to adverse reactions to drug (disorder) 3 [facility] Medications Current Medications Medication Drug Class(es) Dates Sig (Normalized) Sig (Original) [id number] 200 actuat albuterol 0.09 mg/actuat metered dose inhaler (1 source) beta2-Adrenergic Agonist Start: 05-29-2023 albuterol sulfate HFA (VENTOLIN HFA) 108 (90 Base) MCG/ACT inhaler 05/29/2023 Active 60 actuat formoterol fumarate 0.005 mg/actuat / mometasone furoate 0.2 mg/actuat metered dose inhaler (1 source) Corticosteroid, beta2-Adrenergic Agonist Start: 09-02-2024 take 2 puff(s) by inhalation in the morning mometasone-formote rol (DULERA) 200-5 MCG/ACT inhaler Indications: Chronic obstructive pulmonary disease, unspecified COPD type (HCC) Inhale 2 puffs into the lungs in the morning and 2 puffs in the evening. 13 g 09/02/2024 Active levoFLOXacin 750 mg oral tablet (1 source) Quinolone Antimicrobial Start: 08-29-2024 take 1 tablet by mouth once daily levoFLOXacin (LEVAQUIN) 750 MG tablet Take 1 tablet by mouth daily 08/29/2024 Active 24 hr nicotine 0.583 mg/hr transdermal system (3 sources) Cholinergic Nicotinic Agonist Start: 09-02-2024 End: 10-14-2024 apply 1 dose transdermal route once daily nicotine (NICODERM CQ) 14 MG/24HR Indications: Tobacco abuse Place 1 patch onto the skin daily 14 patch 2 09/02/2024 10/14/2024 Active Start: 09-02-2024 nicotine polac rilex (NICORETTE) 2 MG gum Indications: Tobacco abuse Take 1 each by mouth as needed for Smoking cessation 110 each 3 09/02/2024 Active Start: 04-08-2023 End: 05-20-2023 apply 1 dose [...] ABDOMINAL PAIN] Onset: 05-17-2022 Episodic Administrative/social admission (3 sources) Patient encounter status; Translations: [Persons encountering health services in other specified circumstances] 09-12-2022 Episodic Chronic obstructive pulmonary disease and bronchiectasis (1 source) Chronic obstructive lung disease; Translations: [Chronic obstructive pulmonary disease, unspecified] Onset: 07-24-2023 07-24-2023 Chronic Immunizations and screening for infectious disease (4 sources) Encounter for screening for human papillomavirus (HPV); Translations: [Encounter for screening for human papillomavirus (HPV)] Onset: 05-26-2023 Episodic Menstrual disorders (5 sources) Irregular menstruation, unspecified; Translations: [Irregular periods] Onset: 07-14-2023 07-25-2023 Chronic Mood disorders (1 source) Depressive disorder; Translations: [Depression] Onset: 03-18-2024 03-18-2024 Chronic Other female genital disorders (1 source) Abnormal uterine and vaginal bleeding, unspecified; Translations: [Abnormal uterine and vaginal bleeding, unspecified] Onset: 03-10-2025 Chronic Other female genital disorders (1 source) Vaginal bleeding Onset: 03-08-2025 Chronic Other nutritional; endocrine; and metabolic disorders (2 sources) Body mass index 30+ - obesity; Translations: [Body mass index (BMI) 33.0-33.9, adult] Onset: 04-08-2023 04-08-2023 Chronic Other screening for suspected conditions (not mental disorders or infectious disease) (2 sources) Encounter for screening mammogram for malignant neoplasm of breast; Translations: [Encounter for screening mammogram for malignant neoplasm of breast] Onset: 04-30-2023 Episodic Residual codes; unclassified (1 source) Obstructive sleep apnea syndrome; Translations: [Obstructive sleep apnea (adult) (pediatric)] Onset: 07-24-2023 07-24-2023 Chronic Residual codes; unclassified (1 source) Acquired absence of other specified parts of digestive tract; Translations: [ACQ ABSENCE OTH PART DIGESTV TRACT] Onset: 05-21-2022 Episodic Substance-related disorders (1 source) Nicotine dependence, cigarettes, uncomplicated; Translations: [NICOTINE DEPEND CIGARETTES UNCOMP] Onset: 05-21-2022 Chronic Unclassified (4 sources) BX; Translations: [BX] Onset: 07-25-2023 Unclassified (1 source) Mental Health Eval Onset: 03-08-2025 Past or Other Problems Problem Classification Problem Date Documented Da te Episodic/Chronic Epilepsy; convulsions (3 sources) Neurological finding; Translations: [Unspecified convulsions] Onset: 04-08-2023 04-08-2023 Episodic Other female genital disorders (1 source) Stenosis of cervix; Translations: [Stricture and stenosis of cervix uteri] Onset: 07-25-2023 07-25-2023 Episodic Schizophrenia and other psychotic disorders (1 source) Brief psychotic disorder; Translations: [Unspecified psychosis] Onset: 08-11-2023 08-18-2023 Episodic Results Test Name Value Interpretation Reference Range Facility [facility] 03-10-2025 aPTT Coag (Bld) [Time] 34 s Normal 26-[address] [facility] Comment on above: Performed By: #### P TT #### [facility] ([address] [address] VIR BASIC METABOLIC PANELon 02-16 Anion gap [Moles/Vol] 11 mmol/L Normal 5-15 [facility] Comment on above: Performed By: #### B MP #### [facility] ([address] [address] VIR Calcium [Mass/Vol] 8.6 mg/dL Normal 8.5-10.5 [facility] Comment on above: Performed By: #### B MP #### [facility] ([address] [address] VIR Chloride [Moles/Vol] 105 mmol/L Normal 98-109 [facility] Comment on above: Performed By: #### B MP #### [facility] ([facility]) [address] [place] [address]. [place] [address] VIR CO2 [Moles/Vol] 24 mmol/L Normal 22-32 [facility] Comment on above: Performed By: #### B MP #### [facility] ([facility]) [address] [place] [address]. [place] [address] VIR Creatinine [Mass/Vol] 0.83 mg/dL Normal 0.40-1.00 [facility] Comment on above: Result Comment: METH OD TRACEABLE TO IDMS STANDARD Performed By: #### B MP #### [facility] ([address] [place] [address] VIR GFR/1.73 sq M.predicted among non-blacks MDRD (S/P/Bld) [Vol rate/Area] 89 mL/min/{1.73_m2} Normal >=60 [facility] Comment on above: Result Comment: eGFR not reported due to non-numeric value for Creatinine. Reported eGFR is based on the CKD-EPI 2020 equation that does not use a race coefficient. Performed By: #### B MP #### [facility] ([address] [place] [address] VIR Glucose [Mass/Vol] 118 mg/dL High 65-99 [facility] Comment on above: Performed By: #### B MP #### [facility] ([address] [place] [address] VIR Potassium [Moles/Vol] 3.9 mmol/L Normal 3.5-5.0 [facility] Comment on above: Performed By: #### B MP #### [facility] ([address] [place] [address] VIR Sodium [Moles/Vol] 140 mmol/L Normal 134-146 [facility] Comment on above: Performed By: #### B MP #### [address] [address] VIR Urea nitrogen [Mass/Vol] 9 mg/dL Normal 5-23 [facility] Comment on above: Performed By: #### B MP #### [address] [address] VIR CBC WITH AUTO DIFFERENTIALon 03-10-2025 BASOPHILS ABSOLUTE COUNT (10*3/UL) BY AUTOMATED COUNT 0.1 10*3/uL Normal 0.0-0.2 [facility] Comment on above: Performed By: #### C BCA #### [address] [address] VIR BASOPHILS RELATIVE PERCENT BY AUTOMATED COUNT 0.5 % Normal [facility] Comment on above: Performed By: #### C BCA #### [address] [address] VIR CELLAVISION DIFFERENTIAL TYPE AUTOMATED DIFFERENTIAL Normal [facility] Comment on above: Performed By: #### C BCA #### [address] [address] VIR Eosinophils (Bld) [#/Vol] 0.1 10*3/uL Normal 0.0-0.4 [facility] Comment on above: Performed By: #### C BCA #### [address] [address] VIR EOSINOPHILS RELATIVE PERCENT BY AUTOMATED COUNT 0.9 % Normal [facility] Comment on above: Performed By: #### C BCA #### [address] [address] VIR Erythrocyte distribution width (RBC) [Ratio] 15.1 % High 11.5-15 [facility] Comment on above: Performed By: #### C BCA #### [address] [place] [address] VIR Hematocrit (Bld) [Volume fraction] 39.0 % Normal 35-47 [facility] Comment on above: Performed By: #### C BCA #### [facility] ([address] [address] VIR Hemoglobin (Bld) [Mass/Vol] 12.8 g/dL Normal 11.7-15.5 [facility] Comment on above: Performed By: #### C BCA #### [facility] ([address] [address] VIR LYMPHOCYTES ABSOLUTE COUNT (10*3/UL) BY AUTOMATED COUNT 2.1 10*3/uL Normal 1.0-3.5 [facility] Comment on above: Performed By: #### C BCA #### [facility] ([address] [address] VIR LYMPHOCYTES RELATIVE PERCENT BY AUTOMATED COUNT 13.9 % Normal [facility] Comment on above: Performed By: #### C BCA #### [facility] ([address] [address] VIR MCH (RBC) [Entitic mass] 27.0 pg Normal 27-34 [facility] Comment on above: Performed By: #### C BCA #### [facility] ([address] [address] VIR MCHC (RBC) [Mass/Vol] 32.9 g/dL Normal 32-36 [facility] Comment on above: Performed By: #### C BCA #### [facility] ([address] [address] VIR MCV (RBC) [Entitic vol] 82 fL Normal 80-100 [facility] Comment on above: Performed By: #### C BCA #### [facility] ([facility]) [address] [place] [address] VIR MONOCYTES ABSOLUTE COUNT (10*3/UL) BY AUTOMATED COUNT 1.3 10*3/uL High 0.0-0.9 [facility] Comment on above: Performed By: #### C BCA #### [facility] ([address] [place] [address] VIR MONOCYTES RELATIVE PERCENT BY AUTOMATED COUNT 8.5 % Normal [facility] Comment on above: Performed By: #### C BCA #### [facility] ([address] [place] [address] VIR NEUTROPHILS ABSOLUTE COUNT BY AUTOMATED COUNT 11.4 10*3/uL High 1.5-6.6 [facility] Comment on above: Performed By: #### C BCA #### [facility] ([address] [place] [address] VIR NEUTROPHILS RELATIVE PERCENT BY AUTOMATED COUNT 76.2 % Normal [facility] Comment on above: Performed By: #### C BCA #### [facility] ([address] [place] [address] VIR Platelet mean volume (Bld) [Entitic vol] 10.5 fL Normal 7-12 [facility] Comment on above: Performed By: #### C BCA #### [facility] ([address] [place] [address] VIR Platelets (Bld) [#/Vol] 232 10*3/uL Normal 150-450 [facility] Comment on above: Performed By: #### C BCA #### [facility] ([address] [place] [address] VIR RBC COUNT 4.76 X10E12/L Normal 3.8-5.2 [facility] Comment on above: Performed By: #### C BCA #### [facility] ([address] [place] [address] VIR WBC (Bld) [#/Vol] 14.9 10*3/uL High 4-11 [facility] Comment on above: Performed By: #### C BCA #### [facility] ([address] [address] VIR HCG-BETA, SERUMon 03-10-2025 SERUM B HCG,3RD I.S. <^5 Normal [facility] Comment on above: Order Comment: WEEKS (SINCE LMP) MIU/mL 3 WEEKS 5 - 50 4 WEEKS 5 - 426 5 WEEKS 18 - 7,340 6 WEEKS 1,080 - 56,500 7-8 WEEKS 7,650 - 229,000 9-12 WEEKS 25,700 - 288,000 13-16 WEEKS 13,300 - 254,000 17-24 WEEKS 4,060 - 165,400 25-40 WEEKS 3,640 - 117,000 MALES AND NON- FEMALES - <5 MIU/mL This test has been FDA approved for use in only. Elevated levels are not necessarily diagnostic for trophoblastic or nontrophoblastic neoplasms. Performed By: #### H CG #### [facility] ([address] [address] VIR PROTIME AND INRon 03-10-2025 INR 1.0 Normal 0.9-1.2 [facility] Comment on above: Performed By: #### P INR #### [facility] ([address] [address] VIR PT Coag (PPP) [Time] 11.7 s Normal 9.8-13.2 [facility] Comment on above: Performed By: #### P INR #### [facility] ([address] [address] VIR DBT Breast - bilateral scree curtis 01-30-2025 No mammographic evidence of malignancy BIRADS: BIRADS - CATEGORY 1 Negative. Normal interval follow-up is recommended in 12 months. OVERALL ASSESSMENT - NEGATIVE A letter of notification will be sent to the patient regarding the results. [employer] recommends annual mammograms for women 40 years and older. Performing Facility: [facility] [address] [facility]. [place]. [address] [address] [facility] EXAMINATION: SCREENING DIGITAL BILATERAL MAMMOGRAM WITH TOMOSYNTHESIS, 09/16/2024 TECHNIQUE: Screening mammography was performed with tomosynthesis including MLO and CC views of the bilateral breasts. Computer aided detection was used for the interpretation of this exam. COMPARISON: April 30, 2023 HISTORY: Screening. FINDINGS: There are scattered areas of fibroglandular density. There is no dominant mass, architectural distortion or concerning grouping of microcalcification in either breast. [facility] Radiology Study observation (narrative) Kayla [employer] [facility] DBT Breast - bilateral scree ningOrdered By: Edmond Smith on 09-16-2024 Kayla [employer] [email or web address] Work Phone: [facility] IRAM DIGITAL SCREEN BILA TERALon 09-16-2024 [facility] IRAM DIGITAL SCREEN BILATERAL EXAMINATION: SCREENING DIGITAL BILATERAL MAMMOGRAM WITH TOMOSYNTHESIS, 09/16/2024 TECHNIQUE: Screening mammography was performed with tomosynthesis including MLO and CC views of the bilateral breasts. Computer aided detection was used for the interpretation of this exam. COMPARISON: April 30, 2023 HISTORY: Screening. FINDINGS: There are scattered areas of fibroglandular density. There is no dominant mass, architectural distortion or concerning grouping of microcalcification in either breast. IMPRESSION: No mammographic evidence of malignancy BIRADS: BIRADS - CATEGORY 1 Negative. Normal interval follow-up is recommended in 12 months. OVERALL ASSESSMENT - NEGATIVE A letter of notification will be sent to the patient regarding the results. [employer] recommends annual mammograms for women 40 years and older. Performing Facility: [facility] [address] [facility]. [place]. [address] [address] Interpreted by: Edmond Smith DO Signed by: Edmond Smith DO 09/16/24 Final result Normal [facility] Surgical Pathology Reporton 07-25-2023 Surgical Pathology Report (NOTE) Path Number: [id number] -- Diagnosis -- UTERINE CAVITY, BIOPSY: - BENIGN ENDOCERVICAL TISSUE, SCANT SQUAMOUS EPITHELIUM AND MUCUS. - NO DIAGNOSTIC ENDOMETRIAL TISSUE IS IDENTIFIED. - NEGATIVE FOR ATYPIA AND MALIGNANCY. Marvin Mcneil M.D. Electronically Signed [facility]/07/29/2023 Clinical Information Pre-Op Diagnosis: IRREGULAR MENSES; SEVERE DYSMENORRHEA; LEFT OVARIAN CYST Operative Findings: ENDOMETRIUM kb Source of Specimen A: ENDOMETRIUM BIOPSY Gross Description THALIA RENDON BX Received in formalin is cloudy mason mucous, 2.8 x 2.5 x 0.2 cm in aggregate. Entirely 1cs. jj tm SLS/kb2:07/28/2023 Microscopic Description The specimen consists of detached fragments of benign endocervical epithelium and stroma, scant squamous epithelium, and intermixed mucus. No diagnostic endometrial tissue is identified. There is no evidence of atypia or malignancy. Processing Lab: [address] [address] Interpretation Performed at [address] [address] SURGICAL PATHOLOGY CONSULTATION Patient Name: KIERA LANDAVERDE [facility] Rec: [id number] [facility] ANATOMIC PATHOLOGY [address] [place] [address]. [place], [place] [address] Normal [facility] APTTon 07-14-2023 aPTT Coag (Bld) [Time] 29.9 s Normal 24.0-36.0 [facility] Comment on above: Result Comment: IV Heparin Therapy Range: 62.0-94.0 Performed By: #### B HCG, CDP, PT, TSHX, PTT #### [facility] [address] [place], [place] [id number] Special Delivery Carrier: Pierre Cowart DO #### E2, FSH, LH #### [facility] [employer] [address] [place] [address] Special Delivery Carrier: Robert Neri MD CBC with Diffon 07-14-2023 Abs. Basophil 0.10 k/uL Normal 0.0-0.2 [facility] Comment on above: Performed By: #### B HCG, CDP, PT, TSHX, PTT #### [facility] [address] [place] [address] Special Delivery Carrier: Pierre Cowart DO #### E2, FSH, LH #### [address] [address] Special Delivery Carrier: Robert Neri MD Abs.Neutrophil (Seg) 6.70 k/uL Normal 1.3-9.1 [facility] Comment on above: Performed By: #### B HCG, CDP, PT, TSHX, PTT #### [facility] [address] [place] [address] Special Delivery Carrier: Pierre Cowart DO #### E2, FSH, LH #### [address] [address] Special Delivery Carrier: Robert Neri MD Basophils/100 WBC (Bld) 1 % Normal 0-2 [facility] Comment on above: Performed By: #### B HCG, CDP, PT, TSHX, PTT #### [facility] [address] [place] [address] Special Delivery Carrier: Pierre Cowart DO #### E2, FSH, LH #### [address] [address] Special Delivery Carrier: Robert Neri MD Eosinophils (Bld) [#/Vol] 0.10 10*3/uL Normal 0.0-0.4 [facility] Comment on above: Performed By: #### B HCG, CDP, PT, TSHX, PTT #### [facility] [address] [place] [address] Special Delivery Carrier: Pierre Cowart DO #### E2, FSH, LH #### [address] [phone] Special Delivery Carrier: Robert Neri MD Eosinophils/100 WBC (Bld) 1 % Normal 0-4 [facility] Comment on above: Performed By: #### B HCG, CDP, PT, TSHX, PTT #### [facility] [address] [place] [address] Special Delivery Carrier: Pierre Cowart DO #### E2, FSH, LH #### [address] [phone] Special Delivery Carrier: Robert Neri MD Erythrocyte distribution width (RBC) [Ratio] 14.4 % Normal 11.5-14.9 [facility] Comment on above: Performed By: #### B HCG, CDP, PT, TSHX, PTT #### [facility] [place] [address] Special Delivery Carrier: Pierre Cowart DO #### E2, FSH, LH #### [address] [address] Special Delivery Carrier: Robert Neri MD Hematocrit (Bld) [Volume fraction] 43.1 % Normal 36-46 [facility] Comment on above: Performed By: #### B HCG, CDP, PT, TSHX, PTT #### [facility] [address] [place] [address] Special Delivery Carrier: Pierre Cowart DO #### E2, FSH, LH #### [address] [phone] Special Delivery Carrier: Robert Neri MD Hemoglobin (Bld) [Mass/Vol] 14.1 g/dL Normal 12.0-16.0 [facility] Comment on above: Performed By: #### B HCG, CDP, PT, TSHX, PTT #### [facility] [address] [place] [address] Special Delivery Carrier: Pierre Cowart DO #### E2, FSH, LH #### [address] [address] Special Delivery Carrier: Robert Neri MD Lymphocytes (Bld) [#/Vol] 1.80 10*3/uL Normal 1.0-4.8 [facility] Comment on above: Performed By: #### B HCG, CDP, PT, TSHX, PTT #### [facility] [place] [address] Special Delivery Carrier: Pierre Cowart DO #### E2, FSH, LH #### [address] [address] Special Delivery Carrier: Robert Neri MD Lymphocytes/100 WBC (Bld) 19 % Low 24-44 [facility] Comment on above: Performed By: #### B HCG, CDP, PT, TSHX, PTT #### [facility] [address] [place] [address] Special Delivery Carrier: Pierre Cowart DO #### E2, FSH, LH #### [address] [address] Special Delivery Carrier: Robert Neri MD MCH (RBC) [Entitic mass] 27.8 pg Normal 26-34 [facility] Comment on above: Performed By: #### B HCG, CDP, PT, TSHX, PTT #### [facility] [address] [place] [address] Special Delivery Carrier: Pierre Cowart DO #### E2, FSH, LH #### [address] [address] Special Delivery Carrier: Robert Neri MD MCHC (RBC) [Mass/Vol] 32.6 g/dL Normal 31-37 [facility] Comment on above: Performed By: #### B HCG, CDP, PT, TSHX, PTT #### [facility] [address] [place] [address] Special Delivery Carrier: Pierre Cowart DO #### E2, FSH, LH #### [address] [address] Special Delivery Carrier: Robert Neri MD MCV (RBC) [Entitic vol] 85.2 fL Normal 80-100 [facility] Comment on above: Performed By: #### B HCG, CDP, PT, TSHX, PTT #### [facility] [address] [place] [address] Special Delivery Carrier: Pierre Cowart DO #### E2, FSH, LH #### [address] [address] Special Delivery Carrier: Robert Neri MD Monocytes (Bld) [#/Vol] 1.00 10*3/uL Normal 0.1-1.3 [facility] Comment on above: Performed By: #### B HCG, CDP, PT, TSHX, PTT #### [facility] [address] [place] [address] Special Delivery Carrier: Pierre Cowart DO #### E2, FSH, LH #### [address] [address] Special Delivery Carrier: Robert Neri MD Monocytes/100 WBC (Bld) 11 % High 1-7 [facility] Comment on above: Performed By: #### B HCG, CDP, PT, TSHX, PTT #### [facility] [address] [place] [address] Special Delivery Carrier: Pierre Cowart DO #### E2, FSH, LH #### [address] [place] [address] Special Delivery Carrier: Robert Neri MD Neutrophil (Seg) 68 % High 36-66 [facility] Comment on above: Performed By: #### B HCG, CDP, PT, TSHX, PTT #### [facility] [address] [place] [address] Special Delivery Carrier: Pierre Cowart DO #### E2, FSH, LH #### [address] [address] Special Delivery Carrier: Robert Neri MD Platelet mean volume (Bld) [Entitic vol] 10.3 fL Normal 6.0-12.0 [facility] Comment on above: Performed By: #### B HCG, CDP, PT, TSHX, PTT #### [facility] [place] [address] Special Delivery Carrier: Pierre Cowart DO #### E2, FSH, LH #### [address] [address] Special Delivery Carrier: Robert Neri MD Platelets (Bld) [#/Vol] 226 10*3/uL Normal 150-450 [facility] Comment on above: Performed By: #### B HCG, CDP, PT, TSHX, PTT #### [facility] [place] [address] Special Delivery Carrier: Pierre Cowart DO #### E2, FSH, LH #### [address] [address] Special Delivery Carrier: Robert Neri MD RBC (Bld) [#/Vol] 5.06 10*6/uL Normal 4.0-5.2 [facility] Comment on above: Performed By: #### B HCG, CDP, PT, TSHX, PTT #### [facility] [address] [place] [address] Special Delivery Carrier: Pierre Cowart DO #### E2, FSH, LH #### [facility] [employer] [facility] [place] [address] Special Delivery Carrier: Robert Neri MD WBC (Bld) [#/Vol] 9.7 10*3/uL Normal 3.5-11.0 [facility] Comment on above: Performed By: #### B HCG, CDP, PT, TSHX, PTT #### [facility] [address] [place] [address] Special Delivery Carrier: Pierre Cowart DO #### E2, FSH, LH #### [facility] [employer] [facility] [place] [address] Special Delivery Carrier: Robert Neri MD Estradiolon 07-14-2023 Estradiol 107.0 pg/mL Normal [facility] Comment on above: Result Comment: FEMALES: Normally menstruating Luteal phase 60-232 Follicular phase 31-90 Midcycle phase 60-533 Postmenopausal (untreated) <138 Fulvestrant treatment will show an increased estradiol concentration with this methodology. Alternate methodologies are available upon request. Performed By: #### B HCG, CDP, PT, TSHX, PTT #### [facility] [address] [place] [address] Special Delivery Carrier: Pierre Cowart DO #### E2, FSH, LH #### [facility] [employer] [address] [place] [address] Special Delivery Carrier: Robert Neri MD Follicle Stim. Hormon 2022 Follicle Stim. Horm 7.7 mIU/mL Normal [facility] Comment on above: Result Comment: Refe rence Range: Male: 1.5-12.4 Ovulating Female: Follicular Phase 3.5-12.5 Ovulation Phase 4.7-21.5 Luteal Phase 1.7-7.7 Postmenopausal Female: 25.8-134.8 Performed By: #### B HCG, CDP, PT, TSHX, PTT #### [facility] [address] [place] [address] Special Delivery Carrier: Pierre Cowart DO #### E2, FSH, LH #### [facility] [employer] [facility] [place] [address] Special Delivery Carrier: Robert Neri MD HCG, Quanton 07-14-2023 HCG, Quant <1.0 Normal <5 [facility] Comment on above: Result Comment: Non-preg premeno <=5 Postmeno <=8 Male <=3 If HCG results do not concur with clinical observations, additional testing to confirm results is recommended. Performed By: #### B HCG, CDP, PT, TSHX, PTT #### [facility] [address] [place] [address] Special Delivery Carrier: Pierre Cowart DO #### E2, FSH, LH #### [address] [address] Special Delivery Carrier: Robert Neri MD Luteinizing Hormoneon 2022 Luteinizing Hormone 7.0 mIU/mL Normal 1.7-8.6 [facility] Comment on above: Result Comment: Refe rence Range: Male: 1.7-8.6 Ovulating Female: Follicular Phase 2.4-12.6 Ovulation Phase 14.0-95.6 Luteal Phase 1.0-11.4 Postmenopausal Female: 7.7-58.5 Performed By: #### B HCG, CDP, PT, TSHX, PTT #### [facility] [address] [place] [address] Special Delivery Carrier: Pierre Cowart DO #### E2, FSH, LH #### [address] [place], [place] [id number] Special Delivery Carrier: Robert Neri MD PTon 07-14-2023 INR Coag (PPP) [Relative time] 1.0 {INR} Normal [facility] Comment on above: Result Comment: Therapeutic Range: Moderate Anticoagulant Intensity: INR = 2.0-3.0 High Anticoagulant Intensity: INR = 2.5-3.5 Performed By: #### B HCG, CDP, PT, TSHX, PTT #### [facility] [address] [facility] [place] [address] Special Delivery Carrier: Pierre Cowart DO #### E2, FSH, LH #### [address] [address] Special Delivery Carrier: Robert Neri MD PT Coag (PPP) [Time] 13.6 s Normal 11.8-14.6 [facility] Comment on above: Performed By: #### B HCG, CDP, PT, TSHX, PTT #### [facility] [place] [address] Special Delivery Carrier: Pierre Cowart DO #### E2, FSH, LH #### [address] [address] Special Delivery Carrier: Robert Neri MD TSH w/reflex to FT4on 2022 Thyroid Stim. Horm. 3.02 uIU/mL Normal 0.30-5.00 [facility] Comment on above: Performed By: #### B HCG, CDP, PT, TSHX, PTT #### [facility] [place] [address] Special Delivery Carrier: Pierre Cowart DO #### E2, FSH, LH #### [address] [address] Special Delivery Carrier: Robert Nrei MD US PELVIS COMPLETEon 023 US PELVIS COMPLETE Table formatting fro m the original result was not included. GYNECOLOGY ULTRASOUND REPORT [facility] Obstetrics AND Gynecology [facility]; [address] [place] [address] mn Fax 07/14/2023 Contact Serial #: [id number] Kiera Landaverde Date of : 1980 Age: 42 y.o. The ultrasound images were reviewed. Please see the attached ultrasound report. Industrial Maintenance Mechanic: Demetria Anthony RDMS Assessment: Kiera Landaverde is [...] Ousmane Soto DO 07/14/23 Final result Normal [facility] HPV DNA High Riskon 05-28-20 23 HPV Interp Normal [facility] Comment on above: Result Comment: This test [...] purposes. Performed By: #### H PVH #### [address] [address] Special Delivery Carrier: Robert Neri MD HPV Type 16 Not detected Normal [facility] Comment on above: Performed By: #### H PVH #### [address] [address] Special Delivery Carrier: Robert Neri MD HPV Type 18 Not detected Normal [facility] Comment on above: Performed By: #### H PVH #### [address] [address] Special Delivery Carrier: Robert Neri MD Other High Risk HPV Not detected Normal [facility] Comment on above: Performed By: #### H PVH #### [address] [address] Special Delivery Carrier: Robert Neri MD HPV DNA High Riskon 05-27-20 23 HPV Sample .THIN PREP [facility] Comment on above: Performed By: #### H PVH #### [address] [address] Special Delivery Carrier: Robert Neri MD Source CERVICAL MATERIAL Normal [facility] Comment on above: Performed By: #### H PVH #### [facility] [employer] [address] [place] [address] Special Delivery Carrier: Robert Neri MD Cytology Reporton 05-26-2023 Cytology report Cyto stain.thin prep Doc (Cvx/Vag) (NOTE) Path Number: [id number] DIAGNOSIS Imaged ThinPrep Pap - Cervical (1 monolayer slide): Specimen Adequacy: Satisfactory for evaluation. - Endocervical/transfor mation zone component present. Descriptive Diagnosis: Negative for intraepithelial lesion or malignancy. Cytotech Screener: EY Electronically Signed Out Ambar REYES(ASCP) 06/04/2023 Procedure/Addendum HPV Procedure Report Date Ordered: 05/27/2023 [...] at [facility], [address] [place], [place] [id number] . Source of Specimen: A: Imaged ThinPrep Pap - Cervical (1 monolayer slide) HPV Reflex?.............. 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 [place], [place] [address] Normal [facility] IRAM DIGITAL SCREEN SELF REFERRAL W OR WO CAD BILATERALon 05-02-2023 [facility] IRAM DIGITAL SCREEN SELF REFERRAL W [...] to the patient regarding the results. [employer] recommends annual mammograms for women 40 years and older. Interpreted by: Josh Mitchell MD Signed by: Josh Mitchell MD 05/02/23 Final result Normal [facility] No mammographic evidence of malignancy. BI-RADS 1 BIRADS: BIRADS - CATEGORY 1 Negative, no evidence of malignancy. Normal interval follow-up is recommended in 12 months. OVERALL ASSESSMENT - NEGATIVE A letter of notification will be sent to the patient regarding the results. [employer] recommends annual mammograms for women 40 years and older[address] [facility] RIS CONSOLIDATED EXAMINATION: SCREENING DIGITAL BILATERAL MAMMOGRAM [...] area of architectural distortion. [facility] RIS CONSOLIDATED [facility] IRAM DIGITAL SCREEN SELF REFERRAL W OR WO CAD BILATERALOrdered By: Josh Mitchell on 05-02-2023 [email or web address] Work Phone: [facility] IRAM DIGITAL SCREEN SELF REFERRAL W OR WO CAD BILATERALon 04-30-2023 Radiology Study observation (narrative) [facility] Basophils Auto (Bld) [#/Vol] Ordered By: Jose Carpio on 09-12-2022 Basophils (Bld) [#/Vol] 0.1 10*3/uL 0.0-0.2 [facility] Basophils/100 WBC Auto (Bld) Ordered By: Jose Carpio on 09-12-2022 Basophils/100 WBC (Bld) 0.8 % . [facility] Body fluid albumin measureme nt (mass/volume)Ordered By: Jose Carpio on 09-12-2022 Albumin (Body fld) [Mass/Vol] 3.5 g/dL 3.2-5.5 [facility] Creatinine and Glomerular fi ltration rate.predicted panel (S/P/Bld)Ordered By: Jose Carpio on 09-12-2022 Creatinine [Mass/Vol] 0.80 mg/dL 0.44-1.[address] [facility] Eosinophils Auto (Bld) [#/Vo l]Ordered By: Jose Carpio on 09-12-2022 Eosinophils (Bld) [#/Vol] 0.2 10*3/uL 0.0-0.45 [facility] Eosinophils/100 WBC Auto (Bl d)Ordered By: Jose Carpio on 09-12-2022 Eosinophils/100 WBC (Bld) 1.5 % . [facility] Erythrocyte distribution wid th Auto (RBC) [Ratio]Ordered By: Jose Carpio on 09-12-2022 Erythrocyte distribution width (RBC) [Ratio] 14.7 % 11.9-15.3 [facility] Estimated glomerular filtrat ion rate (GFR) non- AmericanOrdered By: Jose Carpio on 09-12-2022 GFR/1.73 sq M.predicted among non-blacks MDRD (S/P/Bld) [Vol rate/Area] > 60 mL/Min [facility] Globulin Calc (S) [Mass/Vol] Ordered By: Jose Carpio on 09-12-2022 Globulin (S) [Mass/Vol] 2.2 g/dL [facility] Hematocrit Auto (Bld) [Volum e fraction]Ordered By: Jose Carpio on 09-12-2022 Hematocrit (Bld) [Volume fraction] 42.2 % 34.0-46.4 [facility] Hemoglobin [Mass/volume] in BloodOrdered By: Jose Carpio on 09-12-2022 Hemoglobin (Bld) [Mass/Vol] 13.7 g/dL 11.8-15.4 [facility] Leukocytes [#/volume] correc carlos enrique for nucleated erythrocytes in Blood by Automated counOrdered By: Jose Carpio on 09-12-2022 WBC corrected for nucl RBC Auto (Bld) [#/Vol] 11.0 10*3/uL 3.8-11.6 [facility] Lymphocytes Auto (Bld) [#/Vo l]Ordered By: Jose Carpio on 09-12-2022 Lymphocytes (Bld) [#/Vol] 2.6 10*3/uL 1.00-4.8 [facility] Lymphocytes/100 WBC Auto (Bl d)Ordered By: Jose Carpio on 09-12-2022 Lymphocytes/100 WBC (Bld) 23.5 % . [facility] MCH Auto (RBC) [Entitic mass ]Ordered By: Jose Carpio on 09-12-2022 MCH (RBC) [Entitic mass] 27.3 pg 24.7-34.3 [facility] MCHC Auto (RBC) [Mass/Vol]Or dered By: Jose Carpio on 09-12-2022 MCHC (RBC) [Mass/Vol] 32.5 g/dL 32.0-35.0 [facility] MCV Auto (RBC) [Entitic vol] Ordered By: Jose Carpio on 09-12-2022 MCV (RBC) [Entitic vol] 84.2 fL 80-100 [facility] Monocyte distribution width [Entitic volume] in Blood by AutomatedOrdered By: Jose Carpio on 09-12-2022 Monocyte distribution width Auto (Bld) [Entitic vol] 17.69 % 0.00-20.00 [facility] Monocytes Auto (Bld) [#/Vol] Ordered By: Jose Carpio on 09-12-2022 Monocytes (Bld) [#/Vol] 1.0 10*3/uL 0.0-0.8 [facility] Monocytes/100 WBC Auto (Bld) Ordered By: Jose Carpio on 09-12-2022 Monocytes/100 WBC (Bld) 9.2 % . [facility] Neutrophils Auto (Bld) [#/Vo l]Ordered By: Jose Carpio on 09-12-2022 Neutrophils (Bld) [#/Vol] 7.1 10*3/uL 1.8-7.7 [facility] Neutrophils/100 WBC Auto (Bl d)Ordered By: Jose Carpio on 09-12-2022 Neutrophils/100 WBC (Bld) 65.0 % . [facility] No Panel InformationOrdered By: Jose Carpio on 09-12-2022 Estimated GFR () > 60 mL/Min [facility] Comment on above: GFR estimated refere nce range: According to KDOQI guidelines, <60 ml/min/1.73m2 is sufficient to diagnose a patient with chronic kidney disease. Pharmacy Creatinine Clearance (Chem 89.78 [facility] Nucleated erythrocytes [Pres ence] in Blood by Automated countOrdered By: Jose Carpio on 09-12-2022 Nucleated RBC Auto Ql (Bld) 0.2 /100{WBC} 0-0.5 [facility] Platelet mean volume Auto (B ld) [Entitic vol]Ordered By: Jose Carpio on 09-12-2022 Platelet mean volume (Bld) [Entitic vol] 10.3 fL 6.3-10.7 [facility] Platelets Auto (Bld) [#/Vol] Ordered By: Jose Carpio on 09-12-2022 Platelets (Bld) [#/Vol] 237 10*3/uL 150-450 [facility] Protein [Mass/volume] in Ser um or PlasmaOrdered By: Jose Carpio on 09-12-2022 Protein [Mass/Vol] 5.7 g/dL 6.1-7.9 [facility] RBC Auto (Bld) [#/Vol]Ordere d By: Jose Carpio on 09-12-2022 RBC (Bld) [#/Vol] 5.01 10*6/uL 3.60-5.00 [facility] Serum or plasma alanine enriquez otransferase measurement without P-5'-P (enzymatic activiOrdered By: Jose Carpio on 09-12-2022 ALT No additional P-5'-P [Catalytic activity/Vol] 20 U/L 10-60 [facility] Serum or plasma albumin/glob ulin mass ratioOrdered By: Jose Carpio on 09-12-2022 Albumin/Globulin [Mass ratio] 1.6 {ratio} [facility] Serum or plasma alkaline radha sphatase measurement (enzymatic activity/volume)Ordered By: Jose Carpio on 09-12-2022 ALP [Catalytic activity/Vol] 69 U/L 32-92 [facility] Serum or plasma anion gap de terminationOrdered By: Jose Carpio on 09-12-2022 Anion gap [Moles/Vol] 11.2 mmol/L 6.0-15.0 [facility] Serum or plasma aspartate am inotransferase measurement (enzymatic activity/volume)Ordered By: Jose Carpio on 09-12-2022 AST [Catalytic activity/Vol] 14 U/L 10-42 [facility] Serum or plasma calcium bouchra urement (mass/volume)Ordered By: Jose Carpio on 09-12-2022 Calcium [Mass/Vol] 8.9 mg/dL 8.2-10.2 [facility] Serum or plasma chloride seferino surement (moles/volume)Ordered By: Jose Carpio on 09-12-2022 Chloride [Moles/Vol] 103 mmol/L 95-114 [facility] Serum or plasma ethanol bouchra urement (mass/volume)Ordered By: Jose Carpio on 09-12-2022 Ethanol [Mass/Vol] mg/dL [facility] Ethanol [Mass/Vol] TNP [facility] Comment on above: Test not performed Serum or plasma glucose bouchra urement (mass/volume)Ordered By: Jose Carpio on 09-12-2022 Glucose [Mass/Vol] 134 mg/dL 70-100 [facility] Comment on above: ADA recommended refe rence rangeRandom Glucose Reference Range is dependent on time and content of last meal. Glucose of more than 200 mg/dL in a nonstressed, ambulatory subject supports the diagnosis of Diabetes Mellitus. Serum or plasma potassium me asurement (moles/volume)Ordered By: Jose Carpio on 09-12-2022 Potassium [Moles/Vol] 3.7 mmol/L 3.5-5.[address] [facility] Serum or plasma sodium measu rement (moles/volume)Ordered By: Jose Carpio on 09-12-2022 Sodium [Moles/Vol] 137 mmol/L 136-146 [facility] Serum or plasma total biliru bin measurement (mass/volume)Ordered By: Jose Carpio on 09-12-2022 Bilirubin [Mass/Vol] 0.2 mg/dL 0.3-1.2 [facility] Serum or plasma total carbon dioxide measurement (moles/volume)Ordered By: Jose Carpio on 09-12-2022 CO2 [Moles/Vol] 26.5 mmol/L 22.0-30.0 [facility] Serum or plasma urea nitroge n measurement (mass/volume)Ordered By: Jose Carpio on 09-12-2022 Urea nitrogen [Mass/Vol] 6 mg/dL 9-23 [facility] WBC Auto (Bld) [#/Vol]Ordere d By: Jose Carpio on 09-12-2022 WBC (Bld) [#/Vol] 11.0 10*3/uL 3.8-11.6 [facility] AMYLASEon 05-18-2022 Amylase [Catalytic activity/Vol] 44 U/L Normal 25-115 [facility] Comment on above: Performed By: #### C MP, LIPA, CMADM, JHONY #### [facility] [address] [address] [address] Desean Ward CARDIAC HELEN ADMITon 022 CK [Catalytic activity/Vol] 51 U/L Normal 26-192 [facility] Comment on above: Performed By: #### C MP, LIPA, CMADM, JHONY #### [facility] [address] [place] [address] Dr. Desean Ward CK.MB [Mass/Vol] 1.15 ng/mL Normal <=3.60 [facility] Comment on above: Performed By: #### C MP, LIPA, CMADM, JHONY #### [facility] [address] [place] [address] Dr. Desean Ward HSTROP <4.0 Normal 4.0-51.3 [facility] Comment on above: Result Comment: CUT- OFF POINTS HAVE BEEN ESTABLISHED BASED ON THE FOURTH UNIVERSAL DEFINITIONS OF MYOCARDIAL INFARCTION. THE UPPER REFERENCE LIMIT (URL) OF TROPONIN, DEFINED THE 99TH PERCENTILE OF cTnI DISTRIBUTION IN A REFERENCE POPULATION, HAS BEEN CONFIRMED THE DECISION THRESHOLD FOR ID DIAGNOSIS. Performed By: #### C MP, LIPA, CMADM, JHONY #### [facility] [address] [place] [address] Dr. Desean Ward ESTEFANY 38 ng/mL Normal 9-82 [facility] Comment on above: Performed By: #### C MP, LIPA, CMADM, JHONY #### [facility] [address] [place] [address] Dr. Desean Ward CBC AUTO DIFFon 05-18-2022 BASO # 0.1 103/ul Normal 0.0-0.1 [facility] Comment on above: Performed By: #### C BC #### [facility] [address] [place] [address] Dr. Desean Ward Basophils/100 WBC (Bld) 0.8 % Normal 0.2-2.0 [facility] Comment on above: Performed By: #### C BC #### [facility] [address] [place] [address] Dr. Desean Ward EO # 0.2 103/ul Normal 0.0-0.7 [facility] Comment on above: Performed By: #### C BC #### [facility] [address] [place] [address] Dr. Desean Ward Eosinophils/100 WBC (Bld) 1.8 % Normal 0.9-7.0 [facility] Comment on above: Performed By: #### C BC #### [facility] [address] [place] [address] Dr. Desean Ward Erythrocyte distribution width (RBC) [Ratio] 14.3 % Normal 11.0-15.0 [facility] Comment on above: Performed By: #### C BC #### [facility] [address] [place] [address] Dr. Desean Ward Hematocrit (Bld) [Volume fraction] 43.5 % Normal 36.0-48.0 [facility] Comment on above: Performed By: #### C BC #### [facility] [address] [place] [address] Dr. Desean Ward Hemoglobin (Bld) [Mass/Vol] 13.8 g/dL Normal 12.0-16.0 [facility] Comment on above: Performed By: #### C BC #### [facility] [address] [place] [address] Dr. Desean Ward IG # 0.04 10e3/ul Critically high 0.00-0.03 [facility] Comment on above: Performed By: #### C BC #### [facility] [address] [place] [address] Dr. Desean Ward IG % 0.3 % Normal 0.0-0.5 [facility] Comment on above: Performed By: #### C BC #### [facility] [address] [place] [address] Dr. Desean Ward LYMPH # 3.2 103/ul Normal 1.2-3.8 [facility] Comment on above: Performed By: #### C BC #### [facility] [address] [place] [address] Dr. Desean Ward Lymphocytes/100 WBC (Bld) 24.5 % Normal 20.5-60.0 [facility] Comment on above: Performed By: #### C BC #### [facility] [address] [place] [address] Dr. Desean Ward MANUAL DIFF REQ NO Normal [facility] Comment on above: Performed By: #### C BC #### [facility] [address] [place] [address] Dr. Desean Ward MCH (RBC) [Entitic mass] 27.3 pg Normal 26.7-34.0 [facility] Comment on above: Performed By: #### C BC #### [facility] [address] [place] [address] Dr. Desean Ward MCHC (RBC) [Mass/Vol] 31.7 g/dL Normal 29.9-35.2 [facility] Comment on above: Performed By: #### C BC #### [facility] [address] [place] [address] Dr. Desean Ward MCV (RBC) [Entitic vol] 86.1 fL Normal 81.0-99.0 [facility] Comment on above: Performed By: #### C BC #### [facility] [address] [place] [address] Dr. Desean Ward MONO # 1.1 103/ul Critically high 0.3-0.8 [facility] Comment on above: Performed By: #### C BC #### [facility] [address] [place] [address] Dr. Desean Ward Monocytes/100 WBC (Bld) 8.6 % Normal 1.7-12.0 [facility] Comment on above: Performed By: #### C BC #### [facility] [address] [place] [address] Dr. Desean Ward NEUT # 8.5 103/ul Critically high 1.4-6.5 [facility] Comment on above: Performed By: #### C BC #### [facility] [address] [place] [address] Dr. Desean Ward Neutrophils/100 WBC (Bld) 64.0 % Normal 43.0-75.0 [facility] Comment on above: Performed By: #### C BC #### [facility] [address] [place] [address] Dr. Desean Ward Platelet mean volume (Bld) [Entitic vol] 11.3 fL Normal 9.5-13.5 [facility] Comment on above: Performed By: #### C BC #### [facility] [address] [address] [address] Desean Ward PLT 294 103/ul Normal 150-450 [facility] Comment on above: Performed By: #### C BC #### [facility] [address] [address] [address] Desean Ward RBC 5.05 106/ul Normal 4.20-5.40 [facility] Comment on above: Performed By: #### C BC #### [facility] [address] [address] [address] Desean Ward WBC 13.2 103/ul Critically high 4.0-11.0 [facility] Comment on above: Performed By: #### C BC #### [facility] [address] [place] [address] ABD/PELV W CONon 05-18-20 CT ABD/PELV W CON CT ABDOMEN AND PELVI S WITH CONTRAST: INDICATION: GENERALIZED ABDOMINAL PAIN. COMPARISON: [...] MARK OROZCO Date: 2022-05-18 00:06 Normal [facility] D-DIMERon 05-18-2022 D-DIMER 0.47 mg/L FEU Normal <=0.59 [facility] Comment on above: Performed By: #### D DIM #### [facility] [address] [place] [address] Dr. Desean Ward D-DIMER COMMENTS SEE BELOW Normal [facility] Comment on above: Result Comment: Incr [...] hospitalization. Performed By: #### D DIM #### [facility] [address] [place], [place] [address] Dr. Desean Ward ER URINE PROFILEon 2 Bilirubin Ql (U) Negative Normal NEGATIVE [facility] Comment on above: Performed By: #### E RUR, PREGU #### [facility] [address] [place] [address] Dr. Desean Ward Clarity (U) CLEAR Normal CLEAR [facility] Comment on above: Performed By: #### E RUR, PREGU #### [facility] [address] [place] [address] Dr. Desean Ward Color (U) LT. YELLOW Normal YELLOW [facility] Comment on above: Performed By: #### E RUR, PREGU #### [facility] [address] [place] [address] Dr. Desean NEVAREZ A micrscopic examination will be performed if indicated. Normal [facility] Comment on above: Performed By: #### E RUR, PREGU #### [facility] [address] [place] [address] Dr. Desean Ward Glucose Ql (U) Negative Normal NEGATIVE The [facility] Comment on above: Performed By: #### E RUR, PREGU #### [facility] [address] [place] [address] Dr. Desean Ward Hemoglobin Ql (U) Negative Normal NEGATIVE [facility] Comment on above: Performed By: #### E RUR, PREGU #### [facility] [address] [place] [address] Dr. Desean Ward Ketones Ql (U) Negative Normal NEGATIVE The [facility] Comment on above: Performed By: #### E RUR, PREGU #### [facility] [address] [place] [address] Dr. Desean Ward LEUKOCYTES Negative Normal NEGATIVE [facility] Comment on above: Performed By: #### E RUR, PREGU #### [facility] [address] [place] [address] Dr. Desean Ward Nitrite Ql (U) Negative Normal NEGATIVE [facility] Comment on above: Performed By: #### E RUR, PREGU #### [facility] [address] [place] [address] Dr. Desean Ward pH (U) 6.0 [pH] Normal 5-9 [facility] Comment on above: Performed By: #### E RUR, PREGU #### [facility] [address] [place] [address] Dr. Desean Ward SPEC GRAVITY <=1.005 Abnormal 1.005-<=1.0 25 [facility] Comment on above: Performed By: #### E RUR, PREGU #### [facility] [address] [place] [address] Dr. Desean Ward UA PROTEIN Negative Normal NEGATIVE/ TRACE [facility] Comment on above: Performed By: #### E RUR, PREGU #### [facility] [address] [place] [address] Dr. Desean Ward UR MICRO IND NOT INDICATED Normal The [facility] Comment on above: Performed By: #### E TAYLAR, PREGU #### [facility] [address] [place] [address] Dr. Desean Ward Urobilinogen Qn (U) 1.0 {Saul'U}/dL Normal 0.2 - 1. 0 [facility] Comment on above: Performed By: #### E RUR, PREGU #### [facility] [address] [place] [address] Dr. Desean Ward LIPASEon 05-18-2022 Lipase [Catalytic activity/Vol] 109.0 U/L Normal 73.0-393.0 [facility] Comment on above: Performed By: #### C MP, LIPA, CMADM, JHONY #### [facility] [address] [place] [address] Dr. Desean Ward URon 05-18-2022 , QUAL Negative Normal NEGATIVE [facility] Comment on above: Performed By: #### Jena GORMAN, PREGU #### [facility] [address] [place] [address] Dr. Desean Ward PROF 14(COMP METB)on 022 Albumin [Mass/Vol] 3.6 g/dL Normal 3.4-5.0 [facility] Comment on above: Performed By: #### C MP, LIPA, CMADM, JHONY #### [facility] [address] [place] [address] Dr. Desean Ward Albumin/Globulin [Mass ratio] 1.1 {ratio} Normal [facility] Comment on above: Performed By: #### C MP, LIPA, CMADM, JHONY #### [facility] [address] [place] [address] Dr. Desean Ward ALP [Catalytic activity/Vol] 89 U/L Normal 46-116 [facility] Comment on above: Performed By: #### C MP, LIPA, CMADM, JHONY #### [facility] [address] [address] [address] Desean Ward ALT [Catalytic activity/Vol] 45 U/L Normal 14-59 [facility] Comment on above: Performed By: #### C MP, LIPA, CMADM, JHONY #### [facility] [address] [address] [address] Desean Ward Anion gap [Moles/Vol] 8.5 mmol/L Normal [facility] Comment on above: Performed By: #### C MP, LIPA, CMADM, JHONY #### [facility] [address] [address] [address] Desean Ward AST [Catalytic activity/Vol] 14 U/L Critically low 15-37 [facility] Comment on above: Performed By: #### C MP, LIPA, CMADM, JHONY #### [facility] [address] [place] [address] Dr. Desean Ward Bilirubin [Mass/Vol] 0.4 mg/dL Normal 0.2-1.0 [facility] Comment on above: Performed By: #### C MP, LIPA, CMADM, JHONY #### [facility] [address] [address] [address] Desean Ward Calcium [Mass/Vol] 8.7 mg/dL Normal 8.5-10.1 [facility] Comment on above: Performed By: #### C MP, LIPA, CMADM, JHONY #### [facility] [address] [place] [address] Dr. Desean Ward Chloride [Moles/Vol] 98 mmol/L Normal 98-107 [facility] Comment on above: Performed By: #### C MP, LIPA, CMADM, JHONY #### [facility] [address] [place] [address] Dr. Desean Ward CO2 [Moles/Vol] 28.9 mmol/L Normal 21.0-32.0 [facility] Comment on above: Performed By: #### C MP, LIPA, CMADM, JHONY #### [facility] [address] [place] [address] Dr. Desean Ward Creatinine [Mass/Vol] 0.83 mg/dL Normal 0.55-1.02 [facility] Comment on above: Performed By: #### C MP, LIPA, CMADM, JHONY #### [facility] [address] [place] [address] Dr. Desean Ward EGFR-AF [place] >60 Normal >=60 [facility] Comment on above: Performed By: #### C MP, LIPA, CMADM, JHONY #### [facility] [address] [address] [address] Desean Ward EGFR-NON AF [place] >60 Normal >=60 [facility] Comment on above: Performed By: #### C MP, LIPA, CMADM, JHONY #### [facility] [address] [place] [address] Dr. Desean Ward Globulin (S) [Mass/Vol] 3.2 g/dL Normal [facility] Comment on above: Performed By: #### C MP, LIPA, CMADM, JHONY #### [facility] [address] [place] [address] Dr. Desean Ward Glucose [Mass/Vol] 95 mg/dL Normal 74-106 [facility] Comment on above: Performed By: #### C MP, LIPA, CMADM, JHONY #### [facility] [address] [place] [address] Dr. Desean Ward Potassium [Moles/Vol] 3.4 mmol/L Critically low 3.5-5.1 [facility] Comment on above: Performed By: #### C MP, LIPA, CMADM, JHONY #### [facility] [address] [place] [address] Dr. Desean Ward Protein [Mass/Vol] 6.8 g/dL Normal 6.4-8.2 [facility] Comment on above: Performed By: #### C MP, LIPA, CMADM, JHONY #### [facility] [address] [place] [address] Dr. Desean Ward Sodium [Moles/Vol] 132 mmol/L Critically low 136-145 [facility] Comment on above: Performed By: #### C MP, LIPA, CMADM, JHONY #### [facility] [address] [address] [address] Desean Ward Urea nitrogen [Mass/Vol] 6.0 mg/dL Critically low 7.0-18.0 [facility] Comment on above: Performed By: #### C MP, LIPA, CMADM, JHONY #### [facility] [address] [address] [address] Desean Ward Urea nitrogen/Creatinine [Mass ratio] 7.2 mg/mg Normal [facility] Comment on above: Performed By: #### C MP, LIPA, CMADM, JHONY #### [facility] [address] [address] [address] Desean Ward XR CHEST 1 Von [...] by: MONSE CARRIZALES Date: 2022-05-17 23:22 Normal [facility] Vital Signs Date Time Vital Sign Value Performing Clinician Karen bravo 09-16-2024 08:18-0500 Body height 152.4 cm [facility] 09-16-2024 08:18-0500 Body mass index (BMI) [Ratio] 39.45 kg/m2 [facility] 09-16-2024 08:18-0500 Body weight 91.63 kg [facility] 09-12-2022 13:37-0500 Body height 157.48 cm DO Jose Shirin Work Phone: [facility] 09-12-2022 13:37-0500 Body weight 81.65 kg DO Jose Shirin Work Phone: [facility] 09-12-2022 13:37-0500 Diastolic blood pressure 94 mm[Hg] DO Jose Shirin Work Phone: [facility] 09-12-2022 13:37-0500 Heart rate 105 /min DO Jose Shirin Work Phone: [facility] 09-12-2022 13:37-0500 Respiratory rate 20 /min DO Jose Shirin Work Phone: [facility] 09-12-2022 13:37-0500 SaO2% (BldA) [Mass fraction] 95 % DO Jose Shirin Work Phone: [facility] 09-12-2022 13:37-0500 Systolic blood pressure 142 mm[Hg] DO Jose Shirin Work Phone: [facility] Encounters Encounter Date Encounter Type Care Provider Facility Start: 03-10-2025 End: 03-10-2025 Emergency department patient visit NO PCP NO PCP [facility] Start: 03-08-2025 End: 03-09-2025 Emergency department patient visit AUGUSTINE LANDON [facility] Start: 09-16-2024 End: 09-18-2024 ambulatory WHITNEY Sandoval [facility] Start: 09-16-2024 End: 09-18-2024 Subsequent hospital visit by physician Taye Obrien [facility] Comment on above: Encounter for screen ing mammogram for malignant neoplasm of breast Start: 11-20-2023 ambulatory Fercho [place] acility:[facility] Start: 07-25-2023 End: 07-26-2023 [facility] Start: 07-17-2023 ambulatory OUSMANE SOTO [facility] Start: 07-14-2023 End: 07-15-2023 ambulatory [facility] Start: 07-14-2023 End: 07-14-2023 ambulatory OUSMANE Marcus AKILAH [facility] Start: 05-26-2023 End: 05-27-2023 ambulatory [facility] Start: 05-26-2023 End: 05-27-2023 Encounter for gynecological examination (general) (routine) without abnormal findings DELPHINE FERMIN [facility] Start: 04-30-2023 End: 05-03-2023 ambulatory WHITNEY MCCULLOUGH [facility] Start: 04-30-2023 End: 05-02-2023 Subsequent hospital visit by physician [facility] Comment on above: Encounter for screen ing mammogram for malignant neoplasm of breast Start: 09-12-2022 End: 09-12-2022 Emergency department patient visit DO Jose Carpio Work Phone: [facility] Work Phone: Start: 05-17-2022 End: 05-18-[address] [facility] Facility: Procedures Date Procedure Procedure Detail Performing Clinician Start: 09-16-2024 Screening mammograph y bi 2-view breast inc cad Whitney TERRELL Work Phone: Start: 05-26-2023 Microscopic observat ion [Identifier] in Cervix by Cyto stain [facility] Start: 04-30-2023 Screening mammograph y bi 2-view breast inc cad Whitney TERRELL Work Phone: Start: 06-10-2021 Microscopic observat ion [Identifier] in Cervix by Cyto stain [facility] Plan of Treatment Date Care Activity Detail Author Start: 08-13-2028 Lipid panel Lipids [facility] Start: 05-26-2028 Screening for malign ant neoplasm of cervix [facility] Start: 04-15-2028 Lipid panel Lipids [facility] Start: 09-16-2026 Screening for malign ant neoplasm of breast Breast cancer screen [facility] Start: 05-26-2026 Screening for malign ant neoplasm of cervix Pap smear [facility] Start: 09-02-2025 Depression Monitoring Depression Mon itoring [facility] Start: 10-28-2024 End: 10-28-2024 Patient encounter procedure 10/28/2024 2:00 PM EDT Office Visit [facility] [address] [place] [address] [place] [phone] Bell Reyes PA [address] [facility], [address] [place] [address] MIDWIFE PRACTITIONER - seizures [facility] Comment on above: MIDWIFE PRACTITIONER - seizures Start: 10-21-2024 End: 10-21-2024 Patient encounter procedure 10/21/2024 2:45 PM EST Appointment [facility] [address], [address] [phone] Abner Morales, PT FCE Visit #2 [facility] Comment on above: FCE Visit #2 Start: 10-19-2024 End: 10-19-2024 Patient encounter procedure 10/19/2024 2:45 PM EST Appointment [facility] [address], [address] [phone] Abner Morales, PT FCE Visit #1 [facility] Comment on above: FCE Visit #1 Start: 10-19-2024 ambulatory Ambulatory [facility] Start: 10-06-2024 End: 10-06-2024 Patient encounter procedure 10/06/2024 3:30 PM EST Office Visit [facility] [address] [phone] Adela Dutton APRN - MIDWIFE PRACTITIONER [address] [address] annual [facility] Comment on above: annual Start: 2024 Screening for malign ant neoplasm of colon [facility] Start: 06-10-2024 Screening for malign ant neoplasm of cervix [facility] Start: 04-18-2024 COVID-19 Vaccine ( season) COVID-19 Vaccine ( season) [facility] Start: 04-08-2024 Depression Monitoring Depression Mon itoring [facility] Start: 03-18-2024 Influenza vaccination Flu vaccine (# 1) [facility] Start: 10-09-2023 End: 10-09-2023 Patient encounter procedure 10/09/2023 1:00 PM EST Office Visit [facility] [address] [facility] [place] [address] [place] [address] [facility] [address] [place], [place] [phone] Return in about 6 weeks (around 05/20/2023) for Med cehck paxil smoking check. [facility] Comment on above: Return in about 6 we eks (around 05/20/2023) for Med cehck paxil smoking check. Start: 03-18-2023 Influenza vaccination Flu vaccine (# 1) [facility] Start: 09-12-2022 [facility] Start: 2009 Screening for malign ant neoplasm of cervix HPV (without or with Pap) [facility] Start: 1998 DTaP/Tdap/Td vaccine (1 - Tdap) DTaP/Tdap/Td vaccine (1 - Tdap) [facility] Start: 1998 Hepatitis B vaccine (1 of 3 - 19+ 3-dose series) Hepatitis B vaccine (1 of 3 - 19+ 3-dose series) [facility] Start: 1994 HIV screening HIV screen [facility] Start: 1985 Pneumococcal 0-64 ye ars Vaccine (1 - PCV) Pneumococcal 0-64 years Vaccine (1 - PCV) [facility] Start: 1985 Pneumococcal 0-64 ye ars Vaccine (1 of 2 - PCV) Pneumococcal 0-64 years Vaccine (1 of 2 - PCV) [facility] Start: 02-05-1980 COVID-19 Vaccine (#1) COVID-19 Vacci ne (#1) [facility] Start: 1979 Hepatitis B vaccine (1 of 3 - 3-dose series) Hepatitis B vaccine (1 of 3 - 3-dose series) [facility] Patient referral [facility] Work Phone: Immunizations Immunization Date Immunization Notes Care Provider Fa neshaty 07-17-2023 Influenza, injectabl e, Madin Sims Canine Kidney, preservative free, quadrivalent Stc [facility] Payers Date Payer Category Payer Self-pay [id number] 1979 Unknown [id number] [id number] [id number] 1979 Unknown [id number] 2.16.8 [id number] 1979 Unknown [id number] 2.16.8 [id number] 1979 Unknown [id number] 2.16. [id number] 1979 Unknown [id number] 2.16. [id number] 1979 Unknown [id number] 2.16. [id number] 1979 Unknown [id number] 2.16.8 [id number] 1979 Unknown [id number] 2.16.8 [id number] 1979 Unknown [id number] 1979 Unknown [id number] 1959 Unknown [id number] Medicaid [employer] [id number] Medicaid [place] Advantage [id number] Unknown [id number] 2.16.8 [id number] Social History Date Type Detail Facility Start: 09-12-2022 [facility] Start: 1980 Sex Assigned At Female F [facility] Start: 08-18-1995 [facility] daily [email or web address] Start: 08-18-1995 History of tobacco use Cigarette Smo ker [email or web address] Start: 04-08-2023 End: 08-12-2023 Cigarettes smoked current (pack per day) - Reported 1 [email or web address] Start: 04-08-2023 End: 08-11-2023 Tobacco use and exposure Smokeless tobacco non-user [email or web address] Start: 04-30-2023 End: 09-02-2024 Alcohol intake Lifetime non-drinker (finding) [email or web address] Start: 04-30-2023 End: 08-12-2023 Tobacco use panel [email or web address] How hard is it for y ou to pay for the very basics like food, housing, medical care, and heating Very hard [email or web address] Patient Health Questionnaire 9 item (PHQ-9) total score [Reported] 0 [employer] (I/We) worried johnny er (my/our) food would run out before (I/we) got money to buy more. Often true [email or web address] At any time in the p ast 12 months, were you homeless or living in [place] [facility] [including now]? Yes [email or web address] Start: 04-08-2023 Tobacco Comment Unsure if she wants to quit [email or web address] Start: 1980 Sex Assigned At Not on file B ON [employer] Start: 08-11-2023 Tobacco smoking stat [facility] Never smoked tobacco [employer] Has the electric, ga s, oil, or water company threatened to shut off services in your home in past 12Mo No [employer] Are you now , , , , never or living with a partner? [employer] How often to you hav e a drink containing alcohol? Never [employer] Do you feel stress - tense, restless, nervous, or anxious, or unable to sleep at night because your mind is troubled all the time - these days [OSQ] Very much [facility] [employer] (I/We) worried wherory er (my/our) food would run out before (I/we) got money to buy more. Sometimes true [facility] NEGATED: Highlighted rowStart: NINF History of tobacco use Passive smoker [facility] Evaluation note Note Date & Type Note Facility Evaluation note No assessment information availa ble [facility] Work Phone: Evaluation note Note Date & Type Note Facility Evaluation note Diagnosis Encounter for screening mammogram for malignant neoplasm of breast Other screening mammogram documented in this encounter [facility] Evaluation note Note Date & Type Note Facility Evaluation note Diagnosis Encounter for screening mammogram for malignant neoplasm of breast Other screening mammogram documented in this encounter [facility] Hospital Discharge instructions Note Date & Type Note Facility Hospital Discharge instructions Additional Instructions Follow-up with your primary care doctor and mental health Return to the ED if develop worsening symptoms or concerns [facility] Work Phone: Summary Purpose Family [...] Specialty Diagnoses / Procedures Referred By Ron t Referred To Contact Radiology Diagnoses Encounter for screening mammogram for malignant neoplasm of breast Procedures JAMEE IRAM DIGITAL SCREEN SELF REFERRAL W OR WO CAD BILATERAL JAMEE DIGITAL SCREEN W [place] [address] [place] [address] Referral ID Status Reason Start Date Expiration Date Visits Re quested Visits Authorized [id number] Closed 04/08/2023 04/07/2024 1 1 Additional Source Comments INFORMATION SOURCE (unrecogn ized section and content) DATE CREATED AUTHOR 06/28/2022 Brittny ling DATE CREATED AUTHOR AUTHOR'S ORGANIZ ATION 07/15/2023 [facility] DATE CREATED AUTHOR AUTHOR'S ORGANIZ ATION 07/31/2023 [facility] DATE CREATED AUTHOR AUTHOR'S ORGANIZ ATION 08/21/2023 [facility] DATE CREATED AUTHOR AUTHOR'S ORGANIZ ATION 09/05/2024 [facility] DATE CREATED AUTHOR AUTHOR'S ORGANIZ ATION 09/20/2024 [facility] DATE CREATED AUTHOR AUTHOR'S ORGANIZ ATION 03/10/2025 [facility] Care Teams (unrecognized sec tion and content) Team Status: Inactive Member Role Status Dates Jose Carpio DO Emergency Provider Active PHYSICIAN NO FAMILY Primary Care Provider Active Team Status: Active Member Role Status Dates PHYSICIAN NO FAMILY Primary Care Provider Active Roller Bearing Inspector Relationship Specialty Start [place] [address] [facility] [place], [place] [phone] PCP - General Physician Inside [employer] 04/08/23 Roller Bearing Inspector Relationship Specialty Start [place] [address] [place], [place] [phone] PCP - General Physician [employer] 04/08/23 Goals (unrecognized section and content) Goals may be documented in a n alternate section Reason for Visit (unrecogniz ed section and content) Specialty Diagnoses / Procedures Referred By oRn t Referred To Contact Radiology Diagnoses Encounter for screening mammogram for malignant neoplasm of breast Procedures JAMEE IRAM DIGITAL SCREEN SELF REFERRAL W OR WO CAD BILATERAL JAMEE DIGITAL SCREEN W [place] [address] [place] [address] Referral ID Status Reason Start Date Expiration Date Visits Re quested Visits Authorized [id number] Closed 04/08/2023 04/07/2024 1 1 Specialty Diagnoses / Procedures Referred By Contac t Referred To Contact Radiology Diagnoses Encounter for screening mammogram for malignant neoplasm of breast Procedures JAMEE IRAM DIGITAL SCREEN BILATERAL JAMEE DIGITAL SCREEN W OR WO CAD BILATERAL Whitney Mccullough, NIDHI [address] [facility] [place] [address] Referral ID Status Reason Start Date Expiration Date Visits Re quested Visits Authorized [id number] Closed 09/02/2024 09/02/2025 1 FOR RECORDS PERTAINING TO PATIENTS WHO [...] BE BASED ON THE PRIMARY CLINICAL RECORDS. [employer] [facility]. provides no warranty or guarantee of the accuracy or completeness of information in this document.
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
--- NOTE | 2025-05-04 20:55 | PC.NURSE ---
This RN at bedside while END STAPLER performs him coder portion of exam and collects swabs. Her clothing is collected and bagged to send for evidence and she is placed in a gown. Patient is very cooperative during the exam.
[2025-05-04] MEDS: LEVONORGESTREL 1.5 MG TABLET PO (21:26)
[2025-05-04] MEDS: DOXYCYCLINE MONOHYDRATE 100 MG CAPSULE PO (21:26)
[2025-05-04] MEDS: CEFTRIAXONE 500 MG VIAL IM (21:26)
[2025-05-04] MEDS: LIDOCAINE HCL 1% PF 20 MG/2 ML VIAL INJ (21:26)
== END 2025-05-04 22:00 | disposition home or self-care (01) ==
PROVIDERS: Emergency Provider Student in an Organized Health Care Education/Training Program
DX: T76.21XA Adult sexual abuse, suspected, initial encounter (principal); Z59.00 Homelessness unspecified; Z72.0 Tobacco use
CPT/HCPCS: 93005; 96372; 99284; J0696